=== PATIENT | female | born 1945 | race Caucasian/White ===

== ENCOUNTER 2019-05-15 18:03 | Inpatient (IN) | payer MEDICARE ==
[~2019-05-15] VITALS: Ht 152.4 cm; Wt 59.2 kg
[2019-05-15 18:29] LABS: BILIRUBIN,URINE MODERATE (NEG); CLARITY,URINE CLEAR; COLOR,URINE AMBER; NITRITE,URINE NEGATIVE (NEG); PH,URINE 5.5; PROTEIN,URINE NEGATIVE (NEG-TRACE)
[2019-05-15] MEDS ORDERED: IV NORMAL SALINE 1000ML BAG 1,000 ML IV SCH (18:30)
[2019-05-15 18:35] LABS: BASO # 0.1 x10^3/uL (0.0-0.2); BASO % 1 % (0-3); EOS % 0 % (0-3); HEMATOCRIT 42.1 % (36.0-47.0); HEMOGLOBIN 14.1 g/dL (12.0-15.5); LYMPH # 1.6 x10^3/uL (1.0-4.8); LYMPH % 12 % (24-48); MEAN CORPUSCULAR HEMOGLOBIN 31 pg (25-35); MEAN CORPUSCULAR HGB CONC 33 g/dL (31-37); MEAN CORPUSCULAR VOLUME 93 fL (79-100); MONO # 0.9 x10^3/uL (0.0-1.1); MONO % 7 % (0-9); NEUT # 10.4 x10^3/uL (1.8-7.7); NEUT % 80 % (31-73); PLATELET COUNT 238 x10^3/uL (140-400); RED BLOOD COUNT 4.54 x10^6/uL (3.50-5.40); WHITE BLOOD COUNT 12.9 x10^3/uL (4.0-11.0)
[2019-05-15 18:35] LABS: AMORPHOUS SEDIMENT,UR PRESENT /HPF; BACTERIA,URINE 0 /HPF (0-FEW); RBC,URINE 0 /HPF (0-2); SQUAMOUS EPITHELIAL CELL,UR FEW /LPF; WBC,URINE OCC /HPF (0-4)
--- NOTE | 2019-05-15 18:35 | PHYS DOC ---
Adult General Chief Complaint Chief Complaint: generalized weakness HPI HPI Patient is a 73-year-old female who presents from home via EMS with report of generalized weakness. Family reports that patient has not been out of bed for the last 70 hours. They also indicate the patient has not been eating regularly and has not been taking her medications. Patient does admit to a cough but denies any chest pain or shortness of breath. She does not believe that she is been running a fever. She states that her only complaint is feeling sleepy. She states that otherwise she doesn't know why she is here. Additional history is limited due to likely dementia.[] Review of Systems Review of Systems Constitutional: Denies fever or chills [] Respiratory: Positive cough without shortness of breath [] Cardiovascular: No additional information not addressed in HPI [] GI: Denies abdominal pain, nausea, vomiting or diarrhea [] Integument: Denies rash or skin lesions [] Neurologic: Denies headache, focal weakness or sensory changes [] All other systems were reviewed and found to be within normal limits, except as documented in this note. Current Medications Current Medications Current Medications Medications (Trade) Dose Ordered Sig/Maria Esther Start Time Stop Time Status Last Admin Dose Admin Azithromycin (Zithromax) 500 mg 1X ONCE 05/15/19 20:00 05/15/19 20:01 DC 05/15/19 19:59 500 MG Ceftriaxone Sodium (Rocephin) 1 gm 1X ONCE 05/15/19 20:00 05/15/19 20:01 DC 05/15/19 19:59 1 GM Sodium Chloride 1,000 ml @ 1,000 mls/hr Q1H 05/15/19 18:30 05/15/19 19:29 DC 05/15/19 19:13 1,000 MLS/HR Allergies Allergies Allergies Coded Allergies Type Severity Reaction Last Updated Verified No Known Drug Allergies 05/15/19 No Physical Exam Physical Exam Constitutional: Well developed, well nourished, no acute distress, non-toxic appearance. [] HENT: Normocephalic, atraumatic, bilateral external ears normal, oropharynx dry, no oral exudates, nose normal. [] Eyes: PERRLA, EOMI, conjunctiva normal, no discharge. [] Neck: Normal range of motion, no tenderness, supple, no stridor. [] Cardiovascular: Regular rate and rhythm[] Lungs & Thorax: Coarse rhonchi are noted bilaterally to auscultation [] Abdomen: Bowel sounds normal, soft, no tenderness. [] Skin: Warm, dry, no erythema, no rash. [] Extremities: No tenderness, no cyanosis, no clubbing, ROM intact, no edema. [] Neurologic: Awake and alert, no focal deficits noted. [] Current Patient Data Vital Signs Vital Signs Date Time Temp Pulse Resp B/P (MAP) Pulse Ox O2 Delivery O2 Flow Rate FiO2 05/15/19 18:03 97.7 103 20 94/51 (65) 87 Room Air 97.7 Lab Values Laboratory Tests Test 05/15/19 18:21 05/15/19 18:25 Urine Collection Type U cath Urine Color Ly Urine Clarity Clear Urine pH 5.5 Urine Specific [place] 1.020 Urine Protein Negative mg/dL (NEG-TRACE) Urine Glucose (UA) Negative mg/dL (NEG) Urine Ketones (Stick) Negative mg/dL (NEG) Urine Blood Negative (NEG) Urine Nitrite Negative (NEG) Urine Bilirubin Moderate (NEG) Urine Urobilinogen Dipstick 1.0 mg/dL (0.2 mg/dL) Urine Leukocyte Esterase Negative (NEG) Urine RBC 0 /HPF (0-2) Urine WBC Occ /HPF (0-4) Urine Squamous Epithelial Cells Few /LPF Urine Amorphous Sediment Present /HPF Urine Bacteria 0 /HPF (0-FEW) Urine Mucus Slight /LPF White Blood Count 12.9 x10^3/uL (4.0-11.0) H Red Blood Count 4.54 x10^6/uL (3.50-5.40) Hemoglobin 14.1 g/dL (12.0-15.5) Hematocrit 42.1 % (36.0-47.0) Mean Corpuscular Volume 93 fL (79-100) Mean Corpuscular Hemoglobin 31 pg (25-35) Mean Corpuscular Hemoglobin Concent 33 g/dL (31-37) Red Cell Distribution Width 15.0 % (11.5-14.5) H Platelet Count 238 x10^3/uL (140-400) Neutrophils (%) (Auto) 80 % (31-73) H Lymphocytes (%) (Auto) 12 % (24-48) L Monocytes (%) (Auto) 7 % (0-9) Eosinophils (%) (Auto) 0 % (0-3) Basophils (%) (Auto) 1 % (0-3) Neutrophils # (Auto) 10.4 x10^3/uL (1.8-7.7) H Lymphocytes # (Auto) 1.6 x10^3/uL (1.0-4.8) Monocytes # (Auto) 0.9 x10^3/uL (0.0-1.1) Eosinophils # (Auto) 0.0 x10^3/uL (0.0-0.7) Basophils # (Auto) 0.1 x10^3/uL (0.0-0.2) Sodium Level 140 mmol/L (136-145) Potassium Level 3.9 mmol/L (3.5-5.1) Chloride Level 97 mmol/L (98-107) L Carbon Dioxide Level 31 mmol/L (21-32) Anion Gap 12 (6-14) Blood Urea Nitrogen 28 mg/dL (7-20) H Creatinine 1.7 mg/dL (0.6-1.0) H Estimated GFR (Cockcroft-Gault) 29.3 BUN/Creatinine Ratio 16 (6-20) Glucose Level 139 mg/dL (70-99) H Calcium Level 9.0 mg/dL (8.5-10.1) Magnesium Level 1.1 mg/dL (1.8-2.4) L Total Bilirubin 1.5 mg/dL (0.2-1.0) H Aspartate Amino Transferase (AST) 24 U/L (15-37) Alanine Aminotransferase (ALT) 22 U/L (14-59) Alkaline Phosphatase 74 U/L (46-116) Creatine Kinase 56 U/L (26-192) Troponin I Quantitative 0.065 ng/mL (0.000-0.055) WD-Sto-X-Type Natriuretic Peptide 914 pg/mL (0-449) H Total Protein 6.4 g/dL (6.4-8.2) Albumin 3.4 g/dL (3.4-5.0) Albumin/Globulin Ratio 1.1 (1.0-1.7) Laboratory Tests 05/15/19 18:25 Laboratory Tests 05/15/19 18:25 EKG EKG [] Interpretation Time: EKG demonstrates normal sinus rhythm with rate of 100. Radiology/Procedures Radiology/Procedures [] Course & Med Decision Making Course & Med Decision Making Pertinent Labs and Imaging studies reviewed. (See chart for details) [] Dragon Disclaimer Dragon Disclaimer This electronic medical record was generated, in whole or in part, using a voice recognition dictation system. Departure Departure Impression: Primary Impression: Left lower lobe pneumonia Additional Impression: Elevated troponin Disposition: ADMITTED INPATIENT Admitting Physician: IDA Condition: GOOD Referrals: CLAY SOSA (PCP) Problem Qualifiers Primary Impression: Left lower lobe pneumonia Pneumonia type: due to unspecified organism Qualified Codes: J18.1 - Lobar pneumonia, unspecified organism LC CLAY Jr. DO May 15, 2019 18:35
[2019-05-15 18:42] LABS: CREATININE 1.7 mg/dL (0.6-1.0); GFR 29.3; POTASSIUM 3.9 mmol/L (3.5-5.1)
[2019-05-15 18:50] LABS: ALBUMIN 3.4 g/dL (3.4-5.0); ALBUMIN/GLOBULIN RATIO 1.1 (1.0-1.7); MAGNESIUM 1.1 mg/dL (1.8-2.4); TOTAL BILIRUBIN 1.5 mg/dL (0.2-1.0); TOTAL PROTEIN 6.4 g/dL (6.4-8.2)
[2019-05-15] MEDS ORDERED: cefTRIAXone IV Push 1 GM VIAL. IVP ONE (20:00)
[2019-05-15] MEDS ORDERED: AZITHROMYCIN 250 MG TABLET. PO ONE (20:00)
[2019-05-15] MEDS ORDERED: ACETAMINOPHEN 325 MG TABLET. PO PRN (20:15)
[2019-05-15] MEDS: IPRATRPIUM/ALBUTEROL 0.5/2.5MG 3 ML NEBU. NEB SCH (20:30)
[2019-05-15 22:20] VITALS: BP 115/83
--- NOTE | 2019-05-15 23:28 | RAD ---
PORTABLE CHEST 1V History: Cough Comparison: None. Findings: Single view of the chest is submitted. Cardiac silhouette is within normal limits. There is likely emphysema. There is no dependent pleural fluid or pneumothorax. There is no lobar consolidation. There is calcific opacity of the proximal left humerus. Impression: 1. There is suspected emphysema, no significant infiltrate. 2. There is calcified lesion of the proximal humerus, primary consideration a chondroid lesion. Electronically signed by: He Arreguin MD (05/15/2019 11:25 PM) [facility]
[2019-05-16] MEDS: IV NORMAL SALINE 1000ML BAG 1,000 ML IV SCH ×3 (00:15→16:30)
[2019-05-16 03:15] VITALS: BP 109/63
--- NOTE | 2019-05-16 05:11 | EKG ---
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
[2019-05-16 05:24] LABS: BASO % 0 % (0-3); EOS % 0 % (0-3); HEMATOCRIT 36.5 % (36.0-47.0); HEMOGLOBIN 11.9 g/dL (12.0-15.5); LYMPH # 1.4 x10^3/uL (1.0-4.8); LYMPH % 12 % (24-48); MEAN CORPUSCULAR HEMOGLOBIN 30 pg (25-35); MEAN CORPUSCULAR HGB CONC 33 g/dL (31-37); MEAN CORPUSCULAR VOLUME 93 fL (79-100); MONO # 0.5 x10^3/uL (0.0-1.1); MONO % 4 % (0-9); NEUT # 9.8 x10^3/uL (1.8-7.7); NEUT % 84 % (31-73); PLATELET COUNT 188 x10^3/uL (140-400); RED BLOOD COUNT 3.94 x10^6/uL (3.50-5.40); WHITE BLOOD COUNT 11.7 x10^3/uL (4.0-11.0)
[2019-05-16 05:38] LABS: CALCIUM 8.2 mg/dL (8.5-10.1); CREATININE 1.4 mg/dL (0.6-1.0); GFR 36.7; POTASSIUM 3.5 mmol/L (3.5-5.1)
[2019-05-16 07:00] VITALS: BP 92/54
[2019-05-16] MEDS: IPRATRPIUM/ALBUTEROL 0.5/2.5MG 3 ML NEBU. NEB SCH ×4 (07:37→19:32)
[2019-05-16 08:54] LABS: CHOLESTEROL/HDL RATIO 4.3
[2019-05-16 11:00] VITALS: BP 94/58
--- NOTE | 2019-05-16 11:20 | PDOC2 ---
ELPIDIO CROFT MOTION PICTURE ACTOR 05/16/19 1120: CARDIAC CONSULT DATE OF CONSULT Date of Consult DATE: 05/16/19 TIME: 11:08 REASON FOR CONSULT Reason for Consult: Elevated troponin REFERRING PHYSICIAN Referring Physician: Quyen SOURCE Source: Chart review, Patient HISTORY OF PRESENT ILLNESS HISTORY OF PRESENT ILLNESS This is a 73 yo female admitted for poor appetite, coughing, and looking sleepy and weak. This was noticed by her family member. She has dementia and currently confused, yelling at times. This was noticed in the last 3 days. Limited information as I was not able to contact the family. She is cooperative otherwise and denies any CP nor SOA. She does think that she is in a fci. PAST MEDICAL HISTORY Past Medical History unknown, dementia PAST SURGICAL HISTORY Past Surgical History unknown FAMILY HISTORY Family History: Family History Unknown SOCIAL HISTORY Lives: with Family CURRENT MEDICATIONS CURRENT MEDICATIONS Current Medications Medications (Trade) Dose Ordered Sig/Maria Esther Route PRN Reason Start Time Stop Time Status Last Admin Dose Admin Sodium Chloride 1,000 ml @ 1,000 mls/hr Q1H IV 05/15/19 18:30 05/15/19 19:29 DC 05/15/19 19:13 Ceftriaxone Sodium (Rocephin) 1 gm 1X ONCE IVP 05/15/19 20:00 05/15/19 20:01 DC 05/15/19 19:59 Azithromycin (Zithromax) 500 mg 1X ONCE PO 05/15/19 20:00 05/15/19 20:01 DC 05/15/19 19:59 Sodium Chloride 1,000 ml @ 100 mls/hr Q10H IV 05/15/19 20:30 05/16/19 20:29 05/16/19 00:15 Albuterol/ Ipratropium (Duoneb) 3 ml RTQID NEB 05/15/19 20:30 05/17/19 20:29 05/16/19 07:37 ALLERGIES ALLERGIES: Coded Allergies: No Known Drug Allergies (Unverified , 05/15/19) ROS Review of System limited, confuse PHYSICAL EXAM General: Alert, Cooperative, No acute distress HEENT: Atraumatic, Mucous membr. moist/pink Lungs: Other (diminished bases) Heart: Regular rate (SR), Other (distant heart sounds) Abdomen: Soft, No tenderness Extremities: No cyanosis, No edema Skin: No breakdown, No significant lesion Neuro: Normal speech, Sensation intact Psych/Mental Status: Other (confuse) MUSCULOSKELETAL: Osteoarthritic changes both hands VITALS/I&O VITALS/I&O: Vital Signs Date Time Temp Pulse Resp B/P (MAP) Pulse Ox O2 Delivery O2 Flow Rate FiO2 05/16/19 08:00 Nasal Cannula 3.0 05/16/19 07:40 98 05/16/19 07:00 97.8 79 12 92/54 (67) 97.8 I & O 05/15/19 05/15/19 05/16/19 14:59 22:59 06:59 Intake Total 531 ml Balance 531 ml LABS Lab: Laboratory Tests Test 05/15/19 18:21 05/15/19 18:25 05/15/19 23:00 05/16/19 04:30 Urine Collection Type U cath Urine Color Ly Urine Clarity Clear Urine pH 5.5 Urine Specific [place] 1.020 Urine Protein Negative mg/dL (NEG-TRACE) Urine Glucose (UA) Negative mg/dL (NEG) Urine Ketones (Stick) Negative mg/dL (NEG) Urine Blood Negative (NEG) Urine Nitrite Negative (NEG) Urine Bilirubin Moderate (NEG) Urine Urobilinogen Dipstick 1.0 mg/dL (0.2 mg/dL) Urine Leukocyte Esterase Negative (NEG) Urine RBC 0 /HPF (0-2) Urine WBC Occ /HPF (0-4) Urine Squamous Epithelial Cells Few /LPF Urine Amorphous Sediment Present /HPF Urine Bacteria 0 /HPF (0-FEW) Urine Mucus Slight /LPF White Blood Count 12.9 x10^3/uL (4.0-11.0) H 11.7 x10^3/uL (4.0-11.0) H Red Blood Count 4.54 x10^6/uL (3.50-5.40) 3.94 x10^6/uL (3.50-5.40) Hemoglobin 14.1 g/dL (12.0-15.5) 11.9 g/dL (12.0-15.5) L Hematocrit 42.1 % (36.0-47.0) 36.5 % (36.0-47.0) Mean Corpuscular Volume 93 fL (79-100) 93 fL (79-100) Mean Corpuscular Hemoglobin 31 pg (25-35) 30 pg (25-35) Mean Corpuscular Hemoglobin Concent 33 g/dL (31-37) 33 g/dL (31-37) Red Cell Distribution Width 15.0 % (11.5-14.5) H 15.0 % (11.5-14.5) H Platelet Count 238 x10^3/uL (140-400) 188 x10^3/uL (140-400) Neutrophils (%) (Auto) 80 % (31-73) H 84 % (31-73) H Lymphocytes (%) (Auto) 12 % (24-48) L 12 % (24-48) L Monocytes (%) (Auto) 7 % (0-9) 4 % (0-9) Eosinophils (%) (Auto) 0 % (0-3) 0 % (0-3) Basophils (%) (Auto) 1 % (0-3) 0 % (0-3) Neutrophils # (Auto) 10.4 x10^3/uL (1.8-7.7) H 9.8 x10^3/uL (1.8-7.7) H Lymphocytes # (Auto) 1.6 x10^3/uL (1.0-4.8) 1.4 x10^3/uL (1.0-4.8) Monocytes # (Auto) 0.9 x10^3/uL (0.0-1.1) 0.5 x10^3/uL (0.0-1.1) Eosinophils # (Auto) 0.0 x10^3/uL (0.0-0.7) 0.0 x10^3/uL (0.0-0.7) Basophils # (Auto) 0.1 x10^3/uL (0.0-0.2) 0.0 x10^3/uL (0.0-0.2) Sodium Level 140 mmol/L (136-145) 141 mmol/L (136-145) Potassium Level 3.9 mmol/L (3.5-5.1) 3.5 mmol/L (3.5-5.1) Chloride Level 97 mmol/L (98-107) L 99 mmol/L (98-107) Carbon Dioxide Level 31 mmol/L (21-32) 31 mmol/L (21-32) Anion Gap 12 (6-14) 11 (6-14) Blood Urea Nitrogen 28 mg/dL (7-20) H 29 mg/dL (7-20) H Creatinine 1.7 mg/dL (0.6-1.0) H 1.4 mg/dL (0.6-1.0) H Estimated GFR (Cockcroft-Gault) 29.3 36.7 BUN/Creatinine Ratio 16 (6-20) Glucose Level 139 mg/dL (70-99) H 109 mg/dL (70-99) H Calcium Level 9.0 mg/dL (8.5-10.1) 8.2 mg/dL (8.5-10.1) L Magnesium Level 1.1 mg/dL (1.8-2.4) L Total Bilirubin 1.5 mg/dL (0.2-1.0) H Aspartate Amino Transferase (AST) 24 U/L (15-37) Alanine Aminotransferase (ALT) 22 U/L (14-59) Alkaline Phosphatase 74 U/L (46-116) Creatine Kinase 56 U/L (26-192) Troponin I Quantitative 0.065 ng/mL (0.000-0.055) 0.066 ng/mL (0.000-0.055) 0.072 ng/mL (0.000-0.055) PJ-Cgi-M-Type Natriuretic Peptide 914 pg/mL (0-449) H Total Protein 6.4 g/dL (6.4-8.2) Albumin 3.4 g/dL (3.4-5.0) Albumin/Globulin Ratio 1.1 (1.0-1.7) Triglycerides Level 104 mg/dL (0-150) Cholesterol Level 151 mg/dL (0-200) LDL Cholesterol, Calculated 95 mg/dL (0-100) VLDL Cholesterol, Calculated 21 mg/dL (0-40) Non-HDL Cholesterol Calculated 116 mg/dL (0-129) HDL Cholesterol 35 mg/dL (40-60) L Cholesterol/HDL Ratio 4.3 Laboratory Tests 05/15/19 18:25 05/16/19 04:30 Laboratory Tests 05/15/19 18:25 05/16/19 04:30 ASSESSMENT/PLAN ASSESSMENT/PLAN 1. Hypoxia/Leukocytosis with possible pneumonia 2. Elevated troponin: mild. EKG will repeat with significant artifacts. No noted CP, suspect demand mediated from hypoxia/BUTCH 3. Possible AECOPD 4. Dementia: poor historian 5. BUTCH: prerenal 6. Hypomagnesemia Recommendations 1. I tried to call her house to talk to family member but no one was answering. Will try to clarify her hx and meds when family available. Discussed with RN 2. Preliminary EF normal. IVF, antibiotics on board. 3. Repeat EKG and obtain TTE and lipids, TSH 4. Pulmonary consult pending. Noncontrast CT chest 5. Will recheck Mg and will replace LYNNETTE MESSINA MD 05/16/19 2343: CARDIAC CONSULT ASSESSMENT/PLAN ASSESSMENT/PLAN Pt .seen and examined. Agree with above VIDEOTAPE SALES REPRESENTATIVE note. 73 y.o woman with mild dementia presenting with multiple issues. RLL bronchitis by CT. She has no cardiac symptoms. EKG, echo w/o acute findings. No further CV testing. Pls call with questions. ELPIDIO CROFT APRN May 16, 2019 11:20 LYNNETTE MESSINA MD May 16, 2019 23:43
--- NOTE | 2019-05-16 11:47 | EKG ---
[facility] [address] [place] [address] Test Date: 2019-05-16 Test Time: 11:30:41 Pat Name: THA CH Department: Room: 6 1 Gender: F Training Development Director: CELESTINA : 1945 Requested By: ELPIDIO CROFT Order Number: [id number] Reading MD: Shawn Echavarria MD Measurements Intervals [place] Rate: 77 P: 66 [place]: 186 QRS: 51 QRSD: 76 T: 0 QT: 390 QTc: 443 Interpretive Statements SINUS RHYTHM LOW VOLTAGE ABNORMAL ECG Electronically Signed On 05-16-2019 16:41:34 CDT by Shawn Echavarria MD
--- NOTE | 2019-05-16 12:13 | CARD ---
MR#: [id number] Date of Study: 05/16/2019 Ordering Physician: ELPIDIO CROFT, Referring Physician: ELPIDIO CROFT, Tech: Lorna Napier APPROVED REPORT EXAM: Two-dimensional and M-mode echocardiogram with Doppler and color Doppler. Other Information Quality : FairHR: 82bpm Technically limited study due to smoking and COPD INDICATION Elevated Troponin 2D DIMENSIONS RVDd3.7 (2.9-3.5cm)Left Atrium(2D)2.6 (1.6-4.0cm) IVSd1.4 (0.7-1.1cm)Aortic Root(2D)3.0 (2.0-3.7cm) LVDd3.8 (3.9-5.9cm)LVOT Diameter2.0 (1.8-2.4cm) PWd1.1 (0.7-1.1cm)LVDs2.6 (2.5-4.0cm) FS (%) 28.6 %SV30.5 ml Aortic Valve AoV Peak Del.96.3cm/sAoV VTI18.9cm AO Peak GR.3.7mmHgLVOT VTI 13.33cm AO Mean GR.2mmHg Mitral Valve MV E Qhkphkpk05.1cm/sMV DECEL [id number] MV A Mfclmryf70.2cm/sE/A Ratio0.8 TDI Lateral E' P. V6.76cm/sMedial E' P. V6.31cm/s E/Lateral E'7.6E/Medial E'8.1 Tricuspid Valve TR P. Cmqxvozq894vm/sRAP DZMFQSZR4lmCx TR Peak Gr.02upVxHFIS48oxNa Pulmonary Vein S1 Idirmabt17.2cm/sS2 Lkytagsy60.14cm/s D2 Jrkhhlas78.1cm/sPVa [id number] LEFT VENTRICLE The left ventricle is normal size. There is mild concentric left ventricular hypertrophy. The left ve ntricular systolic function is normal. The Ejection Fraction is 55-60%. There is normal LV segmental wall motion. Transmitral Doppler flow pattern is Grade I-abnormal relaxation pattern. RIGHT VENTRICLE The right ventricle is normal size. There is normal right ventricular wall thickness. The right ventr icular systolic function is normal. ATRIA The left atrium size is normal. The right atrium size is normal. The interatrial septum is intact wit h no evidence for an atrial septal defect or patent foramen ovale as noted on 2-D or Doppler imaging. AORTIC VALVE The aortic valve is normal in structure and function. Doppler and Color Flow revealed no significant aortic regurgitation. There is no significant aortic valvular stenosis. MITRAL VALVE The mitral valve is normal in structure and function. There is no evidence of mitral valve prolapse. There is no mitral valve stenosis. Doppler and Color Flow revealed trace mitral valve regurgitation. TRICUSPID VALVE The tricuspid valve is normal in structure and function. Doppler and Color Flow revealed trace tricus pid regurgitation with an estimated PAP of 29 mmHg. There is no tricuspid valve prolapse or vegetatio n. There is no tricuspid valve stenosis. PULMONIC VALVE The pulmonic valve is not well visualized. Doppler and Color Flow revealed no pulmonic valvular regur gitation. GREAT VESSELS The aortic root is normal in size. The IVC is normal in size and collapses >50% with inspiration. PERICARDIAL EFFUSION There is a trace to mild circumferential pericardial effusion with no hemodynamic significance. Critical Notification Critical Value: No <Conclusion> The left ventricle is normal size. The left ventricular systolic function is normal. The Ejection Fraction is 55-60%. There is mild concentric left ventricular hypertrophy. There is no significant aortic valvular stenosis. Doppler and Color Flow revealed no significant aortic regurgitation. Doppler and Color Flow revealed trace mitral valve regurgitation. Doppler and Color Flow revealed trace tricuspid regurgitation with an estimated PAP of 29 mmHg. There is a trace to mild circumferential pericardial effusion with no hemodynamic significance. Signed by : Az Ramsey MD Electronically Approved : 05/16/2019 12:12:46
[2019-05-16] MEDS ORDERED: MAGNESIUM SULFATE 4GM 100 ML IV ONE (13:00)
--- NOTE | 2019-05-16 13:38 | RAD ---
Examination: CT CHEST WO CONTRAST History: Pneumonia Comparison/Correlation: 05/15/2019 portable chest x-ray exam Findings: CT chest without contrast exam was performed. Sagittal and coronal reformatted images were provided. Significant calcific involvement of the coronary arteries is noted diffusely. Tracheobronchial tree is unremarkable. Right lower lobe bronchial wall thickening is noted likely representing bronchitis. Minimal right posterior basilar atelectasis suggested. Right lateral mid thoracic pulmonary nodule measuring 0.2 cm diameter is present on axial image 29. Punctate nodule involving the lateral aspect of the left upper lung field region is also present on axial image 18. Sclerotic lesion involving the left humeral head which may represent enchondroma. Impression: Right lower lobe bronchitis. Minimal posterior right basilar atelectasis. Bilateral very small pulmonary nodules are present. If the patient has no significant risk factors, then no further follow-up is required. Alternatively, interval follow-up at 12 months should be considered if there are significant risk factors for lung carcinoma. PQRS Compliance Statement: One or more of the following individualized dose reduction techniques were utilized for this examination: 1. Automated exposure control 2. Adjustment of the mA and/or kV according to patient size 3. Use of iterative reconstruction technique Electronically signed by: Kevin Cardoso MD (05/16/2019 1:36 PM) [facility]
--- NOTE | 2019-05-16 14:14 | HP ---
ADMIT DATE: 05/16/2019 CHIEF COMPLAINT: Weakness. HISTORY OF PRESENT ILLNESS: The patient is a pleasant 73-year-old female who presented via ambulance with generalized weakness. She has not been out of bed for 70 hours. She has not been feeling well and has a decreased appetite and not taking her meds. She has had a little bit of cough as well. She feels sleepy. Rates her symptoms at 7/10, it has been occurring for over 70 hours. They tried increasing her meds, but that did not work. While in the ER, the patient is noted to have left lower lobe pneumonia and elevated troponin to 0.072. We are going to admit the patient and consult Pulmonary and Cardiology. PAST MEDICAL HISTORY: Dementia. ALLERGIES: None. FAMILY HISTORY: Dementia. SOCIAL HISTORY: She does not drink, smoke or take drugs. MEDICATIONS: Reviewed, please refer to the MRAD. REVIEW OF SYSTEMS: Unable to obtain. The patient is too confused. PHYSICAL EXAMINATION: PHYSICAL EXAMINATION: VITALS: Within normal limits and are stable. GENERAL: No apparent distress. Alert and oriented. HEENT: Head is normocephalic, atraumatic, pupils were equally round and reactive to light and accommodation. NECK: Supple, no JVD, no thyromegaly was noted. LUNGS: She has some right lower lobe crackles. HEART: RRR, S1, S2 present. Peripheral pulses intact, no obvious murmurs were noted. ABDOMEN: Soft, nontender. Positive bowel sounds no organomegaly, normal bowel sounds. EXTREMITIES: Without any cyanosis, clubbing, or edema. Pedal pulses intact, Homans sign is negative. NEUROLOGIC: She has dementia and has decreased memory PSYCHIATRIC: Normal affect, normal mood. Stable. SKIN: No ulcerations or rashes, good skin turgor, no jaundice. VASCULAR: Good capillary refill, neurovascular bundle appears to be intact. LABORATORY DATA: White count is 12, hemoglobin 14. BUN is 28, creatinine 1.7, glucose 139. Chest x-ray shows left lower lobe pneumonia and right lower lobe bronchitis. ASSESSMENT AND PLAN: Pneumonia. The patient is being admitted. We will consult Cardiology and Pulmonary. IV antibiotics, DuoNebs, oxygen, home meds, PT, OT, DVT prophylaxis, cardiac monitoring. NIAL K. CASTLE, DO DR: DICK/sayra JOB#: [id number] / [id number]
--- NOTE | 2019-05-16 14:39 | NUR ---
SW following pt for dc planning. Chart reviewed and discussed with RN. Pt lives at home. PT/OT pending. SW will await for PT/OT assessment to eval skilled needs. Will continue to follow.
[2019-05-16 15:00] VITALS: BP 141/74
[2019-05-16] MEDS ORDERED: ALBUTEROL SULFATE 2.5 MG/3 ML NEBU. NEB PRN (15:30)
--- NOTE | 2019-05-16 15:31 | PDOC ---
PULMONARY PROGRESS NOTES Vitals Vital Signs Date Time Temp Pulse Resp B/P (MAP) Pulse Ox O2 Delivery O2 Flow Rate FiO2 05/16/19 15:20 97 Nasal Cannula 3.0 05/16/19 11:00 98.1 77 20 94/58 (70) 98.1 Labs Laboratory Tests Test 05/15/19 18:21 05/15/19 18:25 05/15/19 23:00 05/16/19 04:30 Urine Collection Type U cath Urine Color Ly Urine Clarity Clear Urine pH 5.5 Urine Specific [place] 1.020 Urine Protein Negative mg/dL (NEG-TRACE) Urine Glucose (UA) Negative mg/dL (NEG) Urine Ketones (Stick) Negative mg/dL (NEG) Urine Blood Negative (NEG) Urine Nitrite Negative (NEG) Urine Bilirubin Moderate (NEG) Urine Urobilinogen Dipstick 1.0 mg/dL (0.2 mg/dL) Urine Leukocyte Esterase Negative (NEG) Urine RBC 0 /HPF (0-2) Urine WBC Occ /HPF (0-4) Urine Squamous Epithelial Cells Few /LPF Urine Amorphous Sediment Present /HPF Urine Bacteria 0 /HPF (0-FEW) Urine Mucus Slight /LPF White Blood Count 12.9 x10^3/uL (4.0-11.0) 11.7 x10^3/uL (4.0-11.0) Red Blood Count 4.54 x10^6/uL (3.50-5.40) 3.94 x10^6/uL (3.50-5.40) Hemoglobin 14.1 g/dL (12.0-15.5) 11.9 g/dL (12.0-15.5) Hematocrit 42.1 % (36.0-47.0) 36.5 % (36.0-47.0) Mean Corpuscular Volume 93 fL (79-100) 93 fL (79-100) Mean Corpuscular Hemoglobin 31 pg (25-35) 30 pg (25-35) Mean Corpuscular Hemoglobin Concent 33 g/dL (31-37) 33 g/dL (31-37) Red Cell Distribution Width 15.0 % (11.5-14.5) 15.0 % (11.5-14.5) Platelet Count 238 x10^3/uL (140-400) 188 x10^3/uL (140-400) Neutrophils (%) (Auto) 80 % (31-73) 84 % (31-73) Lymphocytes (%) (Auto) 12 % (24-48) 12 % (24-48) Monocytes (%) (Auto) 7 % (0-9) 4 % (0-9) Eosinophils (%) (Auto) 0 % (0-3) 0 % (0-3) Basophils (%) (Auto) 1 % (0-3) 0 % (0-3) Neutrophils # (Auto) 10.4 x10^3/uL (1.8-7.7) 9.8 x10^3/uL (1.8-7.7) Lymphocytes # (Auto) 1.6 x10^3/uL (1.0-4.8) 1.4 x10^3/uL (1.0-4.8) Monocytes # (Auto) 0.9 x10^3/uL (0.0-1.1) 0.5 x10^3/uL (0.0-1.1) Eosinophils # (Auto) 0.0 x10^3/uL (0.0-0.7) 0.0 x10^3/uL (0.0-0.7) Basophils # (Auto) 0.1 x10^3/uL (0.0-0.2) 0.0 x10^3/uL (0.0-0.2) Sodium Level 140 mmol/L (136-145) 141 mmol/L (136-145) Potassium Level 3.9 mmol/L (3.5-5.1) 3.5 mmol/L (3.5-5.1) Chloride Level 97 mmol/L (98-107) 99 mmol/L (98-107) Carbon Dioxide Level 31 mmol/L (21-32) 31 mmol/L (21-32) Anion Gap 12 (6-14) 11 (6-14) Blood Urea Nitrogen 28 mg/dL (7-20) 29 mg/dL (7-20) Creatinine 1.7 mg/dL (0.6-1.0) 1.4 mg/dL (0.6-1.0) Estimated GFR (Cockcroft-Gault) 29.3 36.7 BUN/Creatinine Ratio 16 (6-20) Glucose Level 139 mg/dL (70-99) 109 mg/dL (70-99) Calcium Level 9.0 mg/dL (8.5-10.1) 8.2 mg/dL (8.5-10.1) Magnesium Level 1.1 mg/dL (1.8-2.4) 1.2 mg/dL (1.8-2.4) Total Bilirubin 1.5 mg/dL (0.2-1.0) Aspartate Amino Transf (AST/SGOT) 24 U/L (15-37) Alanine Aminotransferase (ALT/SGPT) 22 U/L (14-59) Alkaline Phosphatase 74 U/L (46-116) Creatine Kinase 56 U/L (26-192) Troponin I Quantitative 0.065 ng/mL (0.000-0.055) 0.066 ng/mL (0.000-0.055) 0.072 ng/mL (0.000-0.055) CP-Yrx-J-Type Natriuretic Peptide 914 pg/mL (0-449) Total Protein 6.4 g/dL (6.4-8.2) Albumin 3.4 g/dL (3.4-5.0) Albumin/Globulin Ratio 1.1 (1.0-1.7) Triglycerides Level 104 mg/dL (0-150) Cholesterol Level 151 mg/dL (0-200) LDL Cholesterol, Calculated 95 mg/dL (0-100) VLDL Cholesterol, Calculated 21 mg/dL (0-40) Non-HDL Cholesterol Calculated 116 mg/dL (0-129) HDL Cholesterol 35 mg/dL (40-60) Cholesterol/HDL Ratio 4.3 Thyroid Stimulating Hormone (TSH) 0.928 uIU/mL (0.358-3.74) Test 05/16/19 13:20 Lactic Acid Level 2.0 mmol/L (0.4-2.0) Laboratory Tests Test 05/15/19 18:21 05/15/19 18:25 05/15/19 23:00 05/16/19 04:30 Urine Collection Type U cath Urine Color Ly Urine Clarity Clear Urine pH 5.5 Urine Specific [place] 1.020 Urine Protein Negative mg/dL (NEG-TRACE) Urine Glucose (UA) Negative mg/dL (NEG) Urine Ketones (Stick) Negative mg/dL (NEG) Urine Blood Negative (NEG) Urine Nitrite Negative (NEG) Urine Bilirubin Moderate (NEG) Urine Urobilinogen Dipstick 1.0 mg/dL (0.2 mg/dL) Urine Leukocyte Esterase Negative (NEG) Urine RBC 0 /HPF (0-2) Urine WBC Occ /HPF (0-4) Urine Squamous Epithelial Cells Few /LPF Urine Amorphous Sediment Present /HPF Urine Bacteria 0 /HPF (0-FEW) Urine Mucus Slight /LPF White Blood Count 12.9 x10^3/uL (4.0-11.0) 11.7 x10^3/uL (4.0-11.0) Red Blood Count 4.54 x10^6/uL (3.50-5.40) 3.94 x10^6/uL (3.50-5.40) Hemoglobin 14.1 g/dL (12.0-15.5) 11.9 g/dL (12.0-15.5) Hematocrit 42.1 % (36.0-47.0) 36.5 % (36.0-47.0) Mean Corpuscular Volume 93 fL (79-100) 93 fL (79-100) Mean Corpuscular Hemoglobin 31 pg (25-35) 30 pg (25-35) Mean Corpuscular Hemoglobin Concent 33 g/dL (31-37) 33 g/dL (31-37) Red Cell Distribution Width 15.0 % (11.5-14.5) 15.0 % (11.5-14.5) Platelet Count 238 x10^3/uL (140-400) 188 x10^3/uL (140-400) Neutrophils (%) (Auto) 80 % (31-73) 84 % (31-73) Lymphocytes (%) (Auto) 12 % (24-48) 12 % (24-48) Monocytes (%) (Auto) 7 % (0-9) 4 % (0-9) Eosinophils (%) (Auto) 0 % (0-3) 0 % (0-3) Basophils (%) (Auto) 1 % (0-3) 0 % (0-3) Neutrophils # (Auto) 10.4 x10^3/uL (1.8-7.7) 9.8 x10^3/uL (1.8-7.7) Lymphocytes # (Auto) 1.6 x10^3/uL (1.0-4.8) 1.4 x10^3/uL (1.0-4.8) Monocytes # (Auto) 0.9 x10^3/uL (0.0-1.1) 0.5 x10^3/uL (0.0-1.1) Eosinophils # (Auto) 0.0 x10^3/uL (0.0-0.7) 0.0 x10^3/uL (0.0-0.7) Basophils # (Auto) 0.1 x10^3/uL (0.0-0.2) 0.0 x10^3/uL (0.0-0.2) Sodium Level 140 mmol/L (136-145) 141 mmol/L (136-145) Potassium Level 3.9 mmol/L (3.5-5.1) 3.5 mmol/L (3.5-5.1) Chloride Level 97 mmol/L (98-107) 99 mmol/L (98-107) Carbon Dioxide Level 31 mmol/L (21-32) 31 mmol/L (21-32) Anion Gap 12 (6-14) 11 (6-14) Blood Urea Nitrogen 28 mg/dL (7-20) 29 mg/dL (7-20) Creatinine 1.7 mg/dL (0.6-1.0) 1.4 mg/dL (0.6-1.0) Estimated GFR (Cockcroft-Gault) 29.3 36.7 BUN/Creatinine Ratio 16 (6-20) Glucose Level 139 mg/dL (70-99) 109 mg/dL (70-99) Calcium Level 9.0 mg/dL (8.5-10.1) 8.2 mg/dL (8.5-10.1) Magnesium Level 1.1 mg/dL (1.8-2.4) 1.2 mg/dL (1.8-2.4) Total Bilirubin 1.5 mg/dL (0.2-1.0) Aspartate Amino Transf (AST/SGOT) 24 U/L (15-37) Alanine Aminotransferase (ALT/SGPT) 22 U/L (14-59) Alkaline Phosphatase 74 U/L (46-116) Creatine Kinase 56 U/L (26-192) Troponin I Quantitative 0.065 ng/mL (0.000-0.055) 0.066 ng/mL (0.000-0.055) 0.072 ng/mL (0.000-0.055) LU-Uhi-S-Type Natriuretic Peptide 914 pg/mL (0-449) Total Protein 6.4 g/dL (6.4-8.2) Albumin 3.4 g/dL (3.4-5.0) Albumin/Globulin Ratio 1.1 (1.0-1.7) Triglycerides Level 104 mg/dL (0-150) Cholesterol Level 151 mg/dL (0-200) LDL Cholesterol, Calculated 95 mg/dL (0-100) VLDL Cholesterol, Calculated 21 mg/dL (0-40) Non-HDL Cholesterol Calculated 116 mg/dL (0-129) HDL Cholesterol 35 mg/dL (40-60) Cholesterol/HDL Ratio 4.3 Thyroid Stimulating Hormone (TSH) 0.928 uIU/mL (0.358-3.74) Test 05/16/19 13:20 Lactic Acid Level 2.0 mmol/L (0.4-2.0) Impression . PNEUMONIA SEE ORDERS DICTATED BO BREWER MD May 16, 2019 15:30
[2019-05-16] MEDS: ALBUTEROL SULFATE 2.5 MG/3 ML NEBU. NEB SCH ×2 (16:00→20:00)
[2019-05-16] MEDS ORDERED: VANCOMYCIN 1.25 GM in IV NORMAL SALINE 250ML 250 ML IV ONE (16:30)
[2019-05-16 19:20] VITALS: BP 111/45
[2019-05-16] MEDS: VANCOMYCIN PER PHARMACY MC PRN ×2 (19:26→19:32)
--- NOTE | 2019-05-16 19:33 | NUR ---
Pharmacy Vancomycin Dosing Note S:Consulted to monitor and dose vancomycin started 05/16/19. O:THA CH is a 73 year old F with Bacteremia Pneumonia . Height: 5 feet, 0 inches Weight: 54.907226 kg [place] Body Weight: 45.50 Adjusted Body Weight: 48.90 Dosing Weight: Actual Other Antibiotics: CTX 05/16 - DOXY 05/16 - LABS: Last BUN: 29 Last Creatinine: 1.4 Creatinine Clearance: 27 mL/min Last WBC: 11.7 Last Procalcitonin: - Tmax (past 24 hours): 98.1 Microbiology: 05/15 GPC CLUSTERS I/O: Drug Levels: Last level: on at Last dose given 05/16/19 at 1800 Vancomycin Dosing: Loading Dose: 1250 mg x1 Dosing Weight: Actual Target Trough: 15-20 A: Based on: WEIGHT, CRCL~27, P: 1. INITIATE Vancomycin 750 mg IV q24h AFTER LOADING DOSE 1250 MG. 2. Follow up Trough level on 05/18/19 at 1730 3. Pharmacy will continue to monitor, follow and adjust therapy as needed. BEATRIZ CRUZ [facility], 05/16/19 1932
[2019-05-16] MEDS ORDERED: cefTRIAXone IV Push 1 GM VIAL. IVP SCH (20:00)
[2019-05-16] MEDS: DOXYCYCLINE HYCLATE 100 MG TABLET PO SCH (20:04)
[2019-05-16 23:20] VITALS: BP 112/63
--- NOTE | 2019-05-17 03:07 | CONS ---
DATE OF CONSULTATION: 05/16/2019 ATTENDING PHYSICIAN: Dr. Montalvo. REASON FOR CONSULTATION: The patient seen in pulmonary consultation at the request of Dr. Montalvo for abnormal x-ray. HISTORY OF PRESENT ILLNESS: The patient is a 73-year-old who is a very poor historian, presented via ambulance, weakness. Apparently, she was found out of her bed for approximately 7 hours, not feeling good. She was seen in the Emergency Room and was admitted. She had a chest x-ray, which I reviewed. The x-ray revealed emphysematous changes. CT chest, confirming emphysema. In addition, there was a right lower lobe basilar infiltrate, atelectasis. I was asked to see in consultation. The patient does report being short of breath with exertion, coughing up some mucus. No chest pain or pressure. She does not know if she wears oxygen at home. She also denied fever or chills. PAST MEDICAL HISTORY: Otherwise unknown. She has dementia. ALLERGIES: No known drug allergies. SOCIAL HISTORY: She currently does not smoke. MEDICATIONS LIST: Reviewed. REVIEW OF SYSTEMS: Unobtainable secondary to the patient's confusion. PHYSICAL EXAMINATION: GENERAL: She was in no respiratory distress on 3 L of oxygen supplementation, saturation 93%. HEENT: Eyes, the sclerae were nonicteric. NECK: Jugular venous distention was not elevated. No lymphadenopathy. CHEST: Full expansion. LUNGS: Poor airway flow with no wheezes. CARDIOVASCULAR: Regular rate and rhythm with S1, S2, no S3. ABDOMEN: Soft, nontender, nondistended. EXTREMITIES: No clubbing, cyanosis or edema. LABORATORY DATA: Reviewed. White count was elevated. Electrolytes were noted. BUN and creatinine was noted. BUN was elevated, creatinine was elevated. Total bilirubin was slightly elevated. IMPRESSION: 1. Abnormal x-ray compatible with pneumonia. 2. Pneumonia, suspect gram-negative. 3. Underlying dementia. 4. Toxic encephalopathy, present upon admission secondary to pneumonia. 5. Leukocytosis. 6. Renal insufficiency. RECOMMENDATIONS: 1. We will continue current antibiotics. 2. Oxygen supplementation. 3. DVT and GI prophylaxis. I do appreciate the privilege in participating in the patient's care. BO BREWER MD DR: PHILIP/sayra JOB#: [id number] / [id number]
[2019-05-17 03:20] VITALS: BP 134/61
[2019-05-17 04:47] LABS: CALCIUM 7.9 mg/dL (8.5-10.1); CREATININE 1.2 mg/dL (0.6-1.0); GFR 43.8
[2019-05-17 04:52] LABS: POTASSIUM 2.8 mmol/L (3.5-5.1)
[2019-05-17] MEDS ORDERED: POTASSIUM CHLORIDE 20 MEQ TABLET.ER. PO ONE (05:15)
[2019-05-17 07:25] VITALS: BP 182/79
[2019-05-17] MEDS: ALBUTEROL SULFATE 2.5 MG/3 ML NEBU. NEB SCH ×4 (08:00→21:17)
[2019-05-17] MEDS: IPRATRPIUM/ALBUTEROL 0.5/2.5MG 3 ML NEBU. NEB SCH ×4 (08:22→19:32)
--- NOTE | 2019-05-17 11:27 | PDOC ---
PULMONARY PROGRESS NOTES Subjective NO COMPLAINS NO DISTRESS Vitals Vital Signs Date Time Temp Pulse Resp B/P (MAP) Pulse Ox O2 Delivery O2 Flow Rate FiO2 05/17/19 08:24 99 Nasal Cannula 3.0 05/17/19 07:25 97.5 113 19 182/79 (113) 97.5 ROS: No Nausea, No Chest Pain, No Abdominal Pain, No Increase Cough General: Alert HEENT: Other (NO JVD) Lungs: Clear Cardiovascular: S1, S2 Abdomen: Soft Neuro Exam: Alert Extremities: No Edema Skin: Warm Labs Laboratory Tests Test 05/15/19 18:21 05/15/19 18:25 05/15/19 23:00 05/16/19 04:30 Urine Collection Type U cath Urine Color Ly Urine Clarity Clear Urine pH 5.5 Urine Specific [place] 1.020 Urine Protein Negative mg/dL (NEG-TRACE) Urine Glucose (UA) Negative mg/dL (NEG) Urine Ketones (Stick) Negative mg/dL (NEG) Urine Blood Negative (NEG) Urine Nitrite Negative (NEG) Urine Bilirubin Moderate (NEG) Urine Urobilinogen Dipstick 1.0 mg/dL (0.2 mg/dL) Urine Leukocyte Esterase Negative (NEG) Urine RBC 0 /HPF (0-2) Urine WBC Occ /HPF (0-4) Urine Squamous Epithelial Cells Few /LPF Urine Amorphous Sediment Present /HPF Urine Bacteria 0 /HPF (0-FEW) Urine Mucus Slight /LPF White Blood Count 12.9 x10^3/uL (4.0-11.0) 11.7 x10^3/uL (4.0-11.0) Red Blood Count 4.54 x10^6/uL (3.50-5.40) 3.94 x10^6/uL (3.50-5.40) Hemoglobin 14.1 g/dL (12.0-15.5) 11.9 g/dL (12.0-15.5) Hematocrit 42.1 % (36.0-47.0) 36.5 % (36.0-47.0) Mean Corpuscular Volume 93 fL (79-100) 93 fL (79-100) Mean Corpuscular Hemoglobin 31 pg (25-35) 30 pg (25-35) Mean Corpuscular Hemoglobin Concent 33 g/dL (31-37) 33 g/dL (31-37) Red Cell Distribution Width 15.0 % (11.5-14.5) 15.0 % (11.5-14.5) Platelet Count 238 x10^3/uL (140-400) 188 x10^3/uL (140-400) Neutrophils (%) (Auto) 80 % (31-73) 84 % (31-73) Lymphocytes (%) (Auto) 12 % (24-48) 12 % (24-48) Monocytes (%) (Auto) 7 % (0-9) 4 % (0-9) Eosinophils (%) (Auto) 0 % (0-3) 0 % (0-3) Basophils (%) (Auto) 1 % (0-3) 0 % (0-3) Neutrophils # (Auto) 10.4 x10^3/uL (1.8-7.7) 9.8 x10^3/uL (1.8-7.7) Lymphocytes # (Auto) 1.6 x10^3/uL (1.0-4.8) 1.4 x10^3/uL (1.0-4.8) Monocytes # (Auto) 0.9 x10^3/uL (0.0-1.1) 0.5 x10^3/uL (0.0-1.1) Eosinophils # (Auto) 0.0 x10^3/uL (0.0-0.7) 0.0 x10^3/uL (0.0-0.7) Basophils # (Auto) 0.1 x10^3/uL (0.0-0.2) 0.0 x10^3/uL (0.0-0.2) Sodium Level 140 mmol/L (136-145) 141 mmol/L (136-145) Potassium Level 3.9 mmol/L (3.5-5.1) 3.5 mmol/L (3.5-5.1) Chloride Level 97 mmol/L (98-107) 99 mmol/L (98-107) Carbon Dioxide Level 31 mmol/L (21-32) 31 mmol/L (21-32) Anion Gap 12 (6-14) 11 (6-14) Blood Urea Nitrogen 28 mg/dL (7-20) 29 mg/dL (7-20) Creatinine 1.7 mg/dL (0.6-1.0) 1.4 mg/dL (0.6-1.0) Estimated GFR (Cockcroft-Gault) 29.3 36.7 BUN/Creatinine Ratio 16 (6-20) Glucose Level 139 mg/dL (70-99) 109 mg/dL (70-99) Calcium Level 9.0 mg/dL (8.5-10.1) 8.2 mg/dL (8.5-10.1) Magnesium Level 1.1 mg/dL (1.8-2.4) 1.2 mg/dL (1.8-2.4) Total Bilirubin 1.5 mg/dL (0.2-1.0) Aspartate Amino Transf (AST/SGOT) 24 U/L (15-37) Alanine Aminotransferase (ALT/SGPT) 22 U/L (14-59) Alkaline Phosphatase 74 U/L (46-116) Creatine Kinase 56 U/L (26-192) Troponin I Quantitative 0.065 ng/mL (0.000-0.055) 0.066 ng/mL (0.000-0.055) 0.072 ng/mL (0.000-0.055) XN-Zgt-B-Type Natriuretic Peptide 914 pg/mL (0-449) Total Protein 6.4 g/dL (6.4-8.2) Albumin 3.4 g/dL (3.4-5.0) Albumin/Globulin Ratio 1.1 (1.0-1.7) Triglycerides Level 104 mg/dL (0-150) Cholesterol Level 151 mg/dL (0-200) LDL Cholesterol, Calculated 95 mg/dL (0-100) VLDL Cholesterol, Calculated 21 mg/dL (0-40) Non-HDL Cholesterol Calculated 116 mg/dL (0-129) HDL Cholesterol 35 mg/dL (40-60) Cholesterol/HDL Ratio 4.3 Thyroid Stimulating Hormone (TSH) 0.928 uIU/mL (0.358-3.74) Test 05/16/19 13:20 05/17/19 03:45 Lactic Acid Level 2.0 mmol/L (0.4-2.0) Sodium Level 137 mmol/L (136-145) Potassium Level 2.8 mmol/L (3.5-5.1) Chloride Level 101 mmol/L (98-107) Carbon Dioxide Level 26 mmol/L (21-32) Anion Gap 10 (6-14) Blood Urea Nitrogen 22 mg/dL (7-20) Creatinine 1.2 mg/dL (0.6-1.0) Estimated GFR (Cockcroft-Gault) 43.8 Glucose Level 86 mg/dL (70-99) Calcium Level 7.9 mg/dL (8.5-10.1) Laboratory Tests Test 05/16/19 13:20 05/17/19 03:45 Lactic Acid Level 2.0 mmol/L (0.4-2.0) Sodium Level 137 mmol/L (136-145) Potassium Level 2.8 mmol/L (3.5-5.1) Chloride Level 101 mmol/L (98-107) Carbon Dioxide Level 26 mmol/L (21-32) Anion Gap 10 (6-14) Blood Urea Nitrogen 22 mg/dL (7-20) Creatinine 1.2 mg/dL (0.6-1.0) Estimated GFR (Cockcroft-Gault) 43.8 Glucose Level 86 mg/dL (70-99) Calcium Level 7.9 mg/dL (8.5-10.1) Impression . IMPRESSION: 1. Abnormal x-ray compatible with pneumonia. 2. Pneumonia, suspect gram-negative. 3. Underlying dementia. 4. Toxic encephalopathy, present upon admission secondary to pneumonia. 5. Leukocytosis. 6. Renal insufficiency. Plan . BETTER TODAY WILL CONTINUE THE SAME 1. We will continue current antibiotics. 2. Oxygen supplementation. 3. DVT and GI prophylaxis. BO BREWER MD May 17, 2019 11:27
[2019-05-17 11:35] VITALS: BP 113/74
[2019-05-17] MEDS: VANCOMYCIN PER PHARMACY MC PRN (12:06)
--- NOTE | 2019-05-17 12:20 | PDOC ---
[facility] PROGRESS NOTE Chief Complaint Chief Complaint Pneumonia Dementia History of Present Illness History of Present Illness 05/17/19 Pt seen and examined at bedside Pt laying in bed with MIGEL QUACH RN who says pt's daughter has expressed difficulty in caring for pt and believes LTC is in the pt's best interest Vitals/I&O Vitals/I&O: Vital Signs Date Time Temp Pulse Resp B/P (MAP) Pulse Ox O2 Delivery O2 Flow Rate FiO2 05/17/19 11:35 98.0 87 18 113/74 (87) 95 Room Air 98.0 05/17/19 08:24 3.0 I & O 05/16/19 05/16/19 05/17/19 14:59 22:59 06:59 Intake Total 0 ml Balance 0 ml Physical Exam General: Alert, Cooperative, No acute distress Heart: Regular rate (SR), Other (distant heart sounds) Lungs: Clear Abdomen: Soft, No tenderness Extremities: No clubbing, No cyanosis, No edema Skin: No rashes, No breakdown, No significant lesion Labs Labs: Laboratory Tests Test 05/16/19 13:20 05/17/19 03:45 Lactic Acid Level 2.0 mmol/L (0.4-2.0) Sodium Level 137 mmol/L (136-145) Potassium Level 2.8 mmol/L (3.5-5.1) Chloride Level 101 mmol/L (98-107) Carbon Dioxide Level 26 mmol/L (21-32) Anion Gap 10 (6-14) Blood Urea Nitrogen 22 mg/dL (7-20) Creatinine 1.2 mg/dL (0.6-1.0) Estimated GFR (Cockcroft-Gault) 43.8 Glucose Level 86 mg/dL (70-99) Calcium Level 7.9 mg/dL (8.5-10.1) Review of Systems Review of Systems: Denies LOGAN Denies vision change Assessment and Plan Assessmemt and Plan Problems Medical Problems: (1) Elevated troponin Status: Acute (2) Left lower lobe pneumonia Status: Acute Assessment Pneumonia Dementia Plan Consult for LTC Cardiac monitoring IV ABX Duonebs PRN 02 DVT prophylaxis Appreciate cardio input Comment Review of Relevant I have reviewed the following items anuel (where applicable) has been applied. Medications: Current Medications Medications (Trade) Dose Ordered Sig/Maria Esther Route PRN Reason Start Time Stop Time Status Last Admin Dose Admin Magnesium Sulfate/ Dextrose 100 ml @ 25 mls/hr 1X ONCE IV 05/16/19 13:00 05/16/19 16:59 DC 05/16/19 13:08 Ceftriaxone Sodium (Rocephin) 1 gm Q24H IVP 05/16/19 20:00 05/16/19 20:05 Albuterol Sulfate (Ventolin Neb Soln) 2.5 mg RTQID NEB 05/16/19 16:00 05/17/19 08:23 Doxycycline Hyclate (Vibra-Tab) 100 mg BID PO 05/16/19 21:00 05/16/19 20:05 Vancomycin HCl (Vanco Per Pharmacy) 1 each PRN DAILY PRN MC SEE COMMENTS 05/16/19 16:00 05/17/19 12:06 Vancomycin HCl 1.25 gm/Sodium Chloride 250 ml @ 166.667 mls/hr 1X ONCE IV 05/16/19 16:30 05/16/19 17:59 DC 05/16/19 17:44 Potassium Chloride (Klor-Con) 40 meq 1X ONCE PO 05/17/19 05:15 05/17/19 05:16 DC 05/17/19 05:54 JUDY UNDERWOOD III DO May 17, 2019 12:20
--- NOTE | 2019-05-17 12:46 | PDOC ---
Infectious Disease Note Vital Sign Vital Signs Vital Signs Date Time Temp Pulse Resp B/P (MAP) Pulse Ox O2 Delivery O2 Flow Rate FiO2 05/17/19 11:35 98.0 87 18 113/74 (87) 95 Room Air 98.0 05/17/19 08:24 3.0 Labs Lab Laboratory Tests Test 05/16/19 13:20 05/17/19 03:45 Lactic Acid Level 2.0 mmol/L (0.4-2.0) Sodium Level 137 mmol/L (136-145) Potassium Level 2.8 mmol/L (3.5-5.1) Chloride Level 101 mmol/L (98-107) Carbon Dioxide Level 26 mmol/L (21-32) Anion Gap 10 (6-14) Blood Urea Nitrogen 22 mg/dL (7-20) Creatinine 1.2 mg/dL (0.6-1.0) Estimated GFR (Cockcroft-Gault) 43.8 Glucose Level 86 mg/dL (70-99) Calcium Level 7.9 mg/dL (8.5-10.1) Micro 05/15. BLOOD CULTURE Final GRAM POSITIVE COCCI IN CLUSTERS, SUGGESTIVE OF STAPH, IN 2 OF 2 BOTTLES, ONE SET DRAWN. Objective Assessment GPC bacteremia from 05/15. Pneumonia Pulmonary nodules Leukocytosis BUTCH - improved Generalized weakness Encephalopathy Plan Plan of Care continue vanc continue doxy for atypicals add Zosyn d/c Rocephin Monitor renal function closely f/u cultures Repeat BC Maintain aspiration precautions Supportive care D/w nursing Thank you [id number] Patient seen and examined. Chart reviewed in detail. Case discussed with T[employer] LINE WORKER. Agree with above plan. DAVON WONG APRN May 17, 2019 12:46 JAMI CARDOSO MD May 17, 2019 20:31
[2019-05-17] MEDS: PIPERACILLIN/TAZOBACTAM 3.375 GM in IV NORMAL SALINE 50ML 50 ML IV SCH ×2 (12:52→17:08)
[2019-05-17] MEDS: DOXYCYCLINE HYCLATE 100 MG TABLET PO SCH ×2 (12:52→20:54)
--- NOTE | 2019-05-17 13:29 | CONS ---
DATE OF CONSULTATION: 05/17/2019 REFERRING PHYSICIAN: Dr. Montalvo. REASON FOR CONSULTATION: Positive blood cultures. HISTORY OF PRESENT ILLNESS: This patient is a 73-year-old female who was brought in with complaints of generalized weakness and loss of appetite. She lives by herself and was found lying in bed by a family member. She was confused. A chest CT showed right lower lobe bronchial wall thickening and bilateral very small pulmonary nodules. She was admitted with pneumonia and is currently on vancomycin, ceftriaxone and doxycycline. Blood cultures have since returned positive with Gram-positive cocci in 2 of 2 bottles; hence, ID consulted. PAST MEDICAL HISTORY: Unknown. PAST SURGICAL HISTORY: Unknown. FAMILY HISTORY: Unknown. SOCIAL HISTORY: Lives at home. ALLERGIES: No known drug allergies. MEDICATIONS: Vancomycin, ceftriaxone, doxycycline. Other medications are available and have been reviewed on the MAR. REVIEW OF SYSTEMS: The patient is confused. She does not know where she is at. She denies pain, upset stomach or chills. No vomiting, diarrhea or fevers reported. She states she is not very hungry. Nothing sounds good to eat. PHYSICAL EXAMINATION: VITAL SIGNS: Temperature 98.0, blood pressure 113/74, heart rate 87, respiratory rate 18, pulse oximetry 95% on room air. BMI 22. GENERAL: The patient is propped up in bed, alert, in no apparent distress. HEENT: Pupils equally round. Normal conjunctivae. Oropharynx pink, dry. NECK: Supple. LUNGS: Clear to auscultation. CARDIAC: S1, S2. ABDOMEN: Soft, nontender with bowel sounds present. EXTREMITIES: No gross edema or cyanosis. SKIN: Warm to touch. No signs of rash. NEUROLOGIC: Alert and disoriented x 3, but cooperative. LABORATORY DATA: Today's WBC 11.7 from 12.9, hemoglobin 11.9, platelets 188,000. Creatinine 1.2 from 1.7 on admission, BUN 22, sodium 137, potassium 2.8. Lactic acid 2.0, total bilirubin 1.5, AST 24, ALT 22. Troponin 0.072. BNP 914. TSH 0.928. Urinalysis unremarkable for infection. Blood cultures show gram-positive cocci in clusters suggestive of staph in 2 bottles from 05/15/2019. Chest CT per HPI. IMPRESSION: 1. Gram-positive cocci bacteremia from 05/15/2019. 2. Pneumonia. 3. Pulmonary nodules. 4. Leukocytosis. 5. Acute kidney injury, improved. 6. Generalized weakness. 7. Encephalopathy. 8. Elevated troponin. PLAN: Continue vancomycin and doxycycline for atypical coverage. Add Zosyn. Discontinue ceftriaxone. Monitor renal function closely. Awaiting GPC identification and susceptibilities. Repeat blood cultures. Maintain aspiration precautions. We will continue to follow along. Thank you, Dr. oMntalvo, for asking us to participate in this patient's care. Should you have further questions or concerns, please call. JAMI CARDOSO MD DR: SARAI/sayra JOB#: [id number] / [id number] MIKAELA
[2019-05-17 15:21] VITALS: BP 145/86
[2019-05-17 16:38] LABS: BILIRUBIN,URINE SMALL (NEG); CLARITY,URINE CLEAR; COLOR,URINE AMBER; NITRITE,URINE NEGATIVE (NEG); PH,URINE 5.5; PROTEIN,URINE NEGATIVE (NEG-TRACE); UROBILINOGEN,URINE 0.2 mg/dL (0.2 mg/dL)
[2019-05-17 17:00] LABS: HYALINE CASTS, URINE MODERATE /HPF; SQUAMOUS EPITHELIAL CELL,UR MOD /LPF
[2019-05-17 17:01] LABS: AMORPHOUS SEDIMENT,UR PRESENT /HPF; BACTERIA,URINE 0 /HPF (0-FEW); RBC,URINE 0 /HPF (0-2); WBC,URINE OCC /HPF (0-4)
[2019-05-17 19:58] VITALS: BP 165/84
[2019-05-17] MEDS: LACTOBACILLUS RHAMNOSUS GG 1 CAPSULE. PO SCH (20:54)
[2019-05-17] MEDS: VANCOMYCIN 750 MG in IV NORMAL SALINE 250ML 250 ML IV SCH (20:54)
[2019-05-18] MEDS: PIPERACILLIN/TAZOBACTAM 3.375 GM in IV NORMAL SALINE 50ML 50 ML IV SCH ×5 (01:00→23:33)
[2019-05-18 03:45] VITALS: BP 150/70
[2019-05-18 07:48] VITALS: BP 155/79
[2019-05-18] MEDS: ALBUTEROL SULFATE 2.5 MG/3 ML NEBU. NEB SCH ×4 (08:11→19:47)
--- NOTE | 2019-05-18 08:49 | PDOC ---
Infectious Disease Note Subjective Subjective Confused No fevers last 24 hours O2 3L Vital Sign Vital Signs Vital Signs Date Time Temp Pulse Resp B/P (MAP) Pulse Ox O2 Delivery O2 Flow Rate FiO2 05/18/19 08:12 97 Nasal Cannula 3.0 05/18/19 07:48 97.4 104 18 155/79 (104) 97.4 Physical Exam PHYSICAL EXAM GENERAL: Lying down, calm and coop HEENT: Pupils equally round. Normal conjunctivae. Oropharynx pink, dry. NECK: Supple. LUNGS: Clear to auscultation. CARDIAC: S1, S2. ABDOMEN: Soft, nontender with bowel sounds present. : Sánchez EXTREMITIES: No gross edema or cyanosis. SKIN: Warm to touch. No signs of rash. NEUROLOGIC: Alert and confused PIV Labs Lab Laboratory Tests Test 05/17/19 13:10 05/17/19 15:46 Potassium Level 3.2 mmol/L (3.5-5.1) Urine Collection Type Unknown Urine Color Ly Urine Clarity Clear Urine pH 5.5 Urine Specific Gay 1.020 Urine Protein Negative mg/dL (NEG-TRACE) Urine Glucose (UA) Negative mg/dL (NEG) Urine Ketones (Stick) Negative mg/dL (NEG) Urine Blood Negative (NEG) Urine Nitrite Negative (NEG) Urine Bilirubin Small (NEG) Urine Urobilinogen Dipstick 0.2 mg/dL (0.2 mg/dL) Urine Leukocyte Esterase Negative (NEG) Urine RBC 0 /HPF (0-2) Urine WBC Occ /HPF (0-4) Urine Squamous Epithelial Cells Mod /LPF Urine Amorphous Sediment Present /HPF Urine Bacteria 0 /HPF (0-FEW) Urine Hyaline Casts Moderate /HPF Urine Mucus Marked /LPF Micro 05/15. BLOOD CULTURE Final GRAM POSITIVE COCCI IN CLUSTERS, SUGGESTIVE OF STAPH, IN 2 OF 2 BOTTLES, ONE SET DRAWN. Objective Assessment GPC bacteremia from 05/15. Pneumonia Pulmonary nodules Leukocytosis BUTCH - improved Generalized weakness Encephalopathy Plan Plan of Care continue vanc, Zosyn and doxy Monitor renal function closely Labs in am f/u cultures Maintain aspiration precautions Supportive care Patient seen and examined. Chart reviewed in detail. Case discussed with COMMUNICATIONS SUPERINTENDENT. Agree with above plan. DAVON WONG APRN May 18, 2019 08:49 JAMI CARDOSO MD May 18, 2019 21:34
[2019-05-18] MEDS: DOXYCYCLINE HYCLATE 100 MG TABLET PO SCH ×2 (09:37→20:59)
[2019-05-18] MEDS: LACTOBACILLUS RHAMNOSUS GG 1 CAPSULE. PO SCH ×2 (09:37→20:59)
[2019-05-18 11:26] VITALS: BP 149/83
--- NOTE | 2019-05-18 14:02 | PDOC ---
PULMONARY PROGRESS NOTES Subjective NO COMPLAINS NO DISTRESS Vitals Vital Signs Date Time Temp Pulse Resp B/P (MAP) Pulse Ox O2 Delivery O2 Flow Rate FiO2 05/18/19 11:40 99 Nasal Cannula 2.0 05/18/19 11:26 98.0 105 18 149/83 (105) 98.0 ROS: No Nausea, No Chest Pain, No Abdominal Pain, No Increase Cough General: Alert HEENT: Other (NO JVD) Lungs: Clear Cardiovascular: S1, S2 Abdomen: Soft Neuro Exam: Alert Extremities: No Edema Skin: Warm Labs Laboratory Tests Test 05/17/19 03:45 05/17/19 13:10 05/17/19 15:46 Sodium Level 137 mmol/L (136-145) Potassium Level 2.8 mmol/L (3.5-5.1) 3.2 mmol/L (3.5-5.1) Chloride Level 101 mmol/L (98-107) Carbon Dioxide Level 26 mmol/L (21-32) Anion Gap 10 (6-14) Blood Urea Nitrogen 22 mg/dL (7-20) Creatinine 1.2 mg/dL (0.6-1.0) Estimated GFR (Cockcroft-Gault) 43.8 Glucose Level 86 mg/dL (70-99) Calcium Level 7.9 mg/dL (8.5-10.1) Urine Collection Type Unknown Urine Color Ly Urine Clarity Clear Urine pH 5.5 Urine Specific [place] 1.020 Urine Protein Negative mg/dL (NEG-TRACE) Urine Glucose (UA) Negative mg/dL (NEG) Urine Ketones (Stick) Negative mg/dL (NEG) Urine Blood Negative (NEG) Urine Nitrite Negative (NEG) Urine Bilirubin Small (NEG) Urine Urobilinogen Dipstick 0.2 mg/dL (0.2 mg/dL) Urine Leukocyte Esterase Negative (NEG) Urine RBC 0 /HPF (0-2) Urine WBC Occ /HPF (0-4) Urine Squamous Epithelial Cells Mod /LPF Urine Amorphous Sediment Present /HPF Urine Bacteria 0 /HPF (0-FEW) Urine Hyaline Casts Moderate /HPF Urine Mucus Marked /LPF Laboratory Tests Test 05/17/19 15:46 Urine Collection Type Unknown Urine Color Ly Urine Clarity Clear Urine pH 5.5 Urine Specific [place] 1.020 Urine Protein Negative mg/dL (NEG-TRACE) Urine Glucose (UA) Negative mg/dL (NEG) Urine Ketones (Stick) Negative mg/dL (NEG) Urine Blood Negative (NEG) Urine Nitrite Negative (NEG) Urine Bilirubin Small (NEG) Urine Urobilinogen Dipstick 0.2 mg/dL (0.2 mg/dL) Urine Leukocyte Esterase Negative (NEG) Urine RBC 0 /HPF (0-2) Urine WBC Occ /HPF (0-4) Urine Squamous Epithelial Cells Mod /LPF Urine Amorphous Sediment Present /HPF Urine Bacteria 0 /HPF (0-FEW) Urine Hyaline Casts Moderate /HPF Urine Mucus Marked /LPF Impression . IMPRESSION: 1. Abnormal x-ray compatible with pneumonia. 2. Pneumonia, suspect gram-negative. 3. Underlying dementia. 4. Toxic encephalopathy, present upon admission secondary to pneumonia. 5. Leukocytosis. 6. Renal insufficiency. Plan . BETTER TODAY WILL CONTINUE THE SAME ANTIBX 02 UP TO CHAIR BO BREWER MD May 18, 2019 14:02
--- NOTE | 2019-05-18 14:58 | PDOC ---
[employer] PROGRESS NOTE Chief Complaint Chief Complaint Pneumonia Dementia History of Present Illness History of Present Illness 05/18/19 Pt seen/examined at bedside with MIGEL Per RN patient was disruptive last night and was put on sedatives Chart Reviewed 05/17/19 Pt seen and examined at bedside Pt laying in bed with MIGEL QUACH RN who says pt's daughter has expressed difficulty in caring for pt and believes LTC is in the pt's best interest Vitals/I&O Vitals/I&O: Vital Signs Date Time Temp Pulse Resp B/P (MAP) Pulse Ox O2 Delivery O2 Flow Rate FiO2 05/18/19 11:40 99 Nasal Cannula 2.0 05/18/19 11:26 98.0 105 18 149/83 (105) 98.0 I & O 05/17/19 05/17/19 05/18/19 14:59 22:59 06:59 Intake Total 0 ml 70 ml 0 ml Output Total 780 ml 250 ml Balance 0 ml -710 ml -250 ml Physical Exam Physical Exam: GENERAL: Lying down, calm and coop HEENT: Pupils equally round. Normal conjunctivae. Oropharynx pink, dry. NECK: Supple. LUNGS: Clear to auscultation. CARDIAC: S1, S2. ABDOMEN: Soft, nontender with bowel sounds present. : Sánchez EXTREMITIES: No gross edema or cyanosis. SKIN: Warm to touch. No signs of rash. NEUROLOGIC: Alert and confused PIV General: Alert, Cooperative, No acute distress Heart: Regular rate (SR), Other (distant heart sounds) Lungs: Clear Abdomen: Soft, No tenderness Extremities: No clubbing, No cyanosis, No edema Skin: No rashes, No breakdown, No significant lesion Labs Labs: Laboratory Tests Test 05/17/19 15:46 Urine Collection Type Unknown Urine Color Ly Urine Clarity Clear Urine pH 5.5 Urine Specific [place] 1.020 Urine Protein Negative mg/dL (NEG-TRACE) Urine Glucose (UA) Negative mg/dL (NEG) Urine Ketones (Stick) Negative mg/dL (NEG) Urine Blood Negative (NEG) Urine Nitrite Negative (NEG) Urine Bilirubin Small (NEG) Urine Urobilinogen Dipstick 0.2 mg/dL (0.2 mg/dL) Urine Leukocyte Esterase Negative (NEG) Urine RBC 0 /HPF (0-2) Urine WBC Occ /HPF (0-4) Urine Squamous Epithelial Cells Mod /LPF Urine Amorphous Sediment Present /HPF Urine Bacteria 0 /HPF (0-FEW) Urine Hyaline Casts Moderate /HPF Urine Mucus Marked /LPF Review of Systems Review of Systems: co weakness no co chest pain Assessment and Plan Assessmemt and Plan Problems Medical Problems: (1) Elevated troponin Status: Acute (2) Left lower lobe pneumonia Status: Acute Assessment: Pneumonia Dementia Plan Cardiac monitoring IV ABX Sánchez to bsd PRN sedation Duonebs PRN 02 DVT prophylaxis Appreciate cardio input 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 Medications: Current Medications Medications (Trade) Dose Ordered Sig/Maria Esther Route PRN Reason Start Time Stop Time Status Last Admin Dose Admin Vancomycin HCl 750 mg/Sodium Chloride 250 ml @ 250 mls/hr Q24H IV 05/17/19 18:00 05/17/19 20:54 Lactobacillus Rhamnosus (Culturelle) 1 cap BID PO 05/17/19 21:00 05/18/19 09:37 Lorazepam (Ativan Inj) 2 mg PRN Q6HRS PRN IV ANXIETY / AGITATION 05/17/19 18:30 05/17/19 18:54 JUDY UNDERWOOD III DO May 18, 2019 14:58
[2019-05-18 15:40] VITALS: BP 143/83
[2019-05-18] MEDS: VANCOMYCIN PER PHARMACY MC PRN (16:23)
[2019-05-18] MEDS: VANCOMYCIN 750 MG in IV NORMAL SALINE 250ML 250 ML IV SCH (17:40)
[2019-05-18 19:50] VITALS: BP 164/89
[2019-05-18 21:15] LABS: CREATININE 1.4 mg/dL (0.6-1.0); GFR 36.7
[2019-05-18 21:21] LABS: VANC TR 27.7 mcg/mL (10.0-20.0)
[2019-05-18 23:19] VITALS: BP 153/84
[2019-05-19] MEDS: VANCOMYCIN PER PHARMACY MC PRN ×2 (01:12→11:20)
--- NOTE | 2019-05-19 01:13 | NUR ---
Pharmacy Vancomycin Dosing Note S:Consulted to monitor and dose vancomycin started 05/16/19. O:THA CH is a 73 year old F with Bacteremia Pneumonia . Height: 5 feet, 0 inches Weight: 57.690629 kg [place] Body Weight: 45.50 Adjusted Body Weight: 50.38 Dosing Weight: Actual Other Antibiotics: CTX 05/16 - Dc'd changed to zosyn DOXY 05/16 - LABS: Last BUN: 22 Last Creatinine: 1.2 Creatinine Clearance: 30 mL/min Last WBC: 11.7 Last Procalcitonin: - Tmax (past 24 hours): 98 Microbiology: 05/15 [facility] CLUSTERS - preliminary growing coagulase negative staph I/O: Drug Levels: Last level: on at Last dose given 05/16/19 at 1744 Vancomycin Dosing: Loading Dose: 1250 mg x1 Dosing Weight: Actual Target Trough: 15-20 A: Based on: FALSE LEVEL, RN HUNG DOSE 3 HOURS EARLY SO TROUGH VALUE INVALID, WILL DRAW LEVEL IN 24 HOURS P: 1. Continue Vancomycin 750 mg IV q24h 2. Follow up Trough level on 05/19/19 at 1730 3. Pharmacy will continue to monitor, follow and adjust therapy as needed. MANDI CASTILLO RPH, 05/19/19 0113 Signed: 05/19/19 at 0114 by MANDI CASTILLO RPH PHA
[2019-05-19 03:20] VITALS: BP 134/109
[2019-05-19 05:07] LABS: BASO % 0 % (0-3); EOS # 0.1 x10^3/uL (0.0-0.7); EOS % 1 % (0-3); HEMATOCRIT 35.4 % (36.0-47.0); HEMOGLOBIN 11.8 g/dL (12.0-15.5); LYMPH # 1.4 x10^3/uL (1.0-4.8); LYMPH % 13 % (24-48); MEAN CORPUSCULAR HEMOGLOBIN 31 pg (25-35); MEAN CORPUSCULAR HGB CONC 33 g/dL (31-37); MEAN CORPUSCULAR VOLUME 94 fL (79-100); MONO # 0.7 x10^3/uL (0.0-1.1); MONO % 6 % (0-9); NEUT # 8.7 x10^3/uL (1.8-7.7); NEUT % 81 % (31-73); PLATELET COUNT 170 x10^3/uL (140-400); RED BLOOD COUNT 3.78 x10^6/uL (3.50-5.40); RED CELL DISTRIBUTION WIDTH 14.9 % (11.5-14.5); WHITE BLOOD COUNT 10.7 x10^3/uL (4.0-11.0)
[2019-05-19 05:24] LABS: CREATININE 1.2 mg/dL (0.6-1.0); GFR 43.8; POTASSIUM 3.3 mmol/L (3.5-5.1)
[2019-05-19] MEDS: PIPERACILLIN/TAZOBACTAM 3.375 GM in IV NORMAL SALINE 50ML 50 ML IV SCH ×3 (05:31→18:14)
[2019-05-19] MEDS: ALBUTEROL SULFATE 2.5 MG/3 ML NEBU. NEB SCH ×4 (07:11→19:19)
[2019-05-19 07:51] VITALS: BP 149/68
[2019-05-19] MEDS: DOXYCYCLINE HYCLATE 100 MG TABLET PO SCH ×2 (08:52→21:00)
[2019-05-19] MEDS: LACTOBACILLUS RHAMNOSUS GG 1 CAPSULE. PO SCH ×2 (08:53→21:00)
[2019-05-19 10:55] VITALS: BP 165/89
--- NOTE | 2019-05-19 11:20 | PDOC ---
Infectious Disease Note Subjective Subjective says feeling ok, weak ROS ROS no n/v/d/sob Vital Sign Vital Signs Vital Signs Date Time Temp Pulse Resp B/P (MAP) Pulse Ox O2 Delivery O2 Flow Rate FiO2 05/19/19 10:59 Room Air 05/19/19 10:55 98.1 114 16 165/89 (114) 98 98.1 05/18/19 23:19 3.0 Physical Exam PHYSICAL EXAM GENERAL: Lying down, calm and coop HEENT: Pupils equally round. Normal conjunctivae. Oropharynx pink, dry. NECK: Supple. LUNGS: Clear to auscultation. CARDIAC: S1, S2. ABDOMEN: Soft, nontender with bowel sounds present. : Sánchez EXTREMITIES: No gross edema or cyanosis. SKIN: Warm to touch. No signs of rash. NEUROLOGIC: Alert and confused PIV Labs Lab Laboratory Tests Test 05/18/19 20:45 05/19/19 04:03 Creatinine 1.4 mg/dL (0.6-1.0) 1.2 mg/dL (0.6-1.0) Estimated GFR (Cockcroft-Gault) 36.7 43.8 Vancomycin Level Trough 27.7 mcg/mL (10.0-20.0) Vancomycin Last Dose Date 05/17/19 Vancomycin Last Dose Time 2053 White Blood Count 10.7 x10^3/uL (4.0-11.0) Red Blood Count 3.78 x10^6/uL (3.50-5.40) Hemoglobin 11.8 g/dL (12.0-15.5) Hematocrit 35.4 % (36.0-47.0) Mean Corpuscular Volume 94 fL (79-100) Mean Corpuscular Hemoglobin 31 pg (25-35) Mean Corpuscular Hemoglobin Concent 33 g/dL (31-37) Red Cell Distribution Width 14.9 % (11.5-14.5) Platelet Count 170 x10^3/uL (140-400) Neutrophils (%) (Auto) 81 % (31-73) Lymphocytes (%) (Auto) 13 % (24-48) Monocytes (%) (Auto) 6 % (0-9) Eosinophils (%) (Auto) 1 % (0-3) Basophils (%) (Auto) 0 % (0-3) Neutrophils # (Auto) 8.7 x10^3/uL (1.8-7.7) Lymphocytes # (Auto) 1.4 x10^3/uL (1.0-4.8) Monocytes # (Auto) 0.7 x10^3/uL (0.0-1.1) Eosinophils # (Auto) 0.1 x10^3/uL (0.0-0.7) Basophils # (Auto) 0.0 x10^3/uL (0.0-0.2) Sodium Level 139 mmol/L (136-145) Potassium Level 3.3 mmol/L (3.5-5.1) Chloride Level 102 mmol/L (98-107) Carbon Dioxide Level 25 mmol/L (21-32) Anion Gap 12 (6-14) Blood Urea Nitrogen 17 mg/dL (7-20) Glucose Level 58 mg/dL (70-99) Calcium Level 8.0 mg/dL (8.5-10.1) Micro Microbiology 05/17/19 Blood Culture - Preliminary, Resulted NO GROWTH AFTER 1 DAY Objective Assessment GPC bacteremia from 05/15. coag neg staph,, likely contaminant Pneumonia Pulmonary nodules Leukocytosis BUTCH - improved Generalized weakness Encephalopathy Plan Plan of Care continue Zosyn and doxy,, d/c vanc Monitor renal function closely Labs in am f/u cultures Maintain aspiration precautions Supportive care RISA ALMONTE MD May 19, 2019 11:20
--- NOTE | 2019-05-19 11:25 | PDOC ---
PULMONARY PROGRESS NOTES Subjective NO COMPLAINS NO DISTRESS Vitals Vital Signs Date Time Temp Pulse Resp B/P (MAP) Pulse Ox O2 Delivery O2 Flow Rate FiO2 05/19/19 10:59 Room Air 05/19/19 10:55 98.1 114 16 165/89 (114) 98 98.1 05/18/19 23:19 3.0 ROS: No Nausea, No Chest Pain, No Abdominal Pain, No Increase Cough General: Alert HEENT: Other (NO JVD) Lungs: Clear Cardiovascular: S1, S2 Abdomen: Soft Neuro Exam: Alert Extremities: No Edema Skin: Warm Labs Laboratory Tests Test 05/17/19 13:10 05/17/19 15:46 05/18/19 20:45 05/19/19 04:03 Potassium Level 3.2 mmol/L (3.5-5.1) 3.3 mmol/L (3.5-5.1) Urine Collection Type Unknown Urine Color Ly Urine Clarity Clear Urine pH 5.5 Urine Specific [place] 1.020 Urine Protein Negative mg/dL (NEG-TRACE) Urine Glucose (UA) Negative mg/dL (NEG) Urine Ketones (Stick) Negative mg/dL (NEG) Urine Blood Negative (NEG) Urine Nitrite Negative (NEG) Urine Bilirubin Small (NEG) Urine Urobilinogen Dipstick 0.2 mg/dL (0.2 mg/dL) Urine Leukocyte Esterase Negative (NEG) Urine RBC 0 /HPF (0-2) Urine WBC Occ /HPF (0-4) Urine Squamous Epithelial Cells Mod /LPF Urine Amorphous Sediment Present /HPF Urine Bacteria 0 /HPF (0-FEW) Urine Hyaline Casts Moderate /HPF Urine Mucus Marked /LPF Creatinine 1.4 mg/dL (0.6-1.0) 1.2 mg/dL (0.6-1.0) Estimated GFR (Cockcroft-Gault) 36.7 43.8 Vancomycin Level Trough 27.7 mcg/mL (10.0-20.0) Vancomycin Last Dose Date 05/17/19 Vancomycin Last Dose Time 2053 White Blood Count 10.7 x10^3/uL (4.0-11.0) Red Blood Count 3.78 x10^6/uL (3.50-5.40) Hemoglobin 11.8 g/dL (12.0-15.5) Hematocrit 35.4 % (36.0-47.0) Mean Corpuscular Volume 94 fL (79-100) Mean Corpuscular Hemoglobin 31 pg (25-35) Mean Corpuscular Hemoglobin Concent 33 g/dL (31-37) Red Cell Distribution Width 14.9 % (11.5-14.5) Platelet Count 170 x10^3/uL (140-400) Neutrophils (%) (Auto) 81 % (31-73) Lymphocytes (%) (Auto) 13 % (24-48) Monocytes (%) (Auto) 6 % (0-9) Eosinophils (%) (Auto) 1 % (0-3) Basophils (%) (Auto) 0 % (0-3) Neutrophils # (Auto) 8.7 x10^3/uL (1.8-7.7) Lymphocytes # (Auto) 1.4 x10^3/uL (1.0-4.8) Monocytes # (Auto) 0.7 x10^3/uL (0.0-1.1) Eosinophils # (Auto) 0.1 x10^3/uL (0.0-0.7) Basophils # (Auto) 0.0 x10^3/uL (0.0-0.2) Sodium Level 139 mmol/L (136-145) Chloride Level 102 mmol/L (98-107) Carbon Dioxide Level 25 mmol/L (21-32) Anion Gap 12 (6-14) Blood Urea Nitrogen 17 mg/dL (7-20) Glucose Level 58 mg/dL (70-99) Calcium Level 8.0 mg/dL (8.5-10.1) Laboratory Tests Test 05/18/19 20:45 05/19/19 04:03 Creatinine 1.4 mg/dL (0.6-1.0) 1.2 mg/dL (0.6-1.0) Estimated GFR (Cockcroft-Gault) 36.7 43.8 Vancomycin Level Trough 27.7 mcg/mL (10.0-20.0) Vancomycin Last Dose Date 05/17/19 Vancomycin Last Dose Time 2053 White Blood Count 10.7 x10^3/uL (4.0-11.0) Red Blood Count 3.78 x10^6/uL (3.50-5.40) Hemoglobin 11.8 g/dL (12.0-15.5) Hematocrit 35.4 % (36.0-47.0) Mean Corpuscular Volume 94 fL (79-100) Mean Corpuscular Hemoglobin 31 pg (25-35) Mean Corpuscular Hemoglobin Concent 33 g/dL (31-37) Red Cell Distribution Width 14.9 % (11.5-14.5) Platelet Count 170 x10^3/uL (140-400) Neutrophils (%) (Auto) 81 % (31-73) Lymphocytes (%) (Auto) 13 % (24-48) Monocytes (%) (Auto) 6 % (0-9) Eosinophils (%) (Auto) 1 % (0-3) Basophils (%) (Auto) 0 % (0-3) Neutrophils # (Auto) 8.7 x10^3/uL (1.8-7.7) Lymphocytes # (Auto) 1.4 x10^3/uL (1.0-4.8) Monocytes # (Auto) 0.7 x10^3/uL (0.0-1.1) Eosinophils # (Auto) 0.1 x10^3/uL (0.0-0.7) Basophils # (Auto) 0.0 x10^3/uL (0.0-0.2) Sodium Level 139 mmol/L (136-145) Potassium Level 3.3 mmol/L (3.5-5.1) Chloride Level 102 mmol/L (98-107) Carbon Dioxide Level 25 mmol/L (21-32) Anion Gap 12 (6-14) Blood Urea Nitrogen 17 mg/dL (7-20) Glucose Level 58 mg/dL (70-99) Calcium Level 8.0 mg/dL (8.5-10.1) Impression . IMPRESSION: 1. Abnormal x-ray compatible with pneumonia. 2. Pneumonia, suspect gram-negative. 3. Underlying dementia. 4. Toxic encephalopathy, present upon admission secondary to pneumonia. 5. Leukocytosis. 6. Renal insufficiency. 7. BACTEREMIA Plan . RESP STATUS IS COMPENSATED ANTIBX PER ID 02 UP TO CHAIR BO BREWER MD May 19, 2019 11:25
--- NOTE | 2019-05-19 11:53 | PDOC ---
[employer] PROGRESS NOTE Chief Complaint Chief Complaint Pneumonia Dementia Elevated Troponin History of Present Illness History of Present Illness 05/19/19 Pt seen/examined at bedside Pt resting in NAD PHILOMENA RN Chart reviewed 05/18/19 Pt seen/examined at bedside with MIGEL Kaur RN patient was disruptive last night and was put on sedatives Chart Reviewed 05/17/19 Pt seen and examined at bedside Pt laying in bed with NAD PHILOMENA RN who says pt's daughter has expressed difficulty in caring for pt and believes LTC is in the pt's best interest Vitals/I&O Vitals/I&O: Vital Signs Date Time Temp Pulse Resp B/P (MAP) Pulse Ox O2 Delivery O2 Flow Rate FiO2 05/19/19 10:59 Room Air 05/19/19 10:55 98.1 114 16 165/89 (114) 98 98.1 05/18/19 23:19 3.0 I & O 05/18/19 05/18/19 05/19/19 15:00 23:00 07:00 Intake Total 5 ml 0 ml 0 ml Output Total 300 ml 650 ml Balance 5 ml -300 ml -650 ml Physical Exam Physical Exam: GENERAL: Lying down, calm and coop HEENT: Pupils equally round. Normal conjunctivae. Oropharynx pink, dry. NECK: Supple. LUNGS: Clear to auscultation. CARDIAC: S1, S2. ABDOMEN: Soft, nontender with bowel sounds present. : Sánchez EXTREMITIES: No gross edema or cyanosis. SKIN: Warm to touch. No signs of rash. NEUROLOGIC: Alert and confused PIV General: Alert, Cooperative, No acute distress Heart: Regular rate (SR), Normal S1, Normal S2, Other (distant heart sounds) Lungs: Other Abdomen: Normal bowel sounds, Soft, No tenderness Extremities: No clubbing, No cyanosis, No edema Skin: No rashes, No breakdown, No significant lesion Labs Labs: Laboratory Tests Test 05/18/19 20:45 05/19/19 04:03 Creatinine 1.4 mg/dL (0.6-1.0) 1.2 mg/dL (0.6-1.0) Estimated GFR (Cockcroft-Gault) 36.7 43.8 Vancomycin Level Trough 27.7 mcg/mL (10.0-20.0) Vancomycin Last Dose Date 05/17/19 Vancomycin Last Dose Time 2053 White Blood Count 10.7 x10^3/uL (4.0-11.0) Red Blood Count 3.78 x10^6/uL (3.50-5.40) Hemoglobin 11.8 g/dL (12.0-15.5) Hematocrit 35.4 % (36.0-47.0) Mean Corpuscular Volume 94 fL (79-100) Mean Corpuscular Hemoglobin 31 pg (25-35) Mean Corpuscular Hemoglobin Concent 33 g/dL (31-37) Red Cell Distribution Width 14.9 % (11.5-14.5) Platelet Count 170 x10^3/uL (140-400) Neutrophils (%) (Auto) 81 % (31-73) Lymphocytes (%) (Auto) 13 % (24-48) Monocytes (%) (Auto) 6 % (0-9) Eosinophils (%) (Auto) 1 % (0-3) Basophils (%) (Auto) 0 % (0-3) Neutrophils # (Auto) 8.7 x10^3/uL (1.8-7.7) Lymphocytes # (Auto) 1.4 x10^3/uL (1.0-4.8) Monocytes # (Auto) 0.7 x10^3/uL (0.0-1.1) Eosinophils # (Auto) 0.1 x10^3/uL (0.0-0.7) Basophils # (Auto) 0.0 x10^3/uL (0.0-0.2) Sodium Level 139 mmol/L (136-145) Potassium Level 3.3 mmol/L (3.5-5.1) Chloride Level 102 mmol/L (98-107) Carbon Dioxide Level 25 mmol/L (21-32) Anion Gap 12 (6-14) Blood Urea Nitrogen 17 mg/dL (7-20) Glucose Level 58 mg/dL (70-99) Calcium Level 8.0 mg/dL (8.5-10.1) Review of Systems Review of Systems: No co changes in vision No co headache Assessment and Plan Assessmemt and Plan Problems Medical Problems: (1) Elevated troponin Status: Acute (2) Left lower lobe pneumonia Status: Acute Assessment: Pneumonia Dementia Elevated Troponin Plan Discharge disposition pending; discharge to LTC? Cardiac monitoring IV ABX Sánchez to bsd PRN sedation Duonebs PRN O2 DVT prophylaxis Appreciate cardio input Comment Review of Relevant I have reviewed the following items anuel (where applicable) has been applied. Medications: Current Medications Medications (Trade) Dose Ordered Sig/Maria Esther Route PRN Reason Start Time Stop Time Status Last Admin Dose Admin Vancomycin HCl (Vancomycin Trough Level) 1 each 1X ONCE 05/18/19 20:30 05/19/19 11:20 DC 05/18/19 21:04 JUDY UNDERWOOD III DO May 19, 2019 11:53
[2019-05-19 15:20] VITALS: BP 156/83
[2019-05-19] MEDS: AMINO AC 3%/ELECTROLYTE/GLYCER 1,000 ML IV SCH (17:22)
--- NOTE | 2019-05-19 17:46 | NUR ---
This RN spoke with patients daughter and daughter wishes for patient to go to [facility] in [place] upon discharge. She feels she cannot take care of patient at home.
[2019-05-19] MEDS ORDERED: VANCOMYCIN 750 MG in IV NORMAL SALINE 250ML 250 ML IV SCH (18:00)
[2019-05-19 19:35] VITALS: BP 146/96
[2019-05-19] MEDS: ONDANSETRON PF 4 MG/2 ML VIAL. IV PRN (22:35)
[2019-05-19 23:48] VITALS: BP 156/98
[2019-05-20] MEDS: PIPERACILLIN/TAZOBACTAM 3.375 GM in IV NORMAL SALINE 50ML 50 ML IV SCH ×4 (00:29→17:46)
[2019-05-20 03:25] VITALS: BP 113/85
[2019-05-20 04:31] LABS: BASO % 0 % (0-3); EOS % 0 % (0-3); HEMATOCRIT 38.3 % (36.0-47.0); HEMOGLOBIN 12.5 g/dL (12.0-15.5); LYMPH % 6 % (24-48); MEAN CORPUSCULAR HEMOGLOBIN 30 pg (25-35); MEAN CORPUSCULAR HGB CONC 33 g/dL (31-37); MEAN CORPUSCULAR VOLUME 93 fL (79-100); MONO # 0.6 x10^3/uL (0.0-1.1); MONO % 3 % (0-9); NEUT % 91 % (31-73); PLATELET COUNT 225 x10^3/uL (140-400); RED BLOOD COUNT 4.15 x10^6/uL (3.50-5.40); RED CELL DISTRIBUTION WIDTH 15.3 % (11.5-14.5); WHITE BLOOD COUNT 16.5 x10^3/uL (4.0-11.0)
[2019-05-20 05:24] LABS: CALCIUM 8.4 mg/dL (8.5-10.1); CREATININE 1.3 mg/dL (0.6-1.0); GFR 39.9; POTASSIUM 3.5 mmol/L (3.5-5.1)
[2019-05-20 06:30] LABS: % LYMPHS 7 % (24-48); % MONOS 1 % (0-10); % SEGS 92 % (35-66); PLT ESTIMATE ADEQUATE (ADEQUATE)
[2019-05-20] MEDS: AMINO AC 3%/ELECTROLYTE/GLYCER 1,000 ML IV SCH ×2 (06:33→20:39)
[2019-05-20] MEDS: ALBUTEROL SULFATE 2.5 MG/3 ML NEBU. NEB SCH ×4 (07:36→20:00)
[2019-05-20 07:44] VITALS: BP 157/79
[2019-05-20] MEDS: ONDANSETRON PF 4 MG/2 ML VIAL. IV PRN ×2 (08:27→16:40)
[2019-05-20] MEDS: DOXYCYCLINE HYCLATE 100 MG TABLET PO SCH ×2 (08:27→20:38)
[2019-05-20] MEDS: LACTOBACILLUS RHAMNOSUS GG 1 CAPSULE. PO SCH ×2 (08:27→20:38)
--- NOTE | 2019-05-20 08:39 | RAD ---
PQRS Compliance Statement: One or more of the following individualized dose reduction techniques were utilized for this examination: 1. Automated exposure control 2. Adjustment of the mA and/or kV according to patient size 3. Use of iterative reconstruction technique CT head without contrast 05/20/2019 7:57 AM INDICATION: Multiple falls. COMPARISON: None available TECHNIQUE: Multiple axial CT images of the head were obtained from skull base through the vertex without intravenous contrast. FINDINGS: Head: Ventricles, sulci and basal cisterns are prominent compatible with moderate generalized cerebral volume loss. Low-attenuation in the periventricular white matter is suggestive of chronic small vessel ischemic changes. There is no hydrocephalus. Reed-white matter differentiation is normal. There is no acute intracranial hemorrhage. There is no mass, mass effect or midline shift. Posterior fossa is normal in appearance. Visualized portions of the orbits are normal. Moderate mucosal thickening of the left maxillary sinus with air-fluid level. Sinus contents appear high in attenuation although no definite fracture is visualized. Mastoid air cells are well aerated. There are 2 calvarial lesions with well-defined margins. There is a left frontal calvarial lesion which erodes the outer cortex measuring 1.3 cm (series 2, image 24). This finding is indeterminate. IMPRESSION: No acute intracranial hemorrhage. Moderate generalized cerebral volume loss. Low-attenuation in the periventricular white matter is suggestive of chronic small vessel ischemic changes. Moderate mucosal thickening of the left maxillary sinus with air-fluid level. There is hypoattenuation which may represent inspissated mucus versus fungal colonization versus blood products. Correlate with any tenderness of the maxillary sinus to assess for occult fracture. Indeterminate calvarial lesions, the larger of which is identified in the left frontal calvaria eroding the outer cortex. Correlate with any underlying history of malignancy (i.e. multiple myeloma). Findings are nonspecific and short-term follow-up may be of benefit. Electronically signed by: Katharine Sauceda MD (05/20/2019 8:36 AM) [facility]
--- NOTE | 2019-05-20 09:33 | PDOC ---
PULMONARY PROGRESS NOTES Subjective NO COMPLAINS NO DISTRESS Vitals Vital Signs Date Time Temp Pulse Resp B/P (MAP) Pulse Ox O2 Delivery O2 Flow Rate FiO2 05/20/19 07:44 98.4 98 18 157/79 (105) 93 Room Air 98.4 05/19/19 20:00 3.0 ROS: No Nausea, No Chest Pain, No Abdominal Pain, No Increase Cough HEENT: Other (NO JVD) Lungs: Clear Cardiovascular: S1, S2 Abdomen: Soft Neuro Exam: Alert Extremities: No Edema Skin: Warm Labs Laboratory Tests Test 05/18/19 20:45 05/19/19 04:03 05/20/19 03:50 05/20/19 03:55 Creatinine 1.4 mg/dL (0.6-1.0) 1.2 mg/dL (0.6-1.0) 1.3 mg/dL (0.6-1.0) Estimated GFR (Cockcroft-Gault) 36.7 43.8 39.9 Vancomycin Level Trough 27.7 mcg/mL (10.0-20.0) Vancomycin Last Dose Date 05/17/19 Vancomycin Last Dose Time 2053 White Blood Count 10.7 x10^3/uL (4.0-11.0) 16.5 x10^3/uL (4.0-11.0) Red Blood Count 3.78 x10^6/uL (3.50-5.40) 4.15 x10^6/uL (3.50-5.40) Hemoglobin 11.8 g/dL (12.0-15.5) 12.5 g/dL (12.0-15.5) Hematocrit 35.4 % (36.0-47.0) 38.3 % (36.0-47.0) Mean Corpuscular Volume 94 fL (79-100) 93 fL (79-100) Mean Corpuscular Hemoglobin 31 pg (25-35) 30 pg (25-35) Mean Corpuscular Hemoglobin Concent 33 g/dL (31-37) 33 g/dL (31-37) Red Cell Distribution Width 14.9 % (11.5-14.5) 15.3 % (11.5-14.5) Platelet Count 170 x10^3/uL (140-400) 225 x10^3/uL (140-400) Neutrophils (%) (Auto) 81 % (31-73) 91 % (31-73) Lymphocytes (%) (Auto) 13 % (24-48) 6 % (24-48) Monocytes (%) (Auto) 6 % (0-9) 3 % (0-9) Eosinophils (%) (Auto) 1 % (0-3) 0 % (0-3) Basophils (%) (Auto) 0 % (0-3) 0 % (0-3) Neutrophils # (Auto) 8.7 x10^3/uL (1.8-7.7) 15.0 x10^3/uL (1.8-7.7) Lymphocytes # (Auto) 1.4 x10^3/uL (1.0-4.8) 1.0 x10^3/uL (1.0-4.8) Monocytes # (Auto) 0.7 x10^3/uL (0.0-1.1) 0.6 x10^3/uL (0.0-1.1) Eosinophils # (Auto) 0.1 x10^3/uL (0.0-0.7) 0.0 x10^3/uL (0.0-0.7) Basophils # (Auto) 0.0 x10^3/uL (0.0-0.2) 0.0 x10^3/uL (0.0-0.2) Sodium Level 139 mmol/L (136-145) 136 mmol/L (136-145) Potassium Level 3.3 mmol/L (3.5-5.1) 3.5 mmol/L (3.5-5.1) Chloride Level 102 mmol/L (98-107) 97 mmol/L (98-107) Carbon Dioxide Level 25 mmol/L (21-32) 25 mmol/L (21-32) Anion Gap 12 (6-14) 14 (6-14) Blood Urea Nitrogen 17 mg/dL (7-20) 24 mg/dL (7-20) Glucose Level 58 mg/dL (70-99) 136 mg/dL (70-99) Calcium Level 8.0 mg/dL (8.5-10.1) 8.4 mg/dL (8.5-10.1) Segmented Neutrophils % 92 % (35-66) Lymphocytes % 7 % (24-48) Monocytes % 1 % (0-10) Platelet Estimate Adequate (ADEQUATE) Laboratory Tests Test 05/20/19 03:50 05/20/19 03:55 White Blood Count 16.5 x10^3/uL (4.0-11.0) Red Blood Count 4.15 x10^6/uL (3.50-5.40) Hemoglobin 12.5 g/dL (12.0-15.5) Hematocrit 38.3 % (36.0-47.0) Mean Corpuscular Volume 93 fL (79-100) Mean Corpuscular Hemoglobin 30 pg (25-35) Mean Corpuscular Hemoglobin Concent 33 g/dL (31-37) Red Cell Distribution Width 15.3 % (11.5-14.5) Platelet Count 225 x10^3/uL (140-400) Neutrophils (%) (Auto) 91 % (31-73) Lymphocytes (%) (Auto) 6 % (24-48) Monocytes (%) (Auto) 3 % (0-9) Eosinophils (%) (Auto) 0 % (0-3) Basophils (%) (Auto) 0 % (0-3) Neutrophils # (Auto) 15.0 x10^3/uL (1.8-7.7) Lymphocytes # (Auto) 1.0 x10^3/uL (1.0-4.8) Monocytes # (Auto) 0.6 x10^3/uL (0.0-1.1) Eosinophils # (Auto) 0.0 x10^3/uL (0.0-0.7) Basophils # (Auto) 0.0 x10^3/uL (0.0-0.2) Segmented Neutrophils % 92 % (35-66) Lymphocytes % 7 % (24-48) Monocytes % 1 % (0-10) Platelet Estimate Adequate (ADEQUATE) Sodium Level 136 mmol/L (136-145) Potassium Level 3.5 mmol/L (3.5-5.1) Chloride Level 97 mmol/L (98-107) Carbon Dioxide Level 25 mmol/L (21-32) Anion Gap 14 (6-14) Blood Urea Nitrogen 24 mg/dL (7-20) Creatinine 1.3 mg/dL (0.6-1.0) Estimated GFR (Cockcroft-Gault) 39.9 Glucose Level 136 mg/dL (70-99) Calcium Level 8.4 mg/dL (8.5-10.1) Comments CT CHEST Right lower lobe bronchitis. Minimal posterior right basilar atelectasis. Bilateral very small pulmonary nodules are present. If the patient has no significant risk factors, then no further follow-up is required. Alternatively, interval follow-up at 12 months should be considered if there are significant risk factors for lung carcinoma. Impression . 1. Abnormal x-ray compatible with pneumonia. 2. Pneumonia, suspect gram-negative. 3. Underlying dementia. 4. Toxic encephalopathy, present upon admission secondary to pneumonia. 5. Leukocytosis. 6. Renal insufficiency. 7. BACTEREMIA/ ( STAPH COAG NEG), likely contaminant Plan . RESP STATUS IS COMPENSATED ANTIBX PER ID MILD INCREASE IN WBC, NO FEVER [address] TO CHAIR CT CHEST WITH TINY 2 MM NODULES, DOES NOT NEED ANY F/U ( LOW RISK FOR MALIGNANCY) KOFI BATES MD May 20, 2019 09:33
--- NOTE | 2019-05-20 10:16 | PDOC ---
[employer] PROGRESS NOTE Chief Complaint Chief Complaint Pneumonia Dementia Elevated Troponin History of Present Illness History of Present Illness 05/20/19 Pt seen/examined at bedside and resting NAD Pt states she does not want a feeding tube in the future PHILOMENA RN who states that Dr. Wade wants to keep patient and re-evaluate tomorrow due to her elevated WBC 16.5 Chart reviewed 05/19/19 Pt seen/examined at bedside Pt resting in NAD PHILOMENA RN Chart reviewed 05/18/19 Pt seen/examined at bedside with NAD Per RN patient was disruptive last night and was put on sedatives Chart Reviewed 05/17/19 Pt seen and examined at bedside Pt laying in bed with NAD PHILOMENA RN who says pt's daughter has expressed difficulty in caring for pt and believes LTC is in the pt's best interest Vitals/I&O Vitals/I&O: Vital Signs Date Time Temp Pulse Resp B/P (MAP) Pulse Ox O2 Delivery O2 Flow Rate FiO2 05/20/19 07:44 98.4 98 18 157/79 (105) 93 Room Air 98.4 05/19/19 20:00 3.0 I & O 05/19/19 05/19/19 05/20/19 14:59 22:59 06:59 Intake Total 0 ml 0 ml 100 ml Output Total 400 ml Balance 0 ml -400 ml 100 ml Physical Exam Physical Exam: GENERAL: Lying down, calm and coop HEENT: Pupils equally round. Normal conjunctivae. Oropharynx pink, dry. NECK: Supple. LUNGS: Clear to auscultation. CARDIAC: S1, S2. ABDOMEN: Soft, nontender with bowel sounds present. : Sánchez EXTREMITIES: No gross edema or cyanosis. SKIN: Warm to touch. No signs of rash. NEUROLOGIC: Alert and confused PIV General: Alert, Cooperative, No acute distress Heart: Regular rate (SR), Normal S1, Normal S2, Other (distant heart sounds) Lungs: Clear Abdomen: Normal bowel sounds, Soft, No tenderness Extremities: No clubbing, No cyanosis, No edema Skin: No rashes, No breakdown, No significant lesion Labs Labs: Laboratory Tests Test 05/20/19 03:50 05/20/19 03:55 White Blood Count 16.5 x10^3/uL (4.0-11.0) Red Blood Count 4.15 x10^6/uL (3.50-5.40) Hemoglobin 12.5 g/dL (12.0-15.5) Hematocrit 38.3 % (36.0-47.0) Mean Corpuscular Volume 93 fL (79-100) Mean Corpuscular Hemoglobin 30 pg (25-35) Mean Corpuscular Hemoglobin Concent 33 g/dL (31-37) Red Cell Distribution Width 15.3 % (11.5-14.5) Platelet Count 225 x10^3/uL (140-400) Neutrophils (%) (Auto) 91 % (31-73) Lymphocytes (%) (Auto) 6 % (24-48) Monocytes (%) (Auto) 3 % (0-9) Eosinophils (%) (Auto) 0 % (0-3) Basophils (%) (Auto) 0 % (0-3) Neutrophils # (Auto) 15.0 x10^3/uL (1.8-7.7) Lymphocytes # (Auto) 1.0 x10^3/uL (1.0-4.8) Monocytes # (Auto) 0.6 x10^3/uL (0.0-1.1) Eosinophils # (Auto) 0.0 x10^3/uL (0.0-0.7) Basophils # (Auto) 0.0 x10^3/uL (0.0-0.2) Segmented Neutrophils % 92 % (35-66) Lymphocytes % 7 % (24-48) Monocytes % 1 % (0-10) Platelet Estimate Adequate (ADEQUATE) Sodium Level 136 mmol/L (136-145) Potassium Level 3.5 mmol/L (3.5-5.1) Chloride Level 97 mmol/L (98-107) Carbon Dioxide Level 25 mmol/L (21-32) Anion Gap 14 (6-14) Blood Urea Nitrogen 24 mg/dL (7-20) Creatinine 1.3 mg/dL (0.6-1.0) Estimated GFR (Cockcroft-Gault) 39.9 Glucose Level 136 mg/dL (70-99) Calcium Level 8.4 mg/dL (8.5-10.1) Review of Systems Review of Systems: co weakness no co SOB Assessment and Plan Assessmemt and Plan Problems Medical Problems: (1) Elevated troponin Status: Acute (2) Left lower lobe pneumonia Status: Acute Assessment: Pneumonia Dementia Elevated Troponin Plan Discharge to SNU once cleared by subspecialities Cardiac monitoring IV ABX Sánchez to bsd Jovanny PPN PRN O2 DVT prophylaxis Appreciate subspecialty input Comment Review of Relevant I have reviewed the following items anuel (where applicable) has been applied. Medications: Current Medications Medications (Trade) Dose Ordered Sig/Maria Esther Route PRN Reason Start Time Stop Time Status Last Admin Dose Admin Amino Acids/ Glycerin/ Electrolytes 1,000 ml @ 75 mls/hr [id number] IV 05/19/19 17:00 05/20/19 06:33 Ondansetron HCl (Zofran) 4 mg PRN Q6HRS PRN IV NAUSEA/VOMITING 1ST CHOICE 05/19/19 22:30 05/20/19 08:27 JUDY UNDERWOOD III DO May 20, 2019 10:16
--- NOTE | 2019-05-20 10:54 | PDOC ---
Infectious Disease Note Subjective Subjective says feeling ok, weak ROS ROS no n/v/d/sob Vital Sign Vital Signs Vital Signs Date Time Temp Pulse Resp B/P (MAP) Pulse Ox O2 Delivery O2 Flow Rate FiO2 05/20/19 07:44 98.4 98 18 157/79 (105) 93 Room Air 98.4 05/19/19 20:00 3.0 Physical Exam PHYSICAL EXAM GENERAL: Lying down, calm and coop HEENT: Pupils equally round. Normal conjunctivae. Oropharynx pink, dry. NECK: Supple. LUNGS: Clear to auscultation. CARDIAC: S1, S2. ABDOMEN: Soft, nontender with bowel sounds present. : Sánchez EXTREMITIES: No gross edema or cyanosis. SKIN: Warm to touch. No signs of rash. NEUROLOGIC: Alert and confused PIV Labs Lab Laboratory Tests Test 05/20/19 03:50 05/20/19 03:55 White Blood Count 16.5 x10^3/uL (4.0-11.0) Red Blood Count 4.15 x10^6/uL (3.50-5.40) Hemoglobin 12.5 g/dL (12.0-15.5) Hematocrit 38.3 % (36.0-47.0) Mean Corpuscular Volume 93 fL (79-100) Mean Corpuscular Hemoglobin 30 pg (25-35) Mean Corpuscular Hemoglobin Concent 33 g/dL (31-37) Red Cell Distribution Width 15.3 % (11.5-14.5) Platelet Count 225 x10^3/uL (140-400) Neutrophils (%) (Auto) 91 % (31-73) Lymphocytes (%) (Auto) 6 % (24-48) Monocytes (%) (Auto) 3 % (0-9) Eosinophils (%) (Auto) 0 % (0-3) Basophils (%) (Auto) 0 % (0-3) Neutrophils # (Auto) 15.0 x10^3/uL (1.8-7.7) Lymphocytes # (Auto) 1.0 x10^3/uL (1.0-4.8) Monocytes # (Auto) 0.6 x10^3/uL (0.0-1.1) Eosinophils # (Auto) 0.0 x10^3/uL (0.0-0.7) Basophils # (Auto) 0.0 x10^3/uL (0.0-0.2) Segmented Neutrophils % 92 % (35-66) Lymphocytes % 7 % (24-48) Monocytes % 1 % (0-10) Platelet Estimate Adequate (ADEQUATE) Sodium Level 136 mmol/L (136-145) Potassium Level 3.5 mmol/L (3.5-5.1) Chloride Level 97 mmol/L (98-107) Carbon Dioxide Level 25 mmol/L (21-32) Anion Gap 14 (6-14) Blood Urea Nitrogen 24 mg/dL (7-20) Creatinine 1.3 mg/dL (0.6-1.0) Estimated GFR (Cockcroft-Gault) 39.9 Glucose Level 136 mg/dL (70-99) Calcium Level 8.4 mg/dL (8.5-10.1) Micro Microbiology 05/17/19 Blood Culture - Preliminary, Resulted NO GROWTH AFTER 1 DAY Objective Assessment GPC bacteremia from 05/15. coag neg staph,, likely contaminant Pneumonia Pulmonary nodules Leukocytosis BUTCH - improved Generalized weakness Encephalopathy Plan Plan of Care continue Zosyn and doxy,, Monitor renal function closely Labs in am f/u cultures Maintain aspiration precautions Supportive care RISA ALMONTE MD May 20, 2019 10:54
[2019-05-20 11:37] VITALS: BP 151/88
--- NOTE | 2019-05-20 14:41 | NUR ---
CONCETTA following pt. PT/OT recommends SNU. CONCETTA notified by RN pt's daughter was looking into [facility] in [place]. CONCETTA phoned and faxed referral to [facility], , fax: [phone]. Pt acceptance and admission pending. Jossie from [facility] will come to do bedside eval today. Discussed with Pt's daughter, Sophie via phone, . Will continue to follow.
[2019-05-20 15:53] VITALS: BP 121/56
[2019-05-20 19:06] VITALS: BP 106/76
[2019-05-20 23:46] VITALS: BP 113/83
[2019-05-21] VITALS (10 sets, daily range): BP systolic 78–131; BP diastolic 43–108
[2019-05-21] MEDS: PIPERACILLIN/TAZOBACTAM 3.375 GM in IV NORMAL SALINE 50ML 50 ML IV SCH ×2 (00:03→05:31)
[2019-05-21 06:23] LABS: BASO % 0 % (0-3); EOS % 0 % (0-3); HEMOGLOBIN 11.9 g/dL (12.0-15.5); LYMPH # 0.9 x10^3/uL (1.0-4.8); LYMPH % 6 % (24-48); MEAN CORPUSCULAR HEMOGLOBIN 31 pg (25-35); MEAN CORPUSCULAR HGB CONC 33 g/dL (31-37); MEAN CORPUSCULAR VOLUME 92 fL (79-100); MONO # 0.7 x10^3/uL (0.0-1.1); MONO % 4 % (0-9); NEUT # 14.2 x10^3/uL (1.8-7.7); NEUT % 90 % (31-73); PLATELET COUNT 192 x10^3/uL (140-400); RED BLOOD COUNT 3.91 x10^6/uL (3.50-5.40); RED CELL DISTRIBUTION WIDTH 15.7 % (11.5-14.5); WHITE BLOOD COUNT 15.9 x10^3/uL (4.0-11.0)
[2019-05-21 06:30] LABS: CALCIUM 8.3 mg/dL (8.5-10.1); CREATININE 1.2 mg/dL (0.6-1.0); GFR 43.8; POTASSIUM 3.5 mmol/L (3.5-5.1)
[2019-05-21] MEDS: ALBUTEROL SULFATE 2.5 MG/3 ML NEBU. NEB SCH ×4 (07:33→20:16)
[2019-05-21] MEDS: DOXYCYCLINE HYCLATE 100 MG TABLET PO SCH (08:57)
[2019-05-21] MEDS: LACTOBACILLUS RHAMNOSUS GG 1 CAPSULE. PO SCH ×2 (08:57→21:00)
--- NOTE | 2019-05-21 09:35 | PDOC ---
PULMONARY PROGRESS NOTES Subjective SLEEPY NO DISTRESS Vitals Vital Signs Date Time Temp Pulse Resp B/P (MAP) Pulse Ox O2 Delivery O2 Flow Rate FiO2 05/21/19 07:59 98.3 51 16 131/108 (116) 93 Room Air 98.3 05/20/19 19:57 3.0 ROS: No Nausea, No Chest Pain, No Abdominal Pain, No Increase Cough Lungs: Clear Cardiovascular: S1, S2 Abdomen: Soft Neuro Exam: Alert Extremities: No Edema Skin: Warm Labs Laboratory Tests Test 05/20/19 03:50 05/20/19 03:55 05/21/19 05:55 White Blood Count 16.5 x10^3/uL (4.0-11.0) 15.9 x10^3/uL (4.0-11.0) Red Blood Count 4.15 x10^6/uL (3.50-5.40) 3.91 x10^6/uL (3.50-5.40) Hemoglobin 12.5 g/dL (12.0-15.5) 11.9 g/dL (12.0-15.5) Hematocrit 38.3 % (36.0-47.0) 36.0 % (36.0-47.0) Mean Corpuscular Volume 93 fL (79-100) 92 fL (79-100) Mean Corpuscular Hemoglobin 30 pg (25-35) 31 pg (25-35) Mean Corpuscular Hemoglobin Concent 33 g/dL (31-37) 33 g/dL (31-37) Red Cell Distribution Width 15.3 % (11.5-14.5) 15.7 % (11.5-14.5) Platelet Count 225 x10^3/uL (140-400) 192 x10^3/uL (140-400) Neutrophils (%) (Auto) 91 % (31-73) 90 % (31-73) Lymphocytes (%) (Auto) 6 % (24-48) 6 % (24-48) Monocytes (%) (Auto) 3 % (0-9) 4 % (0-9) Eosinophils (%) (Auto) 0 % (0-3) 0 % (0-3) Basophils (%) (Auto) 0 % (0-3) 0 % (0-3) Neutrophils # (Auto) 15.0 x10^3/uL (1.8-7.7) 14.2 x10^3/uL (1.8-7.7) Lymphocytes # (Auto) 1.0 x10^3/uL (1.0-4.8) 0.9 x10^3/uL (1.0-4.8) Monocytes # (Auto) 0.6 x10^3/uL (0.0-1.1) 0.7 x10^3/uL (0.0-1.1) Eosinophils # (Auto) 0.0 x10^3/uL (0.0-0.7) 0.0 x10^3/uL (0.0-0.7) Basophils # (Auto) 0.0 x10^3/uL (0.0-0.2) 0.0 x10^3/uL (0.0-0.2) Segmented Neutrophils % 92 % (35-66) Lymphocytes % 7 % (24-48) Monocytes % 1 % (0-10) Platelet Estimate Adequate (ADEQUATE) Sodium Level 136 mmol/L (136-145) 135 mmol/L (136-145) Potassium Level 3.5 mmol/L (3.5-5.1) 3.5 mmol/L (3.5-5.1) Chloride Level 97 mmol/L (98-107) 98 mmol/L (98-107) Carbon Dioxide Level 25 mmol/L (21-32) 26 mmol/L (21-32) Anion Gap 14 (6-14) 11 (6-14) Blood Urea Nitrogen 24 mg/dL (7-20) 41 mg/dL (7-20) Creatinine 1.3 mg/dL (0.6-1.0) 1.2 mg/dL (0.6-1.0) Estimated GFR (Cockcroft-Gault) 39.9 43.8 Glucose Level 136 mg/dL (70-99) 149 mg/dL (70-99) Calcium Level 8.4 mg/dL (8.5-10.1) 8.3 mg/dL (8.5-10.1) Laboratory Tests Test 05/21/19 05:55 White Blood Count 15.9 x10^3/uL (4.0-11.0) Red Blood Count 3.91 x10^6/uL (3.50-5.40) Hemoglobin 11.9 g/dL (12.0-15.5) Hematocrit 36.0 % (36.0-47.0) Mean Corpuscular Volume 92 fL (79-100) Mean Corpuscular Hemoglobin 31 pg (25-35) Mean Corpuscular Hemoglobin Concent 33 g/dL (31-37) Red Cell Distribution Width 15.7 % (11.5-14.5) Platelet Count 192 x10^3/uL (140-400) Neutrophils (%) (Auto) 90 % (31-73) Lymphocytes (%) (Auto) 6 % (24-48) Monocytes (%) (Auto) 4 % (0-9) Eosinophils (%) (Auto) 0 % (0-3) Basophils (%) (Auto) 0 % (0-3) Neutrophils # (Auto) 14.2 x10^3/uL (1.8-7.7) Lymphocytes # (Auto) 0.9 x10^3/uL (1.0-4.8) Monocytes # (Auto) 0.7 x10^3/uL (0.0-1.1) Eosinophils # (Auto) 0.0 x10^3/uL (0.0-0.7) Basophils # (Auto) 0.0 x10^3/uL (0.0-0.2) Sodium Level 135 mmol/L (136-145) Potassium Level 3.5 mmol/L (3.5-5.1) Chloride Level 98 mmol/L (98-107) Carbon Dioxide Level 26 mmol/L (21-32) Anion Gap 11 (6-14) Blood Urea Nitrogen 41 mg/dL (7-20) Creatinine 1.2 mg/dL (0.6-1.0) Estimated GFR (Cockcroft-Gault) 43.8 Glucose Level 149 mg/dL (70-99) Calcium Level 8.3 mg/dL (8.5-10.1) Comments CT CHEST Right lower lobe bronchitis. Minimal posterior right basilar atelectasis. Bilateral very small pulmonary nodules are present. If the patient has no significant risk factors, then no further follow-up is required. Alternatively, interval follow-up at 12 months should be considered if there are significant risk factors for lung carcinoma. Impression . 1. Abnormal x-ray compatible with pneumonia. 2. Pneumonia, suspect gram-negative. 3. Underlying dementia. 4. Toxic encephalopathy, present upon admission secondary to pneumonia. 5. Leukocytosis. 6. Renal insufficiency. 7. BACTEREMIA/ ( STAPH COAG NEG), likely contaminant Plan . RESP STATUS IS COMPENSATED ANTIBX PER ID IMPROVING WBC, NO FEVER [address] CHEST WITH TINY 2 MM NODULES, DOES NOT NEED ANY F/U ( LOW RISK FOR MALIGNANCY) OK WITH DC TO SKILL D/W KOFI ALARCON MD May 21, 2019 09:35
[2019-05-21] MEDS: AMINO AC 3%/ELECTROLYTE/GLYCER 1,000 ML IV SCH (09:56)
--- NOTE | 2019-05-21 11:09 | NUR ---
SW following pt. Pt has been accepted at [facility]. Spoke with Physician and pt is not eating well, currently on PPN. Physician to consult Palliative care. Will continue to follow.
--- NOTE | 2019-05-21 11:24 | PDOC ---
[employer] PROGRESS NOTE Chief Complaint Chief Complaint Pneumonia Sepsis Dementia Elevated Troponin History of Present Illness History of Present Illness 05/21/19 Pt seen/examined at bedside and resting NAD Pt has not been eating recently and is currently on PPN Chart reviewed PHILOMENA RN 05/20/19 Pt seen/examined at bedside and resting NAD Pt states she does not want a feeding tube in the future PHILOMENA RN who states that Dr. Wade wants to keep patient and re-evaluate tomorrow due to her elevated WBC 16.5 Chart reviewed 05/19/19 Pt seen/examined at bedside Pt resting in NAD PHILOMENA RN Chart reviewed 05/18/19 Pt seen/examined at bedside with NAD Per RN patient was disruptive last night and was put on sedatives Chart Reviewed 05/17/19 Pt seen and examined at bedside Pt laying in bed with NAD PHILOMENA RN who says pt's daughter has expressed difficulty in caring for pt and believes LTC is in the pt's best interest Vitals/I&O Vitals/I&O: Vital Signs Date Time Temp Pulse Resp B/P (MAP) Pulse Ox O2 Delivery O2 Flow Rate FiO2 05/21/19 08:00 Room Air 05/21/19 07:59 98.3 51 16 131/108 (116) 93 98.3 05/20/19 19:57 3.0 I & O 05/20/19 05/20/19 05/21/19 15:00 23:00 07:00 Intake Total 100 ml 0 ml Output Total 525 ml 250 ml Balance 100 ml -525 ml -250 ml Physical Exam Physical Exam: GENERAL: Lying down, calm and coop HEENT: Pupils equally round. Normal conjunctivae. Oropharynx pink, dry. NECK: Supple. LUNGS: Clear to auscultation. CARDIAC: S1, S2. ABDOMEN: Soft, nontender with bowel sounds present. : Sánchez EXTREMITIES: No gross edema or cyanosis. SKIN: Warm to touch. No signs of rash. NEUROLOGIC: Alert and confused PIV General: Alert, Cooperative, No acute distress Heart: Regular rate (SR), Normal S1, Normal S2, Other (distant heart sounds) Lungs: Clear Abdomen: Normal bowel sounds, Soft, No tenderness Extremities: No clubbing, No cyanosis, No edema Skin: No rashes, No breakdown, No significant lesion Labs Labs: Laboratory Tests Test 05/21/19 05:55 White Blood Count 15.9 x10^3/uL (4.0-11.0) Red Blood Count 3.91 x10^6/uL (3.50-5.40) Hemoglobin 11.9 g/dL (12.0-15.5) Hematocrit 36.0 % (36.0-47.0) Mean Corpuscular Volume 92 fL (79-100) Mean Corpuscular Hemoglobin 31 pg (25-35) Mean Corpuscular Hemoglobin Concent 33 g/dL (31-37) Red Cell Distribution Width 15.7 % (11.5-14.5) Platelet Count 192 x10^3/uL (140-400) Neutrophils (%) (Auto) 90 % (31-73) Lymphocytes (%) (Auto) 6 % (24-48) Monocytes (%) (Auto) 4 % (0-9) Eosinophils (%) (Auto) 0 % (0-3) Basophils (%) (Auto) 0 % (0-3) Neutrophils # (Auto) 14.2 x10^3/uL (1.8-7.7) Lymphocytes # (Auto) 0.9 x10^3/uL (1.0-4.8) Monocytes # (Auto) 0.7 x10^3/uL (0.0-1.1) Eosinophils # (Auto) 0.0 x10^3/uL (0.0-0.7) Basophils # (Auto) 0.0 x10^3/uL (0.0-0.2) Sodium Level 135 mmol/L (136-145) Potassium Level 3.5 mmol/L (3.5-5.1) Chloride Level 98 mmol/L (98-107) Carbon Dioxide Level 26 mmol/L (21-32) Anion Gap 11 (6-14) Blood Urea Nitrogen 41 mg/dL (7-20) Creatinine 1.2 mg/dL (0.6-1.0) Estimated GFR (Cockcroft-Gault) 43.8 Glucose Level 149 mg/dL (70-99) Calcium Level 8.3 mg/dL (8.5-10.1) Review of Systems Review of Systems: co weakness co fatigue Assessment and Plan Assessmemt and Plan Problems Medical Problems: (1) Elevated troponin Status: Acute (2) Left lower lobe pneumonia Status: Acute (3) Sepsis Status: Acute Assessment: Pneumonia Sepsis Dementia Elevated Troponin Plan 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 JUDY UNDERWOOD III, DO May 21, 2019 11:24
[2019-05-21] MEDS ORDERED: IV NORMAL SALINE 500ML BAG 500 ML IV ONE (12:30)
--- NOTE | 2019-05-21 13:35 | PDOC ---
Infectious Disease Note Subjective Subjective says feeling ok, weak ROS ROS no n/v/d/ Vital Sign Vital Signs Vital Signs Date Time Temp Pulse Resp B/P (MAP) Pulse Ox O2 Delivery O2 Flow Rate FiO2 05/21/19 11:59 98.3 111 18 84/64 (71) 93 Room Air 98.3 05/20/19 19:57 3.0 Physical Exam PHYSICAL EXAM GENERAL: Lying down, calm and coop HEENT: Pupils equally round. Normal conjunctivae. Oropharynx pink, dry. NECK: Supple. LUNGS: Clear to auscultation. CARDIAC: S1, S2. ABDOMEN: Soft, nontender with bowel sounds present. : Sánchez EXTREMITIES: No gross edema or cyanosis. SKIN: Warm to touch. No signs of rash. NEUROLOGIC: Alert and confused PIV Labs Lab Laboratory Tests Test 05/21/19 05:55 White Blood Count 15.9 x10^3/uL (4.0-11.0) Red Blood Count 3.91 x10^6/uL (3.50-5.40) Hemoglobin 11.9 g/dL (12.0-15.5) Hematocrit 36.0 % (36.0-47.0) Mean Corpuscular Volume 92 fL (79-100) Mean Corpuscular Hemoglobin 31 pg (25-35) Mean Corpuscular Hemoglobin Concent 33 g/dL (31-37) Red Cell Distribution Width 15.7 % (11.5-14.5) Platelet Count 192 x10^3/uL (140-400) Neutrophils (%) (Auto) 90 % (31-73) Lymphocytes (%) (Auto) 6 % (24-48) Monocytes (%) (Auto) 4 % (0-9) Eosinophils (%) (Auto) 0 % (0-3) Basophils (%) (Auto) 0 % (0-3) Neutrophils # (Auto) 14.2 x10^3/uL (1.8-7.7) Lymphocytes # (Auto) 0.9 x10^3/uL (1.0-4.8) Monocytes # (Auto) 0.7 x10^3/uL (0.0-1.1) Eosinophils # (Auto) 0.0 x10^3/uL (0.0-0.7) Basophils # (Auto) 0.0 x10^3/uL (0.0-0.2) Sodium Level 135 mmol/L (136-145) Potassium Level 3.5 mmol/L (3.5-5.1) Chloride Level 98 mmol/L (98-107) Carbon Dioxide Level 26 mmol/L (21-32) Anion Gap 11 (6-14) Blood Urea Nitrogen 41 mg/dL (7-20) Creatinine 1.2 mg/dL (0.6-1.0) Estimated GFR (Cockcroft-Gault) 43.8 Glucose Level 149 mg/dL (70-99) Calcium Level 8.3 mg/dL (8.5-10.1) Objective Assessment GPC bacteremia from 05/15. coag neg staph,, likely contaminant Pneumonia Pulmonary nodules Leukocytosis BUTCH - improved Generalized weakness Encephalopathy Plan Plan of Care change antibiotics to po augmentin and zyvox for 5 more days Monitor renal function closely Labs in am f/u cultures Maintain aspiration precautions Supportive care ok to d/c to RISA ALMONTE MD May 21, 2019 13:35
--- NOTE | 2019-05-21 14:59 | PDOC2 ---
GI CONSULT Reason For Consult: Blood in stool HPI: HPI: 73 y/o female admitted on 05/15/19. History from chart and staff - no meaningful history from pt today. ER summary suggest she fell in the bathroom at home and family reports she had been in bed for 70 days. Apparently also stopped her medications, had also not been eating, and had a dark stool at home. Admitted w/ abnormal chest imaging/possible pneumonia. D/w nurse - swallows pills without issue but spits out food when staff feeds her and says she's not hungry. Has also c/o nausea. Stooled on 05/17 - apparently normal. This morning, had a brown stool mixed w/ "tacky" red blood and we were asked to see re: this. Hgb was 14.1 on admission and has been in 11-12 range since; today is 11.9. BUN 28 w/ Cr 1.7 on admission; today BUN 41 and Cr 1.2. Palliative care asked to see as well. Colon[place] [address] Abrams showed hyperplastic rectal polyp. PMH: PMH: emphysema, dementia FH: Family History: Other (unable to obtain) Social History: Smoke: <1 pack per day ALCOHOL: none Drugs: None ROS: Unable to obtain. Vitals: Vitals: Vital Signs Date Time Temp Pulse Resp B/P (MAP) Pulse Ox O2 Delivery O2 Flow Rate FiO2 05/21/19 11:59 98.3 111 18 84/64 (71) 93 Room Air 98.3 05/20/19 19:57 3.0 Labs: Labs: Laboratory Tests Test 05/21/19 05:55 White Blood Count 15.9 x10^3/uL (4.0-11.0) Red Blood Count 3.91 x10^6/uL (3.50-5.40) Hemoglobin 11.9 g/dL (12.0-15.5) Hematocrit 36.0 % (36.0-47.0) Mean Corpuscular Volume 92 fL (79-100) Mean Corpuscular Hemoglobin 31 pg (25-35) Mean Corpuscular Hemoglobin Concent 33 g/dL (31-37) Red Cell Distribution Width 15.7 % (11.5-14.5) Platelet Count 192 x10^3/uL (140-400) Neutrophils (%) (Auto) 90 % (31-73) Lymphocytes (%) (Auto) 6 % (24-48) Monocytes (%) (Auto) 4 % (0-9) Eosinophils (%) (Auto) 0 % (0-3) Basophils (%) (Auto) 0 % (0-3) Neutrophils # (Auto) 14.2 x10^3/uL (1.8-7.7) Lymphocytes # (Auto) 0.9 x10^3/uL (1.0-4.8) Monocytes # (Auto) 0.7 x10^3/uL (0.0-1.1) Eosinophils # (Auto) 0.0 x10^3/uL (0.0-0.7) Basophils # (Auto) 0.0 x10^3/uL (0.0-0.2) Sodium Level 135 mmol/L (136-145) Potassium Level 3.5 mmol/L (3.5-5.1) Chloride Level 98 mmol/L (98-107) Carbon Dioxide Level 26 mmol/L (21-32) Anion Gap 11 (6-14) Blood Urea Nitrogen 41 mg/dL (7-20) Creatinine 1.2 mg/dL (0.6-1.0) Estimated GFR (Cockcroft-Gault) 43.8 Glucose Level 149 mg/dL (70-99) Calcium Level 8.3 mg/dL (8.5-10.1) BLOOD CULTURE Final GRAM POSITIVE COCCI IN CLUSTERS, SUGGESTIVE OF STAPH, IN 2 OF 2 BOTTLES Allergies: Coded Allergies: No Known Drug Allergies (Unverified , 05/15/19) Medications: Current Medications Medications (Trade) Dose Ordered Sig/Maria Esther Route PRN Reason Start Time Stop Time Status Last Admin Dose Admin Sodium Chloride 500 ml @ 500 mls/hr 1X ONCE IV 05/21/19 12:30 05/21/19 13:29 DC 05/21/19 12:37 Imaging: Imaging: Head CT 05/20 IMPRESSION: No acute intracranial hemorrhage. Moderate generalized cerebral volume loss. Low-attenuation in the periventricular white matter is suggestive of chronic small vessel ischemic changes. Moderate mucosal thickening of the left maxillary sinus with air-fluid level. There is hypoattenuation which may represent inspissated mucus versus fungal colonization versus blood products. Correlate with any tenderness of the m axillary sinus to assess for occult fracture. Indeterminate calvarial lesions, the larger of which is identified in the left frontal calvaria eroding the outer cortex. Correlate with any underlying history of malignancy (i.e. multiple myeloma). Findings are nonspecific and short-term follow-up may be of benefit. Chest CT 05/16 Impression: Right lower lobe bronchitis. Minimal posterior right basilar atelectasis. Bilateral very small pulmonary nodules are present. If the patient has no significant risk factors, then no further follow-up is required. Alternatively, interval follow-up at 12 months should be considered if there are significant risk factors for lung carcinoma. Echocardiogram 05/16 <Conclusion> The left ventricle is normal size. The left ventricular systolic function is normal. The Ejection Fraction is 55-60%. There is mild concentric left ventricular hypertrophy. There is no significant aortic valvular stenosis. Doppler and Color Flow revealed no significant aortic regurgitation. Doppler and Color Flow revealed trace mitral valve regurgitation. Doppler and Color Flow revealed trace tricuspid regurgitation with an estimated PAP of 29 mmHg. There is a trace to mild circumferential pericardial effusion with no hemodynamic significance. CXR 05/15 Impression: 1. There is suspected emphysema, no significant infiltrate. 2. There is calcified lesion of the proximal humerus, primary consideration a chondroid lesion. PE: GEN: NAD - lunch tray untouched, alone in room HEENT: Atraumatic LUNGS: poor effort HEART: tachycardic ABD: NABS, S/ND/NT EXTREMITY: No edema SKIN: No rashes, no jaundice NEURO/PSYCH: awake, moans A/P: A/P: Dementia Abnormal chest imaging/pneumonia, bacteremia (likely contaminant) Leukocytosis, BUTCH (better), mild normocytic anemia Anorexia, nausea - spits food out Blood in stool - once today CRC screen - UTD -- No history from patient. Would monitor for recurrent bleeding and monitor labs - not an ideal endoscopy candidate. 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 Await outcome of palliative discussion. ROSIE MAYA May 21, 2019 14:59
--- NOTE | 2019-05-21 15:48 | PDOC2 ---
PALLIATIVE CARE Palliative Care Note Palliative Care Consult requested by Dr. Montalvo to address goals of care. Medical Assessment per medical record; Pneumonia Dementia Elevated Troponin Patient opens eyes to verbal stimulation. Received permission to call daughter to discuss plan of care. Poor Appetite. On PPN Attempted to call Leslie [phone].. Message left to return call. Code Status; Full Code Patient has been accepted at [facility]. \ CHRISTY PASTRANA May 21, 2019 15:48
[2019-05-21 18:28] LABS: CREATININE 1.5 mg/dL (0.6-1.0); GFR 33.9
[2019-05-21 18:37] LABS: BASE EXCESS ABG -3 mmol/L (-3-3); HCO3 ABG 20 mmol/L (21-28); PCO2 ABG 31 mmHg (35-46); PO2 ABG 77 mmHg (65-108); SAT O2 ABG 95 % (92-99)
[2019-05-21 18:41] LABS: FIO2 ABG 32
[2019-05-21 19:07] LABS: HEMOGLOBIN 10.5 g/dL (12.0-15.5); RED BLOOD COUNT 3.44 x10^6/uL (3.50-5.40); WHITE BLOOD COUNT 17.5 x10^3/uL (4.0-11.0)
[2019-05-21 19:08] LABS: HEMATOCRIT 32.3 % (36.0-47.0); RED CELL DISTRIBUTION WIDTH 15.7 % (11.5-14.5)
--- NOTE | 2019-05-21 19:09 | NUR ---
This RN was called to patient room by nurse aid as pt had stool in blood. After getting cleaned up, the patient had another stool with blood. It was dark and liquid with some visible clots. After getting patient cleaned up, the patient began coughing and threw up some coffee ground emesis. Charge nurse was called in and then called Dr. Velez and received orders. Rapid team called and at beside. EKG, vitals, and bolus given. Patient is transferred down to ICU and report given at beside.
[2019-05-21] MEDS: IV NORMAL SALINE 1000ML BAG 1,000 ML IV SCH ×2 (19:37→21:23)
[2019-05-21] MEDS: PANTOPRAZOLE SODIUM IV DRIP 80 MG in IV NORMAL SALINE 100ML 100 ML IV SCH (19:37)
[2019-05-21] MEDS ORDERED: NOREPINEPHRIN 8MG/250ML PREMIX 250 ML IV PRN (20:15)
[2019-05-21] MEDS ORDERED: LINEZOLID 600 MG TABLET PO SCH (21:00)
[2019-05-21] MEDS ORDERED: AMOXICILLIN/K CLAV 875/125MG TABLET. PO SCH (21:00)
[2019-05-21] MEDS ORDERED: HEPARIN for NUC MED 500 UNIT/5 ML DISP.SYRIN. IV ONE (21:45)
[2019-05-22] VITALS (12 sets, daily range): BP systolic 80–115; BP diastolic 58–78
--- NOTE | 2019-05-22 00:02 | RAD ---
GI bleeding study. HISTORY: Decreased hemoglobin, coffee-ground emesis, dark red stool GI bleeding study was done using 25 mCi technetium 99 UltraTag red blood cells. Imaging was carried out for 58 minutes. Initial flow images are unremarkable. There is normal liver and spleen activity. There is normal cardiac activity. There is no abnormal activity in the abdomen. An acute GI bleed was not demonstrated. There is mild bladder activity by the end of the study. IMPRESSION: 1. GI bleeding study negative for an acute bleed. Electronically signed by: Eran Garcia MD (05/21/2019 11:59 PM) [facility]
[2019-05-22] MEDS: PIPERACILLIN/TAZOBACTAM 3.375 GM in IV NORMAL SALINE 50ML 50 ML IV SCH ×3 (00:39→13:02)
[2019-05-22] MEDS: IV NORMAL SALINE 1000ML BAG 1,000 ML IV SCH ×2 (00:39→04:27)
[2019-05-22 01:49] LABS: HEMATOCRIT 30.8 % (36.0-47.0); HEMOGLOBIN 10.1 g/dL (12.0-15.5); RED BLOOD COUNT 3.33 x10^6/uL (3.50-5.40); RED CELL DISTRIBUTION WIDTH 15.2 % (11.5-14.5); WHITE BLOOD COUNT 15.3 x10^3/uL (4.0-11.0)
[2019-05-22] MEDS: PANTOPRAZOLE SODIUM IV DRIP 80 MG in IV NORMAL SALINE 100ML 100 ML IV SCH ×2 (04:08→15:39)
[2019-05-22 04:51] LABS: BASO % 0 % (0-3); EOS % 0 % (0-3); HEMATOCRIT 30.5 % (36.0-47.0); HEMOGLOBIN 9.9 g/dL (12.0-15.5); LYMPH # 1.2 x10^3/uL (1.0-4.8); LYMPH % 9 % (24-48); MEAN CORPUSCULAR HEMOGLOBIN 30 pg (25-35); MEAN CORPUSCULAR HGB CONC 32 g/dL (31-37); MEAN CORPUSCULAR VOLUME 93 fL (79-100); MONO # 0.7 x10^3/uL (0.0-1.1); MONO % 5 % (0-9); NEUT % 86 % (31-73); PLATELET COUNT 147 x10^3/uL (140-400); RED BLOOD COUNT 3.29 x10^6/uL (3.50-5.40); RED CELL DISTRIBUTION WIDTH 15.6 % (11.5-14.5)
[2019-05-22 05:24] LABS: CALCIUM 7.7 mg/dL (8.5-10.1); CREATININE 1.3 mg/dL (0.6-1.0); GFR 39.9; POTASSIUM 3.4 mmol/L (3.5-5.1)
[2019-05-22] MEDS: ALBUTEROL SULFATE 2.5 MG/3 ML NEBU. NEB SCH ×4 (07:17→19:42)
--- NOTE | 2019-05-22 07:26 | PDOC ---
Infectious Disease Note Subjective Subjective events noted, evidently had GI bleed and hypotension, now in ICU, off vasopressors after fluids and blood bleeding scan neg, no one has seen any blood in ICU ROS ROS no n/v/d/fever, mumbles Vital Sign Vital Signs Vital Signs Date Time Temp Pulse Resp B/P (MAP) Pulse Ox O2 Delivery O2 Flow Rate FiO2 05/22/19 07:17 95 Nasal Cannula 3.0 05/22/19 06:00 101 19 115/77 (90) 05/22/19 04:00 96.7 96.7 Physical Exam PHYSICAL EXAM GENERAL: Lying down, lethargic HEENT: Pupils equally round. Normal conjunctivae. Oropharynx pink, dry. NECK: Supple. LUNGS: Clear to auscultation. CARDIAC: S1, S2. ABDOMEN: Soft, nontender with bowel sounds present. : Sánchez EXTREMITIES: No gross edema or cyanosis. SKIN: Warm to touch. No signs of rash. NEUROLOGIC: lethargic, moves all ext PIV Labs Lab Laboratory Tests Test 05/21/19 18:05 05/21/19 18:30 05/21/19 22:20 05/22/19 01:55 White Blood Count 17.5 x10^3/uL (4.0-11.0) 15.3 x10^3/uL (4.0-11.0) Red Blood Count 3.44 x10^6/uL (3.50-5.40) 3.33 x10^6/uL (3.50-5.40) Hemoglobin 10.5 g/dL (12.0-15.5) 10.1 g/dL (12.0-15.5) Hematocrit 32.3 % (36.0-47.0) 30.8 % (36.0-47.0) Mean Corpuscular Volume 94 fL (79-100) 93 fL (79-100) Mean Corpuscular Hemoglobin 31 pg (25-35) 30 pg (25-35) Mean Corpuscular Hemoglobin Concent 33 g/dL (31-37) 33 g/dL (31-37) Red Cell Distribution Width 15.7 % (11.5-14.5) 15.2 % (11.5-14.5) Platelet Count 176 x10^3/uL (140-400) 52 x10^3/uL (140-400) Sodium Level 135 mmol/L (136-145) Potassium Level 4.0 mmol/L (3.5-5.1) Chloride Level 100 mmol/L (98-107) Carbon Dioxide Level 24 mmol/L (21-32) Anion Gap 11 (6-14) Blood Urea Nitrogen 52 mg/dL (7-20) Creatinine 1.5 mg/dL (0.6-1.0) Estimated GFR (Cockcroft-Gault) 33.9 Glucose Level 161 mg/dL (70-99) Calcium Level 8.0 mg/dL (8.5-10.1) O2 Saturation 95 % (92-99) Arterial Blood pH 7.44 (7.35-7.45) Arterial Blood pCO2 at Patient Temp 31 mmHg (35-46) Arterial Blood pO2 at Patient Temp 77 mmHg (65-108) Arterial Blood HCO3 20 mmol/L (21-28) Arterial Blood Base Excess -3 mmol/L (-3-3) FiO2 32 Lactic Acid Level 3.4 mmol/L (0.4-2.0) 3.2 mmol/L (0.4-2.0) Test 05/22/19 04:25 White Blood Count 14.0 x10^3/uL (4.0-11.0) Red Blood Count 3.29 x10^6/uL (3.50-5.40) Hemoglobin 9.9 g/dL (12.0-15.5) Hematocrit 30.5 % (36.0-47.0) Mean Corpuscular Volume 93 fL (79-100) Mean Corpuscular Hemoglobin 30 pg (25-35) Mean Corpuscular Hemoglobin Concent 32 g/dL (31-37) Red Cell Distribution Width 15.6 % (11.5-14.5) Platelet Count 147 x10^3/uL (140-400) Neutrophils (%) (Auto) 86 % (31-73) Lymphocytes (%) (Auto) 9 % (24-48) Monocytes (%) (Auto) 5 % (0-9) Eosinophils (%) (Auto) 0 % (0-3) Basophils (%) (Auto) 0 % (0-3) Neutrophils # (Auto) 12.0 x10^3/uL (1.8-7.7) Lymphocytes # (Auto) 1.2 x10^3/uL (1.0-4.8) Monocytes # (Auto) 0.7 x10^3/uL (0.0-1.1) Eosinophils # (Auto) 0.0 x10^3/uL (0.0-0.7) Basophils # (Auto) 0.0 x10^3/uL (0.0-0.2) Sodium Level 137 mmol/L (136-145) Potassium Level 3.4 mmol/L (3.5-5.1) Chloride Level 101 mmol/L (98-107) Carbon Dioxide Level 26 mmol/L (21-32) Anion Gap 10 (6-14) Blood Urea Nitrogen 55 mg/dL (7-20) Creatinine 1.3 mg/dL (0.6-1.0) Estimated GFR (Cockcroft-Gault) 39.9 Glucose Level 137 mg/dL (70-99) Calcium Level 7.7 mg/dL (8.5-10.1) Objective Assessment Hypotension Lactic acidosis GI bleed GPC bacteremia from 05/15. coag neg staph,, likely contaminant Pneumonia Pulmonary nodules Leukocytosis BUTCH - improved Encephalopathy Plan Plan of Care panculture start vanc and zosyn supportive care RISA ALMONTE MD May 22, 2019 07:26
[2019-05-22] MEDS ORDERED: VANCOMYCIN PER PHARMACY MC PRN (07:30)
[2019-05-22] MEDS: PANTOPRAZOLE 40 MG TABLET.DR. PO SCH (07:30)
--- NOTE | 2019-05-22 08:37 | PDOC ---
PROGRESS NOTES Chief Complaint Chief Complaint IMPRESSION Pneumonia Dementia Elevated Troponin POS BLOOD CULT GI BLEED 9/4 pm GI bleeding study negative for an acute bleed. Code Status; Full Code has been accepted at [facility]. when stable\ History of Present Illness History of Present Illness 05/22/19 Pt seen/examined at bedside and resting weak PPN Chart reviewed panculture start iv vanc and zosyn PHILOMENA RN last PM transferred to ICU w/ coffee-ground emesis and dark stools w/ clots - no recurrent bleeding in ICU. BLOOD CULTURE Final GRAM POSITIVE COCCI IN CLUSTERS, SUGGESTIVE OF STAPH, IN 2 OF 2 BOTTLES, ONE SET DRAWN. metabolic encephalopathy ID FOLLOWING 05/20/19 Pt seen/examined at bedside and resting NAD Pt states she does not want a feeding tube in the future PHILOMENA RN who states that Dr. Wade wants to keep patient and re-evaluate tomorrow due to her elevated WBC 16.5 Chart reviewed 05/19/19 Pt seen/examined at bedside Pt resting in NAD PHILOMENA RN Chart reviewed 05/18/19 Pt seen/examined at bedside with NAD Per RN patient was disruptive last night and was put on sedatives Chart Reviewed 05/17/19 Pt seen and examined at bedside Pt laying in bed with NAD PHILOMENA RN who says pt's daughter has expressed difficulty in caring for pt and believes LTC is in the pt's best interest 38 min cc time Vitals Vitals Vital Signs Date Time Temp Pulse Resp B/P (MAP) Pulse Ox O2 Delivery O2 Flow Rate FiO2 05/22/19 07:17 95 Nasal Cannula 3.0 05/22/19 06:00 101 19 115/77 (90) 05/22/19 04:00 96.7 96.7 Physical Exam Physical Exam GENERAL: Lying down, lethargic HEENT: Pupils equally round. Normal conjunctivae. Oropharynx pink, dry. NECK: Supple. LUNGS: Clear to auscultation. CARDIAC: S1, S2. ABDOMEN: Soft, nontender with bowel sounds present. : Sánchez EXTREMITIES: No gross edema or cyanosis. SKIN: Warm to touch. No signs of rash. NEUROLOGIC: lethargic, moves all ext PIV General: Alert, Cooperative, No acute distress Heart: Regular rate (SR), Normal S1, Normal S2, Other (distant heart sounds) Lungs: Clear Abdomen: Normal bowel sounds, Soft, No tenderness Extremities: No clubbing, No cyanosis, No edema Skin: No rashes, No breakdown, No significant lesion Labs LABS : 1945 LOCATION: 1 [facility] AGE: 73 SEX: F EXAM STATUS: ADM IN ORD. PHYSICIAN: DONTRELL NEWTON MD REASON: dropping hbg, coffee ground emesis, dark red stool, GS knows PROCEDURE: GI BLEED GI bleeding study. HISTORY: Decreased hemoglobin, coffee-ground emesis, dark red stool GI bleeding study was done using 25 mCi technetium 99 UltraTag red blood cells. Imaging was carried out for 58 minutes. Initial flow images are unremarkable. There is normal liver and spleen activity. There is normal cardiac activity. There is no abnormal activity in the abdomen. An acute GI bleed was not demonstrated. There is mild bladder activity by the end of the study. IMPRESSION: 1. GI bleeding study negative for an acute bleed. Electronically signed by: Eran Garcia MD (05/21/2019 11:59 PM) [facility] SPEC #: [id number] JEREMY: 05/15/19 STATUS: COMP REQ #: [id number] RECD: 05/15/[address] [facility] [address]: LC CLAY Jr. DO SOURCE: BLOOD ENTR: 05/15/[address] [facility] [address]: CLAY SOSA [facility]: ORDERED: BCULT Procedure Result - BLOOD CULTURE Final GRAM POSITIVE COCCI IN CLUSTERS, SUGGESTIVE OF STAPH, IN 2 OF 2 BOTTLES, ONE SET DRAWN. CALLED TO TEMI JUAREZ RN ON 6S AT 14:40 ON 05/16/19 DW MT SENT TO LAB [facility] FOR FURTHER WORKUP. Laboratory Tests Test 05/21/19 18:05 05/21/19 18:30 05/21/19 22:20 05/22/19 01:55 White Blood Count 17.5 x10^3/uL (4.0-11.0) 15.3 x10^3/uL (4.0-11.0) Red Blood Count 3.44 x10^6/uL (3.50-5.40) 3.33 x10^6/uL (3.50-5.40) Hemoglobin 10.5 g/dL (12.0-15.5) 10.1 g/dL (12.0-15.5) Hematocrit 32.3 % (36.0-47.0) 30.8 % (36.0-47.0) Mean Corpuscular Volume 94 fL (79-100) 93 fL (79-100) Mean Corpuscular Hemoglobin 31 pg (25-35) 30 pg (25-35) Mean Corpuscular Hemoglobin Concent 33 g/dL (31-37) 33 g/dL (31-37) Red Cell Distribution Width 15.7 % (11.5-14.5) 15.2 % (11.5-14.5) Platelet Count 176 x10^3/uL (140-400) 52 x10^3/uL (140-400) Sodium Level 135 mmol/L (136-145) Potassium Level 4.0 mmol/L (3.5-5.1) Chloride Level 100 mmol/L (98-107) Carbon Dioxide Level 24 mmol/L (21-32) Anion Gap 11 (6-14) Blood Urea Nitrogen 52 mg/dL (7-20) Creatinine 1.5 mg/dL (0.6-1.0) Estimated GFR (Cockcroft-Gault) 33.9 Glucose Level 161 mg/dL (70-99) Calcium Level 8.0 mg/dL (8.5-10.1) O2 Saturation 95 % (92-99) Arterial Blood pH 7.44 (7.35-7.45) Arterial Blood pCO2 at Patient Temp 31 mmHg (35-46) Arterial Blood pO2 at Patient Temp 77 mmHg (65-108) Arterial Blood HCO3 20 mmol/L (21-28) Arterial Blood Base Excess -3 mmol/L (-3-3) FiO2 32 Lactic Acid Level 3.4 mmol/L (0.4-2.0) 3.2 mmol/L (0.4-2.0) Test 05/22/19 04:25 White Blood Count 14.0 x10^3/uL (4.0-11.0) Red Blood Count 3.29 x10^6/uL (3.50-5.40) Hemoglobin 9.9 g/dL (12.0-15.5) Hematocrit 30.5 % (36.0-47.0) Mean Corpuscular Volume 93 fL (79-100) Mean Corpuscular Hemoglobin 30 pg (25-35) Mean Corpuscular Hemoglobin Concent 32 g/dL (31-37) Red Cell Distribution Width 15.6 % (11.5-14.5) Platelet Count 147 x10^3/uL (140-400) Neutrophils (%) (Auto) 86 % (31-73) Lymphocytes (%) (Auto) 9 % (24-48) Monocytes (%) (Auto) 5 % (0-9) Eosinophils (%) (Auto) 0 % (0-3) Basophils (%) (Auto) 0 % (0-3) Neutrophils # (Auto) 12.0 x10^3/uL (1.8-7.7) Lymphocytes # (Auto) 1.2 x10^3/uL (1.0-4.8) Monocytes # (Auto) 0.7 x10^3/uL (0.0-1.1) Eosinophils # (Auto) 0.0 x10^3/uL (0.0-0.7) Basophils # (Auto) 0.0 x10^3/uL (0.0-0.2) Sodium Level 137 mmol/L (136-145) Potassium Level 3.4 mmol/L (3.5-5.1) Chloride Level 101 mmol/L (98-107) Carbon Dioxide Level 26 mmol/L (21-32) Anion Gap 10 (6-14) Blood Urea Nitrogen 55 mg/dL (7-20) Creatinine 1.3 mg/dL (0.6-1.0) Estimated GFR (Cockcroft-Gault) 39.9 Glucose Level 137 mg/dL (70-99) Calcium Level 7.7 mg/dL (8.5-10.1) Assessment and Plan Assessmemt and Plan Problems Medical Problems: (1) Elevated troponin Status: Acute (2) Left lower lobe pneumonia Status: Acute Comment Review of Relevant I have reviewed the following items anuel (where applicable) has been applied. Labs Laboratory Tests Test 05/21/19 05:55 05/21/19 18:05 05/21/19 18:30 05/21/19 22:20 White Blood Count 15.9 x10^3/uL (4.0-11.0) 17.5 x10^3/uL (4.0-11.0) 15.3 x10^3/uL (4.0-11.0) Red Blood Count 3.91 x10^6/uL (3.50-5.40) 3.44 x10^6/uL (3.50-5.40) 3.33 x10^6/uL (3.50-5.40) Hemoglobin 11.9 g/dL (12.0-15.5) 10.5 g/dL (12.0-15.5) 10.1 g/dL (12.0-15.5) Hematocrit 36.0 % (36.0-47.0) 32.3 % (36.0-47.0) 30.8 % (36.0-47.0) Mean Corpuscular Volume 92 fL (79-100) 94 fL (79-100) 93 fL (79-100) Mean Corpuscular Hemoglobin 31 pg (25-35) 31 pg (25-35) 30 pg (25-35) Mean Corpuscular Hemoglobin Concent 33 g/dL (31-37) 33 g/dL (31-37) 33 g/dL (31-37) Red Cell Distribution Width 15.7 % (11.5-14.5) 15.7 % (11.5-14.5) 15.2 % (11.5-14.5) Platelet Count 192 x10^3/uL (140-400) 176 x10^3/uL (140-400) 52 x10^3/uL (140-400) Neutrophils (%) (Auto) 90 % (31-73) Lymphocytes (%) (Auto) 6 % (24-48) Monocytes (%) (Auto) 4 % (0-9) Eosinophils (%) (Auto) 0 % (0-3) Basophils (%) (Auto) 0 % (0-3) Neutrophils # (Auto) 14.2 x10^3/uL (1.8-7.7) Lymphocytes # (Auto) 0.9 x10^3/uL (1.0-4.8) Monocytes # (Auto) 0.7 x10^3/uL (0.0-1.1) Eosinophils # (Auto) 0.0 x10^3/uL (0.0-0.7) Basophils # (Auto) 0.0 x10^3/uL (0.0-0.2) Sodium Level 135 mmol/L (136-145) 135 mmol/L (136-145) Potassium Level 3.5 mmol/L (3.5-5.1) 4.0 mmol/L (3.5-5.1) Chloride Level 98 mmol/L (98-107) 100 mmol/L (98-107) Carbon Dioxide Level 26 mmol/L (21-32) 24 mmol/L (21-32) Anion Gap 11 (6-14) 11 (6-14) Blood Urea Nitrogen 41 mg/dL (7-20) 52 mg/dL (7-20) Creatinine 1.2 mg/dL (0.6-1.0) 1.5 mg/dL (0.6-1.0) Estimated GFR (Cockcroft-Gault) 43.8 33.9 Glucose Level 149 mg/dL (70-99) 161 mg/dL (70-99) Calcium Level 8.3 mg/dL (8.5-10.1) 8.0 mg/dL (8.5-10.1) O2 Saturation 95 % (92-99) Arterial Blood pH 7.44 (7.35-7.45) Arterial Blood pCO2 at Patient Temp 31 mmHg (35-46) Arterial Blood pO2 at Patient Temp 77 mmHg (65-108) Arterial Blood HCO3 20 mmol/L (21-28) Arterial Blood Base Excess -3 mmol/L (-3-3) FiO2 32 Lactic Acid Level 3.4 mmol/L (0.4-2.0) Test 05/22/19 01:55 05/22/19 04:25 Lactic Acid Level 3.2 mmol/L (0.4-2.0) White Blood Count 14.0 x10^3/uL (4.0-11.0) Red Blood Count 3.29 x10^6/uL (3.50-5.40) Hemoglobin 9.9 g/dL (12.0-15.5) Hematocrit 30.5 % (36.0-47.0) Mean Corpuscular Volume 93 fL (79-100) Mean Corpuscular Hemoglobin 30 pg (25-35) Mean Corpuscular Hemoglobin Concent 32 g/dL (31-37) Red Cell Distribution Width 15.6 % (11.5-14.5) Platelet Count 147 x10^3/uL (140-400) Neutrophils (%) (Auto) 86 % (31-73) Lymphocytes (%) (Auto) 9 % (24-48) Monocytes (%) (Auto) 5 % (0-9) Eosinophils (%) (Auto) 0 % (0-3) Basophils (%) (Auto) 0 % (0-3) Neutrophils # (Auto) 12.0 x10^3/uL (1.8-7.7) Lymphocytes # (Auto) 1.2 x10^3/uL (1.0-4.8) Monocytes # (Auto) 0.7 x10^3/uL (0.0-1.1) Eosinophils # (Auto) 0.0 x10^3/uL (0.0-0.7) Basophils # (Auto) 0.0 x10^3/uL (0.0-0.2) Sodium Level 137 mmol/L (136-145) Potassium Level 3.4 mmol/L (3.5-5.1) Chloride Level 101 mmol/L (98-107) Carbon Dioxide Level 26 mmol/L (21-32) Anion Gap 10 (6-14) Blood Urea Nitrogen 55 mg/dL (7-20) Creatinine 1.3 mg/dL (0.6-1.0) Estimated GFR (Cockcroft-Gault) 39.9 Glucose Level 137 mg/dL (70-99) Calcium Level 7.7 mg/dL (8.5-10.1) Laboratory Tests Test 05/21/19 18:05 05/21/19 18:30 05/21/19 22:20 05/22/19 01:55 White Blood Count 17.5 x10^3/uL (4.0-11.0) 15.3 x10^3/uL (4.0-11.0) Red Blood Count 3.44 x10^6/uL (3.50-5.40) 3.33 x10^6/uL (3.50-5.40) Hemoglobin 10.5 g/dL (12.0-15.5) 10.1 g/dL (12.0-15.5) Hematocrit 32.3 % (36.0-47.0) 30.8 % (36.0-47.0) Mean Corpuscular Volume 94 fL (79-100) 93 fL (79-100) Mean Corpuscular Hemoglobin 31 pg (25-35) 30 pg (25-35) Mean Corpuscular Hemoglobin Concent 33 g/dL (31-37) 33 g/dL (31-37) Red Cell Distribution Width 15.7 % (11.5-14.5) 15.2 % (11.5-14.5) Platelet Count 176 x10^3/uL (140-400) 52 x10^3/uL (140-400) Sodium Level 135 mmol/L (136-145) Potassium Level 4.0 mmol/L (3.5-5.1) Chloride Level 100 mmol/L (98-107) Carbon Dioxide Level 24 mmol/L (21-32) Anion Gap 11 (6-14) Blood Urea Nitrogen 52 mg/dL (7-20) Creatinine 1.5 mg/dL (0.6-1.0) Estimated GFR (Cockcroft-Gault) 33.9 Glucose Level 161 mg/dL (70-99) Calcium Level 8.0 mg/dL (8.5-10.1) O2 Saturation 95 % (92-99) Arterial Blood pH 7.44 (7.35-7.45) Arterial Blood pCO2 at Patient Temp 31 mmHg (35-46) Arterial Blood pO2 at Patient Temp 77 mmHg (65-108) Arterial Blood HCO3 20 mmol/L (21-28) Arterial Blood Base Excess -3 mmol/L (-3-3) FiO2 32 Lactic Acid Level 3.4 mmol/L (0.4-2.0) 3.2 mmol/L (0.4-2.0) Test 05/22/19 04:25 White Blood Count 14.0 x10^3/uL (4.0-11.0) Red Blood Count 3.29 x10^6/uL (3.50-5.40) Hemoglobin 9.9 g/dL (12.0-15.5) Hematocrit 30.5 % (36.0-47.0) Mean Corpuscular Volume 93 fL (79-100) Mean Corpuscular Hemoglobin 30 pg (25-35) Mean Corpuscular Hemoglobin Concent 32 g/dL (31-37) Red Cell Distribution Width 15.6 % (11.5-14.5) Platelet Count 147 x10^3/uL (140-400) Neutrophils (%) (Auto) 86 % (31-73) Lymphocytes (%) (Auto) 9 % (24-48) Monocytes (%) (Auto) 5 % (0-9) Eosinophils (%) (Auto) 0 % (0-3) Basophils (%) (Auto) 0 % (0-3) Neutrophils # (Auto) 12.0 x10^3/uL (1.8-7.7) Lymphocytes # (Auto) 1.2 x10^3/uL (1.0-4.8) Monocytes # (Auto) 0.7 x10^3/uL (0.0-1.1) Eosinophils # (Auto) 0.0 x10^3/uL (0.0-0.7) Basophils # (Auto) 0.0 x10^3/uL (0.0-0.2) Sodium Level 137 mmol/L (136-145) Potassium Level 3.4 mmol/L (3.5-5.1) Chloride Level 101 mmol/L (98-107) Carbon Dioxide Level 26 mmol/L (21-32) Anion Gap 10 (6-14) Blood Urea Nitrogen 55 mg/dL (7-20) Creatinine 1.3 mg/dL (0.6-1.0) Estimated GFR (Cockcroft-Gault) 39.9 Glucose Level 137 mg/dL (70-99) Calcium Level 7.7 mg/dL (8.5-10.1) Microbiology 05/17/19 Blood Culture - Preliminary, Resulted NO GROWTH AFTER 4 DAYS Medications Current Medications Sodium Chloride 1,000 ml @ 1,000 mls/hr Q1H IV Last administered on 05/15/19 19:13; Start 05/15/19 at 18:30; Stop 05/15/19 at 19:29; Status DC Ceftriaxone Sodium (Rocephin) 1 gm 1X ONCE IVP Last administered on 05/15/19 19:59; Start 05/15/19 at 20:00; Stop 05/15/19 at 20:01; Status DC Azithromycin (Zithromax) 500 mg 1X ONCE PO Last administered on 05/15/19 19:59; Start 05/15/19 at 20:00; Stop 05/15/19 at 20:01; Status DC Sodium Chloride 1,000 ml @ 100 mls/hr Q10H IV Last administered on 05/16/19 13:08; Start 05/15/19 at 20:30; Stop 05/16/19 at 20:29; Status DC Acetaminophen (Tylenol) 650 mg PRN Q4HRS PRN PO FEVER; Start 05/15/19 at 20:15; Stop 05/16/19 at 20:14; Status DC Albuterol/ Ipratropium (Duoneb) 3 ml RTQID NEB Last administered on 05/17/19 19:32; Start 05/15/19 at 20:30; Stop 05/17/19 at 20:29; Status DC Magnesium Sulfate/ Dextrose 100 ml @ 25 mls/hr 1X ONCE IV Last administered on 05/16/19 13:08; Start 05/16/19 at 13:00; Stop 05/16/19 at 16:59; Status DC Ceftriaxone Sodium (Rocephin) 1 gm Q24H IVP Last administered on 05/16/19at 20:05; Start 05/16/19 at 20:00; Stop 05/17/19 at 12:27; Status DC Albuterol Sulfate (Ventolin Neb Soln) 2.5 mg RTQID NEB Last administered on 05/22/19at 07:17; Start 05/16/19 at 16:00 Albuterol Sulfate (Ventolin Neb Soln) 2.5 mg PRN Q2HR PRN NEB DYSPNEA; Start 05/16/19 at 15:30 Doxycycline Hyclate (Vibra-Tab) 100 mg BID PO Last administered on 05/21/19at 08:57; Start 05/16/19 at 21:00; Stop 05/21/19 at 13:34; Status DC Vancomycin HCl (Vanco Per Pharmacy) 1 each PRN DAILY PRN MC SEE COMMENTS Last administered on 05/19/19at 11:20; Start 05/16/19 at 16:00; Stop 05/19/19 at 11:25; Status DC Vancomycin HCl 1.25 gm/Sodium Chloride 250 ml @ 166.667 mls/hr 1X ONCE IV Last administered on 05/16/19at 17:44; Start 05/16/19 at 16:30; Stop 05/16/19 at 17:59; Status DC Vancomycin HCl 750 mg/Sodium Chloride 250 ml @ 250 mls/hr Q24H IV Last admini stered on 05/18/19at 17:40; Start 05/17/19 at 18:00; Stop 05/19/19 at 00:55; Status DC Vancomycin HCl (Vancomycin Trough Level) 1 each 1X ONCE MC Last administered on 05/18/19at 21:04; Start 05/18/19 at 20:30; Stop 05/19/19 at 11:20; Status DC Potassium Chloride (Klor-Con) 40 meq 1X ONCE PO Last administered on 05/17/19at 05:54; Start 05/17/19 at 05:15; Stop 05/17/19 at 05:16; Status DC Lactobacillus Rhamnosus (Culturelle) 1 cap BID PO Last administered on 05/21/19at 08:57; Start 05/17/19 at 21:00 Piperacillin Sod/ Tazobactam Sod 3.375 gm/Sodium Chloride 50 ml @ 100 mls/hr Q6HRS IV Last administered on 05/21/19at 05:31; Start 05/17/19 at 13:00; Stop 05/21/19 at 13:34; Status DC Lorazepam (Ativan Inj) 2 mg PRN Q6HRS PRN IV ANXIETY / AGITATION Last administered on 05/20/19at 23:02; Start 05/17/19 at 18:30 Vancomycin HCl (Vancomycin Trough Level) 1 each 1X ONCE MC ; Start 05/19/19 at 17:30; Stop 05/19/19 at 17:31; Status Cancel Vancomycin HCl 750 mg/Sodium Chloride 250 ml @ 250 mls/hr Q24H IV ; Start 05/19/19 at 18:00; Stop 05/19/19 at 11:20; Status DC Amino Acids/ Glycerin/ Electrolytes 1,000 ml @ 100 mls/hr Q10H IV Last administered on 05/21/19at 09:56; Start 05/19/19 at 17:00; Stop 05/21/19 at 18:11; Status DC Ondansetron HCl (Zofran) 4 mg PRN Q6HRS PRN IV NAUSEA/VOMITING 1ST CHOICE Last administered on 05/20/19at 16:40; Start 05/19/19 at 22:30 Sodium Chloride 500 ml @ 500 mls/hr 1X ONCE IV Last administered on 05/21/19at 12:37; Start 05/21/19 at 12:30; Stop 05/21/19 at 13:29; Status DC Amoxicillin/ Clavulanate Potassium (Augmentin 875/ 125mg) 1 tab BID PO ; Start 05/21/19 at 21:00; Stop 05/21/19 at 20:28; Status DC Linezolid (Zyvox) 600 mg BID PO ; Start 05/21/19 at 21:00; Stop 05/21/19 at 21:26; Status DC Pantoprazole Sodium (Protonix) 40 mg DAILYAC PO ; Start 05/22/19 at 07:30 Pantoprazole Sodium 80 mg/ Sodium Chloride 100 ml @ 10 mls/hr Q10H IV Last administered on 05/22/19at 04:08; Start 05/21/19 at 18:30 Sodium Chloride 1,000 ml @ 100 mls/hr Q10H IV Last administered on 05/22/19at 04:27; Start 05/21/19 at 18:15 Sodium Chloride 1,000 ml @ 1,380 mls/hr Q44M IV Last administered on 05/22/19at 00:39; Start 05/21/19 at 20:15; Stop 05/21/19 at 21:15; Status DC Norepinephrine Bitartrate 250 ml @ 10.828 mls/ hr CONT PRN IV SEE I/O RECORD Last administered on 05/21/19at 22:35; Start 05/21/19 at 20:15 Piperacillin Sod/ Tazobactam Sod 3.375 gm/Sodium Chloride 50 ml @ 100 mls/hr Q6HRS IV Last administered on 05/22/19at 06:15; Start 05/22/19 at 00:00 Linezolid/Dextrose 300 ml @ 300 mls/hr Q12HR IV Last administered on 05/21/19at 21:23; Start 05/21/19 at 21:00 Heparin Sodium (Porcine) (HEPARIN for NUC MED) 100 unit 1X ONCE IV ; Start 05/21/19 at 21:45; Stop 05/21/19 at 21:48; Status DC Vancomycin HCl (Vanco Per Pharmacy) 1 each PRN DAILY PRN MC SEE COMMENTS; Start 05/22/19 at 07:30; Status UNV Piperacillin Sod/ Tazobactam Sod 3.375 gm/Sodium Chloride 50 ml @ 100 mls/hr Q6HRS IV ; Start 05/22/19 at 12:00; Status UNV Vitals/I & O Vital Sign - Last 24 Hours 05/21/19 05/21/19 05/21/19 05/21/19 11:29 11:59 15:00 15:32 Temp 98.3 98.4 98.3 98.4 Pulse 111 105 Resp 18 18 B/P (MAP) 84/64 (71) 100/59 (73) Pulse Ox 93 91 93 O2 Delivery Room Air Room Air Room Air Room Air 05/21/19 05/21/19 05/21/19 05/21/19 19:00 20:00 20:00 20:17 Temp 96.9 96.9 Pulse 103 105 Resp 18 18 B/P (MAP) 78/57 (64) 86/43 (57) Pulse Ox 97 98 98 O2 Delivery Nasal Cannula Nasal Cannula Room Air Nasal Cannula O2 Flow Rate 3.0 3.0 3.0 3.0 9/405/21/19 05/21/19 05/21/19 21:00 22:00 22:46 23:00 Pulse 110 104 103 118 Resp 18 18 18 20 B/P (MAP) 78/54 (62) 80/52 (61) 101/78 (86) 85/59 (68) Pulse Ox 98 98 98 99 O2 Delivery Nasal Cannula Nasal Cannula Nasal Cannula Nasal Cannula O2 Flow Rate 3.0 3.0 3.0 3.0 05/21/19 05/22/19 05/22/19 05/22/19 23:59 00:00 04:00 04:00 Temp 96.0 96.7 96.0 96.7 Pulse 106 101 Resp 22 15 B/P (MAP) 95/75 (82) 90/64 (73) Pulse Ox 100 95 O2 Delivery Room Air Nasal Cannula Room Air Nasal Cannula O2 Flow Rate 3.0 3.0 3.0 3.0 05/22/19 05/22/19 05/22/19 05:00 06:00 07:17 Pulse 98 101 Resp 19 B/P (MAP) 96/64 (75) 115/77 (90) Pulse Ox 98 99 95 O2 Delivery Nasal Cannula Nasal Cannula Nasal Cannula O2 Flow Rate 3.0 3.0 3.0 Intake and Output 05/21/19 05/21/19 05/22/19 15:00 23:00 07:00 Intake Total 0 ml 300 ml 2859.5 ml Output Total 660 ml 205 ml Balance 0 ml -360 ml 2654.5 ml Nutrition Consultation Dietary Evaluation: Recommendations by RD: PPN/TPN Comments: Pt not eating, encourage po intake, offer supplements and snacks from unit prn PPN @ 100 ml/hr, would continue until po intake improves Expected Outcomes/Goals: improved po intake Malnutrition Findings: Food and Nutrition Intake (Sev: <50% est energy req 5days Weight Status: Appropriate DONTRELL NEWTON MD May 22, 2019 08:37
[2019-05-22] MEDS: LACTOBACILLUS RHAMNOSUS GG 1 CAPSULE. PO SCH (09:00)
--- NOTE | 2019-05-22 09:54 | EKG ---
[facility] [address] [place] [address] Test Date: 2019-05-22 Test Time: 08:17:46 Pat Name: THA CH Department: Room: 6 Gender: F Official Greeter: JOAQUINA : 1945 Requested By: JUDY UNDERWOOD Order Number: [id number] Reading MD: Measurements Intervals [place] Rate: 97 P: 59 CO: 160 QRS: 27 QRSD: 78 T: 152 QT: 382 QTc: 490 Interpretive Statements SINUS RHYTHM ATRIAL PREMATURE COMPLEX(ES) LOW VOLTAGE QRS(T) CONTOUR ABNORMALITY CONSISTENT WITH INFERIOR INFARCT PROBABLY OLD T ABNORMALITY IN ANTERIOR LEADS ABNORMAL ECG RI6.01 Unconfirmed report Compared to ECG 05/16/2019 11:30:41 Myocardial infarct finding now present T-wave abnormality now present
--- NOTE | 2019-05-22 10:04 | PDOC ---
Objective: Objective: D/w nurse and Pat/PC, reviewed nursing notes - transferred to ICU w/ coffee- ground emesis and dark stools w/ clots - no recurrent bleeding in ICU. Meeting w/ daughter this morning. Vital Signs: Vital Signs Date Time Temp Pulse Resp B/P (MAP) Pulse Ox O2 Delivery O2 Flow Rate FiO2 05/22/19 07:17 95 Nasal Cannula 3.0 05/22/19 06:00 101 19 115/77 (90) 05/22/19 04:00 96.7 96.7 Labs: Laboratory Tests Test 05/21/19 18:05 05/21/19 18:30 05/21/19 22:20 05/22/19 01:55 White Blood Count 17.5 x10^3/uL 15.3 x10^3/uL Red Blood Count 3.44 x10^6/uL 3.33 x10^6/uL Hemoglobin 10.5 g/dL 10.1 g/dL Hematocrit 32.3 % 30.8 % Mean Corpuscular Volume 94 fL 93 fL Mean Corpuscular Hemoglobin 31 pg 30 pg Mean Corpuscular Hemoglobin Concent 33 g/dL 33 g/dL Red Cell Distribution Width 15.7 % 15.2 % Platelet Count 176 x10^3/uL 52 x10^3/uL Sodium Level 135 mmol/L Potassium Level 4.0 mmol/L Chloride Level 100 mmol/L Carbon Dioxide Level 24 mmol/L Anion Gap 11 Blood Urea Nitrogen 52 mg/dL Creatinine 1.5 mg/dL Estimated GFR (Cockcroft-Gault) 33.9 Glucose Level 161 mg/dL Calcium Level 8.0 mg/dL O2 Saturation 95 % Arterial Blood pH 7.44 Arterial Blood pCO2 at Patient Temp 31 mmHg Arterial Blood pO2 at Patient Temp 77 mmHg Arterial Blood HCO3 20 mmol/L Arterial Blood Base Excess -3 mmol/L FiO2 32 Lactic Acid Level 3.4 mmol/L 3.2 mmol/L Test 05/22/19 04:25 White Blood Count 14.0 x10^3/uL Red Blood Count 3.29 x10^6/uL Hemoglobin 9.9 g/dL Hematocrit 30.5 % Mean Corpuscular Volume 93 fL Mean Corpuscular Hemoglobin 30 pg Mean Corpuscular Hemoglobin Concent 32 g/dL Red Cell Distribution Width 15.6 % Platelet Count 147 x10^3/uL Neutrophils (%) (Auto) 86 % Lymphocytes (%) (Auto) 9 % Monocytes (%) (Auto) 5 % Eosinophils (%) (Auto) 0 % Basophils (%) (Auto) 0 % Neutrophils # (Auto) 12.0 x10^3/uL Lymphocytes # (Auto) 1.2 x10^3/uL Monocytes # (Auto) 0.7 x10^3/uL Eosinophils # (Auto) 0.0 x10^3/uL Basophils # (Auto) 0.0 x10^3/uL Sodium Level 137 mmol/L Potassium Level 3.4 mmol/L Chloride Level 101 mmol/L Carbon Dioxide Level 26 mmol/L Anion Gap 10 Blood Urea Nitrogen 55 mg/dL Creatinine 1.3 mg/dL Estimated GFR (Cockcroft-Gault) 39.9 Glucose Level 137 mg/dL Calcium Level 7.7 mg/dL Imaging: GI Bleed Scan 05/21 IMPRESSION: 1. GI bleeding study negative for an acute bleed. PE: GEN: under warming blanket LUNGS: NC 3L HEART: mildly tachycardic ABD: NABS, S/ND/NT NEURO/PSYCH: awake, mumbles a few words A/P: Coffee-ground emesis, dark stools Dementia -- ?UGI bleeding - Hgb drifting, BUN rising. Will tentatively plan for EGD this afternoon pending palliative discussion. ROSIE MAYA May 22, 2019 10:04
--- NOTE | 2019-05-22 11:32 | PDOC2 ---
PALLIATIVE CARE Palliative Care Note Palliative Care 0700 Patient does not respond to verbal /tactile stimulation Last evening events noted; vomited coffee ground emesis, blood in stool.;; Bleeding scan negative. No new bleeding this am. Off Levophed now. Called annemarie Barrios at 0730. Met with daughter and her . Reviewed current medical condition and events of last evening; Hypotension Lactic acidosis GI bleed GPC bacteremia from 05/15. coag neg staph,, likely contaminant Pneumonia Pulmonary nodules Leukocytosis BUTCH - improved Encephalopathy Family shared patient had been declining significantly over the last 6 months---more rapid in the last month. ADL's; "not bathing herself, poor appetite, not getting out of bed much" C/O being tired and dizzy. Patient had never shared what she would want if she become seriously ill. Discussed options for care; Continue current aggressive care vs comfort care vs. limitations of aggressive care Discussed Code Status; Daughter requests DNR/DNI. Understands without this attempt she live would . Outside the Hospital DNR/DNI formed signed. Daughter would like to focus more on comfort; "No suffering" She would like to talk with GI doctor before making final decision about EGD that is scheduled for 1400 Patient had been accepted at [facility] for rehab. Discussed nursing home care with hospice. Daughter would like IP Hospice evaluation at [place]. Discussed with Dr. Gardner. Order received. Reviewed with family and Natalya PALACIOS. 1410 Spoke with [facility]. Does not qualify for IP Hospice. No aggressive symptom management needed. Spoke with Natalya PALACIOS. Will discuss again with family other options. CHRISTY PASTRANA May 22, 2019 11:32
--- NOTE | 2019-05-22 11:49 | NUR ---
SS following up with discharge planning. Pt transferred from med surg floor. SS discussed with Reginald HYLTON. Palliative Care consulted and met with family. Family requesting inpatient hospice at [facility], ; fax [phone]. SS phoned and faxed referral. SS will await acceptance decision and will proceed accordingly with discharge planning.
--- NOTE | 2019-05-22 11:53 | PDOC ---
PULMONARY PROGRESS NOTES Subjective transferred to ICU w/ coffee-ground emesis and dark stools w/ clots - no recurrent bleeding in ICU. Vitals Vital Signs Date Time Temp Pulse Resp B/P (MAP) Pulse Ox O2 Delivery O2 Flow Rate FiO2 05/22/19 11:27 93 Nasal Cannula 3.0 05/22/19 11:00 94 16 89/59 (69) 05/22/19 08:00 97.3 97.3 General: Lethargic Lungs: Clear Cardiovascular: S1, S2 Abdomen: Soft Neuro Exam: Alert Extremities: Other (edema) Skin: Warm Labs Laboratory Tests Test 05/21/19 05:55 05/21/19 18:05 05/21/19 18:30 05/21/19 22:20 White Blood Count 15.9 x10^3/uL (4.0-11.0) 17.5 x10^3/uL (4.0-11.0) 15.3 x10^3/uL (4.0-11.0) Red Blood Count 3.91 x10^6/uL (3.50-5.40) 3.44 x10^6/uL (3.50-5.40) 3.33 x10^6/uL (3.50-5.40) Hemoglobin 11.9 g/dL (12.0-15.5) 10.5 g/dL (12.0-15.5) 10.1 g/dL (12.0-15.5) Hematocrit 36.0 % (36.0-47.0) 32.3 % (36.0-47.0) 30.8 % (36.0-47.0) Mean Corpuscular Volume 92 fL (79-100) 94 fL (79-100) 93 fL (79-100) Mean Corpuscular Hemoglobin 31 pg (25-35) 31 pg (25-35) 30 pg (25-35) Mean Corpuscular Hemoglobin Concent 33 g/dL (31-37) 33 g/dL (31-37) 33 g/dL (31-37) Red Cell Distribution Width 15.7 % (11.5-14.5) 15.7 % (11.5-14.5) 15.2 % (11.5-14.5) Platelet Count 192 x10^3/uL (140-400) 176 x10^3/uL (140-400) 52 x10^3/uL (140-400) Neutrophils (%) (Auto) 90 % (31-73) Lymphocytes (%) (Auto) 6 % (24-48) Monocytes (%) (Auto) 4 % (0-9) Eosinophils (%) (Auto) 0 % (0-3) Basophils (%) (Auto) 0 % (0-3) Neutrophils # (Auto) 14.2 x10^3/uL (1.8-7.7) Lymphocytes # (Auto) 0.9 x10^3/uL (1.0-4.8) Monocytes # (Auto) 0.7 x10^3/uL (0.0-1.1) Eosinophils # (Auto) 0.0 x10^3/uL (0.0-0.7) Basophils # (Auto) 0.0 x10^3/uL (0.0-0.2) Sodium Level 135 mmol/L (136-145) 135 mmol/L (136-145) Potassium Level 3.5 mmol/L (3.5-5.1) 4.0 mmol/L (3.5-5.1) Chloride Level 98 mmol/L (98-107) 100 mmol/L (98-107) Carbon Dioxide Level 26 mmol/L (21-32) 24 mmol/L (21-32) Anion Gap 11 (6-14) 11 (6-14) Blood Urea Nitrogen 41 mg/dL (7-20) 52 mg/dL (7-20) Creatinine 1.2 mg/dL (0.6-1.0) 1.5 mg/dL (0.6-1.0) Estimated GFR (Cockcroft-Gault) 43.8 33.9 Glucose Level 149 mg/dL (70-99) 161 mg/dL (70-99) Calcium Level 8.3 mg/dL (8.5-10.1) 8.0 mg/dL (8.5-10.1) O2 Saturation 95 % (92-99) Arterial Blood pH 7.44 (7.35-7.45) Arterial Blood pCO2 at Patient Temp 31 mmHg (35-46) Arterial Blood pO2 at Patient Temp 77 mmHg (65-108) Arterial Blood HCO3 20 mmol/L (21-28) Arterial Blood Base Excess -3 mmol/L (-3-3) FiO2 32 Lactic Acid Level 3.4 mmol/L (0.4-2.0) Test 05/22/19 01:55 05/22/19 04:25 Lactic Acid Level 3.2 mmol/L (0.4-2.0) White Blood Count 14.0 x10^3/uL (4.0-11.0) Red Blood Count 3.29 x10^6/uL (3.50-5.40) Hemoglobin 9.9 g/dL (12.0-15.5) Hematocrit 30.5 % (36.0-47.0) Mean Corpuscular Volume 93 fL (79-100) Mean Corpuscular Hemoglobin 30 pg (25-35) Mean Corpuscular Hemoglobin Concent 32 g/dL (31-37) Red Cell Distribution Width 15.6 % (11.5-14.5) Platelet Count 147 x10^3/uL (140-400) Neutrophils (%) (Auto) 86 % (31-73) Lymphocytes (%) (Auto) 9 % (24-48) Monocytes (%) (Auto) 5 % (0-9) Eosinophils (%) (Auto) 0 % (0-3) Basophils (%) (Auto) 0 % (0-3) Neutrophils # (Auto) 12.0 x10^3/uL (1.8-7.7) Lymphocytes # (Auto) 1.2 x10^3/uL (1.0-4.8) Monocytes # (Auto) 0.7 x10^3/uL (0.0-1.1) Eosinophils # (Auto) 0.0 x10^3/uL (0.0-0.7) Basophils # (Auto) 0.0 x10^3/uL (0.0-0.2) Sodium Level 137 mmol/L (136-145) Potassium Level 3.4 mmol/L (3.5-5.1) Chloride Level 101 mmol/L (98-107) Carbon Dioxide Level 26 mmol/L (21-32) Anion Gap 10 (6-14) Blood Urea Nitrogen 55 mg/dL (7-20) Creatinine 1.3 mg/dL (0.6-1.0) Estimated GFR (Cockcroft-Gault) 39.9 Glucose Level 137 mg/dL (70-99) Calcium Level 7.7 mg/dL (8.5-10.1) Laboratory Tests Test 05/21/19 18:05 05/21/19 18:30 05/21/19 22:20 05/22/19 01:55 White Blood Count 17.5 x10^3/uL (4.0-11.0) 15.3 x10^3/uL (4.0-11.0) Red Blood Count 3.44 x10^6/uL (3.50-5.40) 3.33 x10^6/uL (3.50-5.40) Hemoglobin 10.5 g/dL (12.0-15.5) 10.1 g/dL (12.0-15.5) Hematocrit 32.3 % (36.0-47.0) 30.8 % (36.0-47.0) Mean Corpuscular Volume 94 fL (79-100) 93 fL (79-100) Mean Corpuscular Hemoglobin 31 pg (25-35) 30 pg (25-35) Mean Corpuscular Hemoglobin Concent 33 g/dL (31-37) 33 g/dL (31-37) Red Cell Distribution Width 15.7 % (11.5-14.5) 15.2 % (11.5-14.5) Platelet Count 176 x10^3/uL (140-400) 52 x10^3/uL (140-400) Sodium Level 135 mmol/L (136-145) Potassium Level 4.0 mmol/L (3.5-5.1) Chloride Level 100 mmol/L (98-107) Carbon Dioxide Level 24 mmol/L (21-32) Anion Gap 11 (6-14) Blood Urea Nitrogen 52 mg/dL (7-20) Creatinine 1.5 mg/dL (0.6-1.0) Estimated GFR (Cockcroft-Gault) 33.9 Glucose Level 161 mg/dL (70-99) Calcium Level 8.0 mg/dL (8.5-10.1) O2 Saturation 95 % (92-99) Arterial Blood pH 7.44 (7.35-7.45) Arterial Blood pCO2 at Patient Temp 31 mmHg (35-46) Arterial Blood pO2 at Patient Temp 77 mmHg (65-108) Arterial Blood HCO3 20 mmol/L (21-28) Arterial Blood Base Excess -3 mmol/L (-3-3) FiO2 32 Lactic Acid Level 3.4 mmol/L (0.4-2.0) 3.2 mmol/L (0.4-2.0) Test 05/22/19 04:25 White Blood Count 14.0 x10^3/uL (4.0-11.0) Red Blood Count 3.29 x10^6/uL (3.50-5.40) Hemoglobin 9.9 g/dL (12.0-15.5) Hematocrit 30.5 % (36.0-47.0) Mean Corpuscular Volume 93 fL (79-100) Mean Corpuscular Hemoglobin 30 pg (25-35) Mean Corpuscular Hemoglobin Concent 32 g/dL (31-37) Red Cell Distribution Width 15.6 % (11.5-14.5) Platelet Count 147 x10^3/uL (140-400) Neutrophils (%) (Auto) 86 % (31-73) Lymphocytes (%) (Auto) 9 % (24-48) Monocytes (%) (Auto) 5 % (0-9) Eosinophils (%) (Auto) 0 % (0-3) Basophils (%) (Auto) 0 % (0-3) Neutrophils # (Auto) 12.0 x10^3/uL (1.8-7.7) Lymphocytes # (Auto) 1.2 x10^3/uL (1.0-4.8) Monocytes # (Auto) 0.7 x10^3/uL (0.0-1.1) Eosinophils # (Auto) 0.0 x10^3/uL (0.0-0.7) Basophils # (Auto) 0.0 x10^3/uL (0.0-0.2) Sodium Level 137 mmol/L (136-145) Potassium Level 3.4 mmol/L (3.5-5.1) Chloride Level 101 mmol/L (98-107) Carbon Dioxide Level 26 mmol/L (21-32) Anion Gap 10 (6-14) Blood Urea Nitrogen 55 mg/dL (7-20) Creatinine 1.3 mg/dL (0.6-1.0) Estimated GFR (Cockcroft-Gault) 39.9 Glucose Level 137 mg/dL (70-99) Calcium Level 7.7 mg/dL (8.5-10.1) Comments CT CHEST Right lower lobe bronchitis. Minimal posterior right basilar atelectasis. Bilateral very small pulmonary nodules are present. If the patient has no significant risk factors, then no further follow-up is required. Alternatively, interval follow-up at 12 months should be considered if there are significant risk factors for lung carcinoma. Impression . 1. Abnormal x-ray compatible with pneumonia. 2. Pneumonia, suspect gram-negative. 3. Underlying dementia. 4. Toxic encephalopathy, present upon admission secondary to pneumonia. 5. Leukocytosis. 6. Renal insufficiency. 7. BACTEREMIA/ ( STAPH COAG NEG), likely contaminant 8. transferred to ICU w/ coffee-ground emesis and dark stools w/ clots - no recurrent bleeding in ICU. Plan . D/W DAUGHTER. WANTS TO GO WITH COMFORT CARE D/W PALLIATIVE CARE RESP STATUS IS COMPENSATED ANTIBX PER ID IMPROVING WBC, NO FEVER 02 CT CHEST WITH TINY 2 MM NODULES, DOES NOT NEED ANY F/U ( LOW RISK FOR MALIGNANCY) OK WITH DC TO HOSPICE D/W KOFI ALARCON MD May 22, 2019 11:53
[2019-05-22] MEDS ORDERED: PIPERACILLIN/TAZOBACTAM 3.375 GM in IV NORMAL SALINE 50ML 50 ML IV SCH (12:00)
--- NOTE | 2019-05-22 15:50 | NUR ---
SS following up with discharge planning. Pt declined for [facility]. SS discussed with Misty Webb. Pt's daughter does not have funds for LTC facility and is checking with family members in regards to possible home care. Lilia Puentes from [facility] consulted to help assist with Medicaid application for possible Medicaid pending. Lilia scheduled meeting with family in the morning. SS will continue to follow for discharge planning.
[2019-05-22] MEDS ORDERED: MORPHINE SULFATE 20 MG/ML CONC SOLUTION. SL PRN (16:00)
--- NOTE | 2019-05-22 17:02 | RAD ---
EXAM: CHEST 1 VIEW History: Pneumonia COMPARISON: 05/15/2019 TECHNIQUE: Single portable radiograph of the chest FINDINGS: The cardiac silhouette is unremarkable. Mild right basilar lung airspace opacities likely atelectasis or infiltrate. Enchondroma left proximal humerus unchanged. IMPRESSION: Mild bibasilar lung airspace opacities likely pneumonia or atelectasis. Follow-up to resolution. Electronically signed by: Abel Chaudhry MD (05/22/2019 5:00 PM) [place] [id number]
[2019-05-23 00:01] VITALS: BP 109/64
--- NOTE | 2019-05-23 00:19 | NUR ---
Report called and pt brought up to room 430. All belongings were brought with the patient and chart handed to their new nurse. Pt was transferred to a new bed in room 430 unit rules and routines explained to pt. Pt is currently stable.
--- NOTE | 2019-05-23 00:33 | NUR ---
Pt daughter Ravi Starr called and alerted of pt transfer to room 430.
[2019-05-23 03:00] VITALS: BP 109/64
[2019-05-23] MEDS: PANTOPRAZOLE 40 MG TABLET.DR. PO SCH (05:45)
[2019-05-23] MEDS: ALBUTEROL SULFATE 2.5 MG/3 ML NEBU. NEB SCH ×3 (06:57→15:11)
[2019-05-23 07:00] VITALS: BP 107/66
--- NOTE | 2019-05-23 09:40 | PDOC ---
PROGRESS NOTES Chief Complaint Chief Complaint Pneumonia - Abnormal x-ray compatible with Pneumonia, suspect gram-negative based on her medical complications she is high risk Sepsis - likely 2/2 pneumonia Dementia Toxic encephalopathy, present upon admission secondary to pneumonia. Renal insufficiency. BACTEREMIA/ ( STAPH COAG NEG), likely contaminant transferred to ICU w/ coffee-ground emesis and dark stools w/ clots - no recurrent bleeding in ICU. - GI d/w daughter, there is likely an UGIB lesion but they decline further care History of Present Illness History of Present Illness Ms Donis is a 73-year-old female w/ PMHx dementia who was brought in with complaints of generalized weakness and loss of appetite. She lives by herself and was found lying in bed by a family member. She was confused. A chest CT showed right lower lobe bronchial wall thickening and bilateral very small pulmonary nodules. She was admitted with pneumonia and was started on vancomycin, ceftriaxone and doxycycline. Blood cultures have since returned positive with Gram-positive cocci in 2 of 2 bottles and she then had a bout of coffee ground emesis and was transferred to the ICU subsequently. no recurrent bleeding in ICU. GI d/w daughter, there is likely an UGIB lesion but they decline further care Family met with palliative care yesterday and has begun a plan to discharge to hospice, comfort care. Patient is resting comfortably this morning, somewhat difficult to arouse, unaware of the day or location or plan of care. No complaints except wanting to sleep. Plan: Will start discharge planning to hospice 05/22/19 Pt seen/examined at bedside and resting weak PPN Chart reviewed panculture start iv vanc and zosyn PIHLOMENA RN last PM transferred to ICU w/ coffee-ground emesis and dark stools w/ clots - BLOOD CULTURE Final GRAM POSITIVE COCCI IN CLUSTERS, SUGGESTIVE OF STAPH, IN 2 OF 2 BOTTLES, ONE SET DRAWN. metabolic encephalopathy ID FOLLOWING 05/20/19 Pt seen/examined at bedside and resting NAD Pt states she does not want a feeding tube in the future PHILOMENA RN who states that Dr. Wade wants to keep patient and re-evaluate tomorrow due to her elevated WBC 16.5 Chart reviewed 05/19/19 Pt seen/examined at bedside Pt resting in NAD PHILOMENA RN Chart reviewed 05/18/19 Pt seen/examined at bedside with NAD Per RN patient was disruptive last night and was put on sedatives Chart Reviewed 05/17/19 Pt seen and examined at bedside Pt laying in bed with MIGEL QUACH RN who says pt's daughter has expressed difficulty in caring for pt and believes LTC is in the pt's best interest Vitals Vitals Vital Signs Date Time Temp Pulse Resp B/P (MAP) Pulse Ox O2 Delivery O2 Flow Rate FiO2 05/23/19 07:00 97.6 87 18 107/66 (80) 97 Nasal Cannula 4.0 97.6 Physical Exam Physical Exam GENERAL: Lying down, lethargic HEENT: Pupils equally round. Normal conjunctivae. Oropharynx pink, dry. NECK: Supple. LUNGS: Clear to auscultation. CARDIAC: S1, S2. ABDOMEN: Soft, nontender with bowel sounds present. : Sánchez EXTREMITIES: No gross edema or cyanosis. SKIN: Warm to touch. No signs of rash. NEUROLOGIC: lethargic, moves all ext PIV General: Alert, Cooperative, No acute distress Heart: Regular rate (SR), Normal S1, Normal S2, Other (distant heart sounds) Lungs: Clear Abdomen: Normal bowel sounds, Soft, No tenderness Extremities: No clubbing, No cyanosis, No edema Skin: No rashes, No breakdown, No significant lesion Assessment and Plan Assessmemt and Plan Problems Medical Problems: (1) Elevated troponin Status: Acute (2) Left lower lobe pneumonia Status: Acute Comment Review of Relevant I have reviewed the following items anuel (where applicable) has been applied. Labs Laboratory Tests Test 05/21/19 18:05 05/21/19 18:30 05/21/19 22:20 05/22/19 01:55 White Blood Count 17.5 x10^3/uL (4.0-11.0) 15.3 x10^3/uL (4.0-11.0) Red Blood Count 3.44 x10^6/uL (3.50-5.40) 3.33 x10^6/uL (3.50-5.40) Hemoglobin 10.5 g/dL (12.0-15.5) 10.1 g/dL (12.0-15.5) Hematocrit 32.3 % (36.0-47.0) 30.8 % (36.0-47.0) Mean Corpuscular Volume 94 fL (79-100) 93 fL (79-100) Mean Corpuscular Hemoglobin 31 pg (25-35) 30 pg (25-35) Mean Corpuscular Hemoglobin Concent 33 g/dL (31-37) 33 g/dL (31-37) Red Cell Distribution Width 15.7 % (11.5-14.5) 15.2 % (11.5-14.5) Platelet Count 176 x10^3/uL (140-400) 52 x10^3/uL (140-400) Sodium Level 135 mmol/L (136-145) Potassium Level 4.0 mmol/L (3.5-5.1) Chloride Level 100 mmol/L (98-107) Carbon Dioxide Level 24 mmol/L (21-32) Anion Gap 11 (6-14) Blood Urea Nitrogen 52 mg/dL (7-20) Creatinine 1.5 mg/dL (0.6-1.0) Estimated GFR (Cockcroft-Gault) 33.9 Glucose Level 161 mg/dL (70-99) Calcium Level 8.0 mg/dL (8.5-10.1) O2 Saturation 95 % (92-99) Arterial Blood pH 7.44 (7.35-7.45) Arterial Blood pCO2 at Patient Temp 31 mmHg (35-46) Arterial Blood pO2 at Patient Temp 77 mmHg (65-108) Arterial Blood HCO3 20 mmol/L (21-28) Arterial Blood Base Excess -3 mmol/L (-3-3) FiO2 32 Lactic Acid Level 3.4 mmol/L (0.4-2.0) 3.2 mmol/L (0.4-2.0) Test 05/22/19 04:25 White Blood Count 14.0 x10^3/uL (4.0-11.0) Red Blood Count 3.29 x10^6/uL (3.50-5.40) Hemoglobin 9.9 g/dL (12.0-15.5) Hematocrit 30.5 % (36.0-47.0) Mean Corpuscular Volume 93 fL (79-100) Mean Corpuscular Hemoglobin 30 pg (25-35) Mean Corpuscular Hemoglobin Concent 32 g/dL (31-37) Red Cell Distribution Width 15.6 % (11.5-14.5) Platelet Count 147 x10^3/uL (140-400) Neutrophils (%) (Auto) 86 % (31-73) Lymphocytes (%) (Auto) 9 % (24-48) Monocytes (%) (Auto) 5 % (0-9) Eosinophils (%) (Auto) 0 % (0-3) Basophils (%) (Auto) 0 % (0-3) Neutrophils # (Auto) 12.0 x10^3/uL (1.8-7.7) Lymphocytes # (Auto) 1.2 x10^3/uL (1.0-4.8) Monocytes # (Auto) 0.7 x10^3/uL (0.0-1.1) Eosinophils # (Auto) 0.0 x10^3/uL (0.0-0.7) Basophils # (Auto) 0.0 x10^3/uL (0.0-0.2) Sodium Level 137 mmol/L (136-145) Potassium Level 3.4 mmol/L (3.5-5.1) Chloride Level 101 mmol/L (98-107) Carbon Dioxide Level 26 mmol/L (21-32) Anion Gap 10 (6-14) Blood Urea Nitrogen 55 mg/dL (7-20) Creatinine 1.3 mg/dL (0.6-1.0) Estimated GFR (Cockcroft-Gault) 39.9 Glucose Level 137 mg/dL (70-99) Calcium Level 7.7 mg/dL (8.5-10.1) Microbiology 05/21/19 Blood Culture - Preliminary, Resulted NO GROWTH AFTER 1 DAY Medications Current Medications Sodium Chloride 1,000 ml @ 1,000 mls/hr Q1H IV Last administered on 05/15/19at 19:13; Start 05/15/19 at 18:30; Stop 05/15/19 at 19:29; Status DC Ceftriaxone Sodium (Rocephin) 1 gm 1X ONCE IVP Last administered on 05/15/19 19:59; Start 05/15/19 at 20:00; Stop 05/15/19 at 20:01; Status DC Azithromycin (Zithromax) 500 mg 1X ONCE PO Last administered on 05/15/19at 19:59; Start 05/15/19 at 20:00; Stop 05/15/19 at 20:01; Status DC Sodium Chloride 1,000 ml @ 100 mls/hr Q10H IV Last administered on 05/16/19 13:08; Start 05/15/19 at 20:30; Stop 05/16/19 at 20:29; Status DC Acetaminophen (Tylenol) 650 mg PRN Q4HRS PRN PO FEVER; Start 05/15/19 at 20:15; Stop 05/16/19 at 20:14; Status DC Albuterol/ Ipratropium (Duoneb) 3 ml RTQID NEB Last administered on 05/17/19at 19:32; Start 05/15/19 at 20:30; Stop 05/17/19 at 20:29; Status DC Magnesium Sulfate/ Dextrose 100 ml @ 25 mls/hr 1X ONCE IV Last administered on 05/16/19 13:08; Start 05/16/19 at 13:00; Stop 05/16/19 at 16:59; Status DC Ceftriaxone Sodium (Rocephin) 1 gm Q24H IVP Last administered on 05/16/19at 20:05; Start 05/16/19 at 20:00; Stop 05/17/19 at 12:27; Status DC Albuterol Sulfate (Ventolin Neb Soln) 2.5 mg RTQID NEB Last administered on 05/23/19at 06:57; Start 05/16/19 at 16:00 Albuterol Sulfate (Ventolin Neb Soln) 2.5 mg PRN Q2HR PRN NEB DYSPNEA; Start 05/16/19 at 15:30 Doxycycline Hyclate (Vibra-Tab) 100 mg BID PO Last administered on 05/21/19at 08:57; Start 05/16/19 at 21:00; Stop 05/21/19 at 13:34; Status DC Vancomycin HCl (Vanco Per Pharmacy) 1 each PRN DAILY PRN MC SEE COMMENTS Last administered on 05/19/19at 11:20; Start 05/16/19 at 16:00; Stop 05/19/19 at 11:25; Status DC Vancomycin HCl 1.25 gm/Sodium Chloride 250 ml @ 166.667 mls/hr 1X ONCE IV Last administered on 05/16/19at 17:44; Start 05/16/19 at 16:30; Stop 05/16/19 at 17:59; Status DC Vancomycin HCl 750 mg/Sodium Chloride 250 ml @ 250 mls/hr Q24H IV Last administered on 05/18/19at 17:40; Start 05/17/19 at 18:00; Stop 05/19/19 at 00:55; Status DC Vancomycin HCl (Vancomycin Trough Level) 1 each 1X ONCE MC Last administered on 05/18/19at 21:04; Start 05/18/19 at 20:30; Stop 05/19/19 at 11:20; Status DC Potassium Chloride (Klor-Con) 40 meq 1X ONCE PO Last administered on 05/17/19at 05:54; Start 05/17/19 at 05:15; Stop 05/17/19 at 05:16; Status DC Lactobacillus Rhamnosus (Culturelle) 1 cap BID PO Last administered on 05/21/19at 08:57; Start 05/17/19 at 21:00; Stop 05/22/19 at 16:06; Status DC Piperacillin Sod/ Tazobactam Sod 3.375 gm/Sodium Chloride 50 ml @ 100 mls/hr Q6HRS IV Last administered on 05/21/19at 05:31; Start 05/17/19 at 13:00; Stop 05/21/19 at 13:34; Status DC Lorazepam (Ativan Inj) 2 mg PRN Q6HRS PRN IV ANXIETY / AGITATION Last administered on 05/20/19at 23:02; Start 05/17/19 at 18:30; Stop 05/22/19 at 15:59; Status DC Vancomycin HCl (Vancomycin Trough Level) 1 each 1X ONCE MC ; Start 05/19/19 at 17:30; Stop 05/19/19 at 17:31; Status Cancel Vancomycin HCl 750 mg/Sodium Chloride 250 ml @ 250 mls/hr Q24H IV ; Start 05/19/19 at 18:00; Stop 05/19/19 at 11:20; Status DC Amino Acids/ Glycerin/ Electrolytes 1,000 ml @ 100 mls/hr Q10H IV Last administered on 05/21/19at 09:56; Start 05/19/19 at 17:00; Stop 05/21/19 at 18:11; Status DC Ondansetron HCl (Zofran) 4 mg PRN Q6HRS PRN IV NAUSEA/VOMITING 1ST CHOICE Last administered on 05/20/19at 16:40; Start 05/19/19 at 22:30 Sodium Chloride 500 ml @ 500 mls/hr 1X ONCE IV Last administered on 05/21/19at 12:37; Start 05/21/19 at 12:30; Stop 05/21/19 at 13:29; Status DC Amoxicillin/ Clavulanate Potassium (Augmentin 875/ 125mg) 1 tab BID PO ; Start 05/21/19 at 21:00; Stop 05/21/19 at 20:28; Status DC Linezolid (Zyvox) 600 mg BID PO ; Start 05/21/19 at 21:00; Stop 05/21/19 at 21:26; Status DC Pantoprazole Sodium (Protonix) 40 mg DAILYAC PO ; Start 05/22/19 at 07:30 Pantoprazole Sodium 80 mg/ Sodium Chloride 100 ml @ 10 mls/hr Q10H IV Last administered on 05/22/19at 15:39; Start 05/21/19 at 18:30; Stop 05/22/19 at 15:47; Status DC Sodium Chloride 1,000 ml @ 100 mls/hr Q10H IV Last administered on 05/22/19at 04:27; Start 05/21/19 at 18:15; Stop 05/22/19 at 16:06; Status DC Sodium Chloride 1,000 ml @ 1,380 mls/hr Q44M IV Last administered on 05/22/19at 00:39; Start 05/21/19 at 20:15; Stop 05/21/19 at 21:15; Status DC Norepinephrine Bitartrate 250 ml @ 10.828 mls/ hr CONT PRN IV SEE I/O RECORD Last administered on 05/21/19at 22:35; Start 05/21/19 at 20:15; Stop 05/22/19 at 16:06; Status DC Piperacillin Sod/ Tazobactam Sod 3.375 gm/Sodium Chloride 50 ml @ 100 mls/hr Q6HRS IV Last administered on 05/22/19at 13:02; Start 05/22/19 at 00:00; Stop 05/22/19 at 15:47; Status DC Linezolid/Dextrose 300 ml @ 300 mls/hr Q12HR IV Last administered on 05/22/19at 08:57; Start 05/21/19 at 21:00; Stop 05/22/19 at 15:47; Status DC Heparin Sodium (Porcine) (HEPARIN for NUC MED) 100 unit 1X ONCE IV ; Start 05/21/19 at 21:45; Stop 05/22/19 at 16:06; Status DC Vancomycin HCl (Vanco Per Pharmacy) 1 each PRN DAILY PRN MC SEE COMMENTS; Start 05/22/19 at 07:30; Status UNV Piperacillin Sod/ Tazobactam Sod 3.375 gm/Sodium Chloride 50 ml @ 100 mls/hr Q6HRS IV ; Start 05/22/19 at 12:00; Status UNV Morphine Sulfate (Roxanol Conc) 5 mg PRN Q2HRS PRN SL SOA/MOD-SEVERE PAIN; Start 05/22/19 at 16:00 Morphine Sulfate (Morphine Sulfate) 1 mg PRN Q2HR PRN IV SOA/PAIN; Start 05/22/19 at 16:00 Lorazepam (Ativan Inj) 2 mg PRN Q4HRS PRN IV ANXIETY / AGITATION Last administered on 05/23/19at 04:34; Start 05/22/19 at 16:00 Vitals/I & O Vital Sign - Last 24 Hours 05/22/19 05/22/19 05/22/19 05/22/19 10:00 11:00 11:27 13:00 Temp 97.3 97.3 Pulse 94 94 95 Resp 14 16 16 B/P (MAP) 93/66 (75) 89/59 (69) 80/66 (71) Pulse Ox 95 95 93 96 O2 Delivery Nasal Cannula Nasal Cannula Nasal Cannula Nasal Cannula O2 Flow Rate 2.0 2.0 3.0 3.0 05/22/19 05/22/19 05/22/19 05/22/19 15:18 16:00 19:30 20:00 Temp 97.6 97.5 97.6 97.5 Pulse 95 93 Resp 21 16 B/P (MAP) 85/61 (69) 93/58 (70) Pulse Ox 95 97 96 99 O2 Delivery Nasal Cannula Nasal Cannula Nasal Cannula Nasal Cannula O2 Flow Rate 3.0 3.0 3.0 3.0 05/22/19 05/23/19 05/23/19 05/23/19 20:00 00:01 03:00 07:00 Temp 97.4 97.7 97.4 97.7 Pulse 91 91 Resp 18 18 B/P (MAP) 109/64 (79) 109/64 (79) Pulse Ox 94 94 O2 Delivery Nasal Cannula Nasal Cannula Nasal Cannula Nasal Cannula O2 Flow Rate 2.0 3.0 3.0 3.0 05/23/19 07:00 Temp 97.6 97.6 Pulse 87 Resp 18 B/P (MAP) 107/66 (80) Pulse Ox 97 O2 Delivery Nasal Cannula O2 Flow Rate 4.0 Intake and Output 05/22/19 05/22/19 05/23/19 15:00 23:00 07:00 Intake Total 350 ml 1156 ml Output Total 200 ml 95 ml 160 ml Balance 150 ml 1061 ml -160 ml Nutrition Consultation Dietary Evaluation: Recommendations by RD: PPN/TPN Comments: Pt not eating, encourage po intake, offer supplements and snacks from unit prn PPN @ 100 ml/hr, would continue until po intake improves Expected Outcomes/Goals: improved po intake Malnutrition Findings: Food and Nutrition Intake (Sev: <50% est energy req 5days Weight Status: Appropriate FRANCINE GARVIN MD May 23, 2019 09:40
[2019-05-23 11:36] VITALS: BP 106/60
--- NOTE | 2019-05-23 11:42 | NUR ---
SS following up with discharge planning. Pt received notification from Angela at [facility], ; fax [phone], that they were still monitoring pt to see if pt has had a change of status. SS notified Dr. Melo that they were requesting an update. SS received phone contact from [facility] stating that they were able to accept pt Medicaid pending with Hospice services but have no beds available at this time. SS contacted pt's daughter and notified. SS discussed [facility] with pt's daughter. Pt's daughter agreeable to referral to [facility] with Hospice services. SS phoned and faxed referral to [facility], ; fax [phone]. Ss will await acceptance decision and will proceed accordingly with discharge planning.
[2019-05-23] MEDS: MORPHINE SULFATE 2 MG/ML VIAL. IV PRN ×2 (11:48→18:12)
--- NOTE | 2019-05-23 12:53 | PDOC ---
Objective: Objective: D/w nurse - plans for Hospice, has been NPO. Vital Signs: Vital Signs Date Time Temp Pulse Resp B/P (MAP) Pulse Ox O2 Delivery O2 Flow Rate FiO2 05/23/19 12:39 Nasal Cannula 4.0 05/23/19 11:36 97.3 87 18 106/60 (75) 100 97.3 PE: GEN: NAD NEURO/PSYCH: sleeping, not awakened A/P: Coffee-ground emesis, dark stools - no recurrence, family declined EGD Dementia -- Plans for Hospice, will sign off. ROSIE MAYA May 23, 2019 12:52
[2019-05-23] MEDS ORDERED: LORA2ORA7 SL (13:53)
[2019-05-23] MEDS ORDERED: MORP100S3 SL (13:53)
--- NOTE | 2019-05-23 13:55 | SNU/HH DC ---
DISCHARGE ORDERS DISCHARGE INFORMATION: DISCHARGE DATE: May 23, 2019 FINAL DIAGNOSIS Problems Medical Problems: (1) Elevated troponin Status: Acute (2) Left lower lobe pneumonia Status: Acute CONDITION ON DISCHARGE: Stable CODE STATUS: Code Status: DNR/DNI HOSPICE: HOSPICE: Yes HOSPICE EVAL & TREAT: Yes POST DISCHARGE ORDERS: ACTIVITY ORDERS: Resume previous activity WEIGHT BEARING STATUS: As tolerated DIET AFTER DISCHARGE: Regular CHECKS AFTER DISCHARGE: CHECKS AFTER DISCHARGE: Check blood press - daily DISCHARGE MEDICATIONS: Home Meds Active Scripts Morphine Sulfate (MORPHINE SULFATE) 100 Mg/5 Ml Solution, 5 MG SL PRN Q2HRS PRN for SOA/MOD-SEVERE PAIN for 30 Days, #1 MISC Prov:FRANCINE GARVIN MD 05/23/19 Lorazepam (LORAZEPAM INTENSOL) 2 Mg/1 Ml Oral.conc, 2 MG SL PRN Q6HRS PRN for ANXIETY / AGITATION for 30 Days, #1 MISC Prov:FRANCINE GARVIN MD 05/23/19 FRANCINE GARVIN MD May 23, 2019 13:55
[2019-05-23] MEDS ORDERED: LORazepam INTENSOL 2 MG/ML ORAL.CONC SL PRN (14:00)
--- NOTE | 2019-05-23 14:00 | PDOC3 ---
Discharge Summary Visit Information Date of Admission: May 15, 2019 Date of Discharge: May 23, 2019 Admitting Diagnosis: Left lower lobe pneumonia Final Diagnosis Problems Medical Problems: (1) Elevated troponin Status: Acute (2) Left lower lobe pneumonia Status: Acute Brief Hospital Course Allergies Allergies Coded Allergies Type Severity Reaction Last Updated Verified No Known Drug Allergies 05/15/19 No Vital Signs Vital Signs Date Time Temp Pulse Resp B/P (MAP) Pulse Ox O2 Delivery O2 Flow Rate FiO2 05/23/19 12:39 Nasal Cannula 4.0 05/23/19 11:36 97.3 87 18 106/60 (75) 100 97.3 Lab Results Laboratory Tests Test 05/21/19 18:05 05/21/19 18:30 05/21/19 22:20 05/22/19 01:55 White Blood Count 17.5 x10^3/uL (4.0-11.0) 15.3 x10^3/uL (4.0-11.0) Red Blood Count 3.44 x10^6/uL (3.50-5.40) 3.33 x10^6/uL (3.50-5.40) Hemoglobin 10.5 g/dL (12.0-15.5) 10.1 g/dL (12.0-15.5) Hematocrit 32.3 % (36.0-47.0) 30.8 % (36.0-47.0) Mean Corpuscular Volume 94 fL (79-100) 93 fL (79-100) Mean Corpuscular Hemoglobin 31 pg (25-35) 30 pg (25-35) Mean Corpuscular Hemoglobin Concent 33 g/dL (31-37) 33 g/dL (31-37) Red Cell Distribution Width 15.7 % (11.5-14.5) 15.2 % (11.5-14.5) Platelet Count 176 x10^3/uL (140-400) 52 x10^3/uL (140-400) Sodium Level 135 mmol/L (136-145) Potassium Level 4.0 mmol/L (3.5-5.1) Chloride Level 100 mmol/L (98-107) Carbon Dioxide Level 24 mmol/L (21-32) Anion Gap 11 (6-14) Blood Urea Nitrogen 52 mg/dL (7-20) Creatinine 1.5 mg/dL (0.6-1.0) Estimated GFR (Cockcroft-Gault) 33.9 Glucose Level 161 mg/dL (70-99) Calcium Level 8.0 mg/dL (8.5-10.1) O2 Saturation 95 % (92-99) Arterial Blood pH 7.44 (7.35-7.45) Arterial Blood pCO2 at Patient Temp 31 mmHg (35-46) Arterial Blood pO2 at Patient Temp 77 mmHg (65-108) Arterial Blood HCO3 20 mmol/L (21-28) Arterial Blood Base Excess -3 mmol/L (-3-3) FiO2 32 Lactic Acid Level 3.4 mmol/L (0.4-2.0) 3.2 mmol/L (0.4-2.0) Test 05/22/19 04:25 White Blood Count 14.0 x10^3/uL (4.0-11.0) Red Blood Count 3.29 x10^6/uL (3.50-5.40) Hemoglobin 9.9 g/dL (12.0-15.5) Hematocrit 30.5 % (36.0-47.0) Mean Corpuscular Volume 93 fL (79-100) Mean Corpuscular Hemoglobin 30 pg (25-35) Mean Corpuscular Hemoglobin Concent 32 g/dL (31-37) Red Cell Distribution Width 15.6 % (11.5-14.5) Platelet Count 147 x10^3/uL (140-400) Neutrophils (%) (Auto) 86 % (31-73) Lymphocytes (%) (Auto) 9 % (24-48) Monocytes (%) (Auto) 5 % (0-9) Eosinophils (%) (Auto) 0 % (0-3) Basophils (%) (Auto) 0 % (0-3) Neutrophils # (Auto) 12.0 x10^3/uL (1.8-7.7) Lymphocytes # (Auto) 1.2 x10^3/uL (1.0-4.8) Monocytes # (Auto) 0.7 x10^3/uL (0.0-1.1) Eosinophils # (Auto) 0.0 x10^3/uL (0.0-0.7) Basophils # (Auto) 0.0 x10^3/uL (0.0-0.2) Sodium Level 137 mmol/L (136-145) Potassium Level 3.4 mmol/L (3.5-5.1) Chloride Level 101 mmol/L (98-107) Carbon Dioxide Level 26 mmol/L (21-32) Anion Gap 10 (6-14) Blood Urea Nitrogen 55 mg/dL (7-20) Creatinine 1.3 mg/dL (0.6-1.0) Estimated GFR (Cockcroft-Gault) 39.9 Glucose Level 137 mg/dL (70-99) Calcium Level 7.7 mg/dL (8.5-10.1) Brief Hospital Course Ms Donis is a 73-year-old female w/ PMHx dementia who was brought in with complaints of generalized weakness and loss of appetite. She lives by herself and was found lying in bed by a family member. She was confused. A chest CT showed right lower lobe bronchial wall thickening and bilateral very small pulmonary nodules. She was admitted with pneumonia and was started on vancomycin, ceftriaxone and doxycycline. Blood cultures have since returned positive with Gram-positive cocci in 2 of 2 bottles and she then had a bout of coffee ground emesis and was transferred to the ICU subsequently. no recurrent bleeding in ICU. GI d/w daughter, there is likely an UGIB lesion but they decline further care Family met with palliative care yesterday and has begun a plan to discharge to hospice, comfort care. Patient is resting comfortably this morning, somewhat difficult to arouse, unaware of the day or location or plan of care. No complaints except wanting to sleep. Assessment: Pneumonia - Abnormal x-ray compatible with Pneumonia, suspect gram-negative based on her medical complications she is high risk Sepsis - likely 2/2 pneumonia Dementia Toxic encephalopathy, present upon admission secondary to pneumonia. Renal insufficiency. BACTEREMIA/ ( STAPH COAG NEG), likely contaminant transferred to ICU w/ coffee-ground emesis and dark stools w/ clots - no recurrent bleeding in ICU. - GI d/w daughter, there is likely an UGIB lesion but they decline further care Plan: Will start discharge planning to hospice at [facility] Greater than 30 minutes spent on d/c BLOOD CULTURE Final GRAM POSITIVE COCCI IN CLUSTERS, SUGGESTIVE OF STAPH, IN 2 OF 2 BOTTLES, ONE SET DRAWN. metabolic encephalopathy ID FOLLOWING Discharge Information Condition at Discharge: Stable Follow Up: Weeks (1) Disposition/Orders: D/C to Another Facility Scheduled PRN Lorazepam (Lorazepam Intensol) 2 Mg/1 Ml Oral.conc, 2 MG SL PRN Q6HRS PRN for ANXIETY / AGITATION for 30 Days, #1 Prescribed by: FRANCINE GRAVIN MD on 05/23/19 1353 Morphine Sulfate (Morphine Sulfate) 100 Mg/5 Ml Solution, 5 MG SL PRN Q2HRS PRN for SOA/MOD-SEVERE PAIN for 30 Days, #1 Prescribed by: FRANCINE GARVIN MD on 05/23/19 1353 FRANCINE GARVIN MD May 23, 2019 14:00
[2019-05-23 16:00] VITALS: BP 95/73
--- NOTE | 2019-05-23 16:33 | NUR ---
SS following up with discharge planning. Pt accepted at [facility], ; fax [phone]. transportation planner, Galina Napier, phoned and faxed discharge orders to [facility] and referral and orders to [facility]. Pt will discharge today and go to [facility] with [facility] at 1645 via [facility] ambulance. Pt, pt's family, and pt's RN notified.
--- NOTE | 2019-05-23 17:00 | NUR ---
attempted to give report at this time but legends stated the nurse would call me back due to being with a pt
--- NOTE | 2019-05-23 18:45 | NUR ---
pt is discharged to [facility] with hospice at 1815 via [facility] via stretcher. pt is lethargic but thats her baseline. pt family took all belongings with them home. pt has [address] per [address] delgado, also her aguilar catheter was left in place. pt was given pain medication before transfer. report given to Dinah at [facility] and she stated she had no further questions for me. discharge packet given to transportation with prescriptions inside.
== END 2019-05-23 18:15 | disposition hospice, inpatient (51) | DRG 871 ==
LOC: ER 18:04 → 6 SOUTH 20:10 → 1 WEST ICU 05-21 18:48 → 4 NORTH 05-23 01:00
PROVIDERS: ADMIT Internal Medicine; ATTEND Internal Medicine
DX: A41.9 Sepsis, unspecified organism (principal); J15.6 Pneumonia due to other Gram-negative bacteria; G92 Toxic encephalopathy; N17.9 Acute kidney failure, unspecified; K92.1 Melena; F03.90 Unspecified dementia, unspecified severity, without behavioral disturbance, psychotic disturbance, mood disturbance, and anxiety; E83.42 Hypomagnesemia; J40 Bronchitis, not specified as acute or chronic; J43.9 Emphysema, unspecified; B96.89 Other specified bacterial agents as the cause of diseases classified elsewhere; Z51.5 Encounter for palliative care; F17.210 Nicotine dependence, cigarettes, uncomplicated; D64.9 Anemia, unspecified; I95.9 Hypotension, unspecified; R09.02 Hypoxemia; Z91.14 Patient's other noncompliance with medication regimen
CPT/HCPCS: 36415; 36600; 70450; 71045; 71250; 78278; 80048; 80053; 80061; 80202; 81001; 82550; 82565; 82805; 83605; 83735; 83880; 84132; 84443; 84484; 85007; 85025; 85027; 86850; 86900; 86901; 87040; 87077; 87205; 93005; 93306; 93325; 94640; 94760; 96374; A4314; A9560; C9113; J0696; J2020; J2060; J2270; J2405; J2543; J3370; J3475; J7030; J7040; J7050; J7613; J7620; P9612; Q0144; 97110; 97530; 99285-25; G0378